=== PATIENT | male | born 1955 | race Caucasian/White ===

== ENCOUNTER 2016-10-11 20:25 | Inpatient (IN) | payer OTHER ==
[~2016-10-11] VITALS: Ht 167.6 cm; Wt 80.2 kg
[~2016-10-11 20:25] MED LIST: FURO20TA3 PO; HYDR12.58 PO; LISI10TA2 PO; [UNRECOGNIZED DRUG - OTHER]
[2016-10-11] MEDS ORDERED: SODIUM CHLORIDE 0.9% 1L BAG IV* STA (21:19)
[2016-10-11] MEDS ORDERED: FURO20TA3 PO (21:33)
[2016-10-11] MEDS ORDERED: SPIR50TA PO (21:34)
[2016-10-11 21:53] LABS: ABNORMAL IP MESSAGE 1; BASOPHILS % 0.4 % (0.0-2.0); EOSINOPHILS % 2.4 % (0.0-7.0); HEMATOCRIT 23.3 % (42.0-52.0); LYMPHOCYTES % 10.8 % (15.0-51.0); MEAN CORPUSCULAR HEMOGLOBIN 36.7 pg (29.0-33.0); MEAN CORPUSCULAR HGB CONC 34.3 g/dl (32.0-37.0); MEAN CORPUSCULAR VOLUME 106.9 fl (82.0-101.0); MEAN PLATELET VOLUME 10.9 fl (7.4-10.4); MONOCYTES % 12.7 % (0.0-11.0); NEUTROPHILS % 69.1 % (39.0-77.0); NUCLEATED RED BLOOD CELLS% 0.3 /100WBC (0.0-0.0); PLATELET COUNT 97 10^3/UL (140-415); POSITIVE DIFF @See below; RED BLOOD COUNT 2.18 10^6/ul (4.70-6.10); WHITE BLOOD COUNT 7.4 10^3/ul (4.8-10.8)
[2016-10-11 22:12] LABS: ALANINE AMINOTRANSFERASE 61 IU/L (13-69); ALBUMIN 2.7 g/dl (3.3-4.9); ALBUMIN/GLOBULIN RATIO 0.51; ALKALINE PHOSPHATASE 205 IU/L (42-121); ANION GAP 16 (8-16); ASPARTATE AMINO TRANSFERASE 153 IU/L (15-46); BILIRUBIN,INDIRECT 6.2 mg/dl (0-1.1); BILIRUBIN,TOTAL 7.7 mg/dl (0.2-1.3); BLOOD UREA NITROGEN 23 mg/dl (7-20); CALCIUM 9.1 mg/dl (8.4-10.2); CARBON DIOXIDE 17 mmol/L (21-31); CHLORIDE 103 mmol/L (97-110); CREATININE 1.15 mg/dl (0.61-1.24); GLUCOSE 101 mg/dl (70-220); SODIUM 130 mmol/L (135-144); TOTAL PROTEIN 7.9 g/dl (6.1-8.1)
--- NOTE | 2016-10-11 22:18 | ERA ---
ER Documentation Chief Complaint Date/Time DATE: 10/11/16 TIME: 22:18 Chief Complaint Chest discomfort HPI [id number] male, presenting to the ER because of chest discomfort about an hour prior to the ER, associated with fever, intermittent cough. He complains of chronic dizziness, denies shortness of breath, complains of denies abdominal pain, vomiting, dysuria, diarrhea. He does not smoke nor drink Past medical history: Cirrhosis, hypertension Past surgical history: None ROS All systems reviewed and are negative except as per history of present illness. Medications Home Meds Reported Medications Spironolactone* (Aldactone*) 50 Mg Tablet, 100 MG PO BID, #60 TAB 10/11/16 Furosemide* (Furosemide*) 20 Mg Tablet, 20 MG PO BID, #30 TAB 10/11/16 Discontinued Reported Medications [Cirrhosis Med] No Conflict Check 12/06/15 Furosemide* (Furosemide*) 20 Mg Tablet, 20 MG PO DAILY, #60 TAB 12/06/15 Hydrochlorothiazide* (Hydrochlorothiazide*) 12.5 Mg Tablet, 12.5 MG PO DAILY, # 30 TAB 12/06/15 Lisinopril* (Lisinopril*) 10 Mg Tablet, 10 MG PO DAILY, #30 TAB 12/06/15 Allergies Allergies: Coded Allergies: No Known Drug Allergies (Verified Allergy, Unknown, 10/11/16) PMhx/Soc History of Surgery: No Anesthesia Reaction: No Hx Neurological Disorder: No Hx Respiratory Disorders: No Hx Cardiac Disorders: Yes (HTN, HIGH BP) Hx Psychiatric Problems: No Hx Miscellaneous Medical Probl: Yes (DX'd Cirrosis in Feb) Hx Alcohol Use: Yes (QUIT feb 2016) Hx Substance Use: No Hx Tobacco Use: Yes (1 CIG /WEEK OR MONTH) Smoking Status: Light tobacco smoker Physical Exam Vitals Vital Signs Date Time Temp Pulse Resp B/P Pulse Ox O2 Delivery O2 Flow Rate FiO2 10/11/16 22:39 100.6 93 17 133/67 100 Room Air 10/11/16 20:50 100.6 110 16 131/99 99 Physical Exam Const: No acute distress. Head: Atraumatic. Eyes: Normal Conjunctiva. ENT: Normal External Ears, Nose and Mouth. Neck: Full range of motion. No meningismus. Resp: Clear to auscultation bilaterally. Cardio: Regular Tachycardic Abd: Soft, non distended, normal bowel sounds, non tender. Skin: No petechiae or rashes. Back: No midline or flank tenderness. Ext: Bilateral leg edema, no calf tenderness Neur: Awake and alert. No focal deficit Psych: Normal Mood and Affect. Result Diagram: 10/11/16211410/11/162114 Results 24 hrs Laboratory Tests Test 10/11/16 21:15 10/11/16 21:30 10/11/16 22:00 10/11/16 22:18 White Blood Count 7.410^3/ul Red Blood Count 2.1810^6/ul Hemoglobin 8.0g/dl Hematocrit 23.3% Mean Corpuscular Volume 106.9fl Mean Corpuscular Hemoglobin 36.7pg Mean Corpuscular Hemoglobin Concent 34.3g/dl Red Cell Distribution Width 16.0% Platelet Count 9710^3/UL Mean Platelet Volume 10.9fl Neutrophils % 69.1% Segmented Neutrophils % (Manual) 80% Lymphocytes % 10.8% Lymphocytes % (Manual) 9% Monocytes % 12.7% Monocytes % (Manual) 9% Eosinophils % 2.4% Eosinophils % (Manual) 2% Basophils % 0.4% Nucleated Red Blood Cells % 0.3/100WBC Neutrophils # (Manual) 10^3/ul Absolute Lymphocytes (Manual) Pending Lymphocytes # 0.710^3/ul Monocytes # 0.710^3/ul Absolute Monocytes (Manual) Pending Eosinophils # 0.110^3/ul Basophils # 10^3/ul Nucleated Red Blood Cells # 0.010^3/ul Macrocytosis 1+ Sodium Level 130mmol/L Potassium Level 6.0mmol/L Chloride Level 103mmol/L Carbon Dioxide Level 17mmol/L Anion Gap 16 Blood Urea Nitrogen 23mg/dl Creatinine 1.15mg/dl Glucose Level 101mg/dl Calcium Level 9.1mg/dl Total Bilirubin 7.7mg/dl Direct Bilirubin 1.50mg/dl Indirect Bilirubin 6.2mg/dl Aspartate Amino Transf (AST/SGOT) 153IU/L Alanine Aminotransferase (ALT/SGPT) 61IU/L Alkaline Phosphatase 205IU/L Troponin I < 0.012ng/ml Total Protein 7.9g/dl Albumin 2.7g/dl Globulin 5.20g/dl Albumin/Globulin Ratio 0.51 Lactic Acid Level 3.9mmol/L Urine Color STEF Urine Clarity SLIGHTLY CLOUDY Urine pH 5.0 Urine Specific [place] 1.019 Urine Ketones NEGATIVEmg/dL Urine Nitrite NEGATIVEmg/dL Urine Bilirubin 1+mg/dL Urine Urobilinogen 2+mg/dL Urine Leukocyte Esterase NEGATIVELeu/ul Urine Microscopic RBC 2/HPF Urine Microscopic WBC 2/HPF Urine Mucus FEW/HPF Urine Hemoglobin NEGATIVEmg/dL Urine Glucose NEGATIVEmg/dL Urine Total Protein NEGATIVEmg/dl Prothrombin Time 27.1Sec Prothrombin Time Ratio 2.1 INR International Normalized Ratio 2.48 Activated Partial Thromboplast Time 45.6Sec Current Medications Medications (Trade) Dose Ordered Sig/Spenser Route PRN Reason Start Time Stop Time Status Last Admin Dose Admin Sodium Chloride 2170 ml 2,170 ml BOLUS OVER 2 HOURS STAT IV* 10/11/16 21:19 10/11/16 21:20 DC 10/11/16 21:30 Ceftriaxone Sodium 50 ml @ 100 mls/hr ONCE ONCE IVPB 10/11/16 23:00 10/11/16 23:29 Azithromycin (Zithromax 500mg/ NS (Pmx)) 250 ml @ 250 mls/hr ONCE ONCE IVPB 10/11/16 23:00 10/11/16 23:59 Morphine Sulfate (morphine) 2 mg ONCE ONCE IV 10/11/16 23:00 10/11/16 23:09 DC Ondansetron HCl (Zofran Inj) 4 mg ONCE ONCE IV 10/11/16 23:09 10/11/16 23:10 DC Acetaminophen (Tylenol Tab) 650 mg ONCE ONCE PO 10/11/16 23:00 10/11/16 23:01 DC Procedures/MDM Repeat potassium is pending [place] [id number] Radiology Main Line: [phone] DIAGNOSTIC IMAGING REPORT Patient: JOSEE HAMILTON : 1955 Age: 60 Sex: M MR #: [id number] DOS: 10/11/162118 Ordering MD: MARIO GARCIA DO Location: E/R Room/Bed: PROCEDURE: CHEST - 1 VIEW CLINICAL INDICATION: 60 year-old male with shortness of breath and sepsis. TECHNIQUE: A single frontal AP semi-erect portable view of the chest was performed. The images were reviewed on a PACS workstation. COMPARISON: None. FINDINGS: The cardiomediastinal silhouette is within normal limits. There is a shallow inspiration. There is qiev-de-[id number] right pleural effusion with associate compressive atelectasis of the right lower lobe. A superimposed infiltrate cannot be excluded. There is minimal left basilar subsegmental atelectasis. There is no evidence for congestive heart failure. There is no evidence for pneumothorax. The osseous structures are intact. IMPRESSION: 1. Shallow inspiration. 2. Zkda-pb-dbohjcra right pleural effusion with associated right lower lobe compressive atelectasis. A superimposed infiltrate cannot be excluded. 3. Minimal left basilar subsegmental atelectasis. .Rory Vargas MD, Date Time Electronically viewed and signed by .Rory Vargas MD, MD on 10/11/2016 22:24 .M/ CC: MARIO GARCIA DO MEDICAL MAKING DECISION: The patient is a 60-year-old male, presenting with acute severe sepsis, acute pneumonia. Was treated with normal saline 30 mL/kg, Rocephin IV, Zithromax IV for acute severe sepsis due to acute pneumonia, morphine 2 mg IV for pain, Zofran 4 mg IV for nausea, Tylenol 650 mg p.o. for fever with good response The differential diagnoses considered include but are not limited to asthma, COPD, pneumonia, pulmonary embolus, pleural effusion, congestive heart failure. Admit MDM: Patient's infectious symptoms have not stabilized and the patient is at risk of rapid decompensation. The patient will be admitted for careful hydration, antibiotic therapy, and infectious source control. Severe Sepsis criteria: Infectious source: pna End organ damage indicated by: Lactate > 2.0 mmol/L Sepsis Management: Time of recognition of severe sepsis/septic shock:22:30 hr Within 3 hours of recognition: Blood cultures x 2 before broad-spectrum antibiotics: Yes 30 ml/kg NS bolus completed Initial lactate 3.9 Repeat lactate pending Critical Care: Critical care time 35 minutes excluding billable procedure Emergent fluid management while maintaining close respiratory support. Provision of immediate and broad-spectrum antibiotic therapy. Simultaneous assessment for possible sources in order to direct targeted therapy. Consideration for invasive and chemical support to prevent cardiopulmonary collapse. Septic Shock Assessment: Any lactic acid > 4.0 no Persistent hypotension (SBP < 90 or 40 mmHg drop, MAP < 65) despite 30 mL/kg IV fluid bolusno EKG: Read by emergency physician Rate/Rhythm: Sinus tachycardia 106 beats/min QRS, ST, T-waves: No ST elevation, no T inversion Impression: EKG Departure Diagnosis: Primary Impression: Severe sepsis Additional Impressions: Pneumonia Anemia Thrombocytopenia Coagulopathy Condition: Stable Comments I discussed the findings with the patient. I discussed the patient with the on- call hospitalist Dr. Vieira at 11:10 PM who was made aware of the lab, the treatment, the patient condition. The patient is admitted to medical surgery bed AVA MAE MD Oct 11, 2016 22:18
[2016-10-11 22:25] LABS: TROPONIN-I < 0.012 ng/ml (0.00-0.12)
--- NOTE | 2016-10-11 22:25 | RADRPT ---
PROCEDURE: CHEST - 1 VIEW CLINICAL INDICATION: 60 year-old male with shortness of breath and sepsis. TECHNIQUE: A single frontal AP semi-erect portable view of the chest was performed. The images we re reviewed on a PACS workstation. COMPARISON: None. FINDINGS: The cardiomediastinal silhouette is within normal limits. There is a shallow inspiration. There is m cis-jz-zbpakujc right pleural effusion with associate compressive atelectasis of the right lower lob e. A superimposed infiltrate cannot be excluded. There is minimal left basilar subsegmental atelec tasis. There is no evidence for congestive heart failure. There is no evidence for pneumothorax. Th e osseous structures are intact. IMPRESSION: 1. Shallow inspiration. 2. Sjuh-vs-wgshqkqt right pleural effusion with associated right lower lobe compressive atelectasis . A superimposed infiltrate cannot be excluded. 3. Minimal left basilar subsegmental atelectasis. .Rory Vargas MD, MD Date Time Electronically viewed and signed by .Rory Vargas MD, on 10/11/2016 22:24 .M/
[2016-10-11 22:46] LABS: INR 2.48; PROTIME 27.1 Sec (12.2-14.2); PT RATIO 2.1
[2016-10-11 22:47] LABS: PARTIAL THROMBOPLASTIN TIME 45.6 Sec (25.0-35.0)
[2016-10-11 22:50] LABS: EOSINOPHILS # 0.1 10^3/ul (0.0-0.5); EOSINOPHILS % (M) 2 % (0.0-7.0); LYMPHOCYTES # 0.7 10^3/ul (0.8-2.9); MONOCYTE # 0.7 10^3/ul (0.3-0.9); MONOCYTES % (M) 9 % (0-11)
[2016-10-11 22:51] LABS: BURR CELLS 2+
[2016-10-11 22:55] LABS: ADD UMIC NO; UR ASCORBIC ACID 40 mg/dL (NEGATIVE); UR BILIRUBIN (Dip) 1+ mg/dL (NEGATIVE); UR BLOOD (Dip) NEGATIVE (NEGATIVE); UR CLARITY SLIGHTLY CLOUDY (CLEAR); UR COLOR AMBER (YELLOW); UR GLUCOSE (Dip) NEGATIVE (NEGATIVE); UR KETONES (Dip) NEGATIVE (NEGATIVE); UR LEUKOCYTE ESTERASE (Dip) NEGATIVE Leu/ul (NEGATIVE); UR MUCUS FEW /HPF (NONE SEEN); UR NITRITE (Dip) NEGATIVE (NEGATIVE); UR RBC 2 /HPF (0-5); UR SPECIFIC GRAVITY (Dip) 1.019 (1.003-1.030); UR TOTAL PROTEIN (Dip) NEGATIVE (NEGATIVE); UR UROBILINOGEN (Dip) 2+ mg/dL (NEGATIVE)
[2016-10-11] MEDS ORDERED: morphine 2 MG INJ IV ONE (23:00)
[2016-10-11] MEDS ORDERED: CEFTRIAXONE 1 GM/50 ML (PMX) 50 ML IVPB ONE (23:00)
[2016-10-11] MEDS ORDERED: ACETAMINOPHEN 325 MG TAB PO ONE (23:00)
[2016-10-11] MEDS ORDERED: AZITHROMYCIN 500MG/NS (PMX) 250 ML IVPB ONE (23:00)
[2016-10-11] MEDS ORDERED: ONDANSETRON 4 MG INJ IV ONE (23:09)
[2016-10-12] VITALS (12 sets, daily range): BP systolic 99–108; BP diastolic 52–59; PULSE 93–107; RESP 18–22; TEMP 99.4; Ht 167.6 cm; Wt 80.2 kg
[2016-10-12] MEDS ORDERED: NA POLYST SULFON 15 GM/60 ML BTL PO ONE ×2 (01:25→02:00)
[2016-10-12] MEDS ORDERED: INSULIN REGULAR, HUMAN 100 UNIT/1 ML 3ML VIAL IV ONE (01:26)
[2016-10-12] MEDS ORDERED: ALBUTEROL 0.5% (NEB) 2.5 MG/0.5 ML AMP INH ONE (01:26)
[2016-10-12] MEDS ORDERED: DEXTROSE 50% 50 ML SYRINGE IV PRN (01:30)
[2016-10-12] MEDS ORDERED: FURO40TA4 PO (03:18)
[2016-10-12] MEDS ORDERED: ACETAMINOPHEN 325 MG TAB PO PRN (04:00)
[2016-10-12] MEDS ORDERED: SOD CHLORIDE 0.9% 500 ML IV ONE (04:00)
[2016-10-12] MEDS ORDERED: ONDANSETRON 4 MG INJ IV PRN (04:00)
[2016-10-12] MEDS ORDERED: morphine 2 MG INJ IV PRN (04:00)
[2016-10-12] MEDS: ALBUTEROL/IPRATROPIUM (NEB) 3 ML AMP HHN SCH ×5 (05:21→20:48)
[2016-10-12] MEDS: LEVOFLOXACIN 500MG/D5W (PMX) 100 ML IVPB SCH (05:39)
--- NOTE | 2016-10-12 05:56 | HP ---
Date/Time of Note Date/Time of Note DATE: 10/12/16 TIME: 05:45 Assessment/Plan VTE Prophylaxis VTE Prophylaxis Intervention: SCD's Lines/Catheters IV Catheter Type (from Nrs): Saline Lock Urinary Cath still in place: No Assessment/Plan Assessment/Plan 1. Sepsis, as evidenced by fever, tachycardia and lactic acidosis, likely secondary to pneumonia -IV antibiotic -Follow-up culture results 2. Chest pain, likely from pneumonia, however will rule out ACS -First troponin is negative and the EKG was no ST-T wave abnormalities -Trend troponin, obtain 2D echo -Supplemental oxygen, beta-katty, with as needed nitro and morphine -Cardiology consult as needed 3. Hyperkalemia, most likely due to Aldactone -Will hold Aldactone -He is status post insulin and Kayexalate in the ER -Repeat lab and correct as needed 4. Liver cirrhosis, diagnosed in February of this year -Continue Lasix 5. Anemia and thrombocytopenia, secondary to liver disease -Transfuse as needed 6. Hyperbilirubinemia, likely secondary to liver disease -We will order RUQ ultrasound HPI/ROS Admit Date/Time Admit Date/Time Oct 12, 2016 at 01:24 Hx of Present Illness This is a 60-year-old male with a history of hypertension and liver cirrhosis who presented to the emergency department complaining of chest pain and fever. Pain is slightly left-sided, described as pressure-like and is nonradiating. It started yesterday. Reported nausea but no vomiting. He also reported occasional shortness of breath which is chronic. When he presented to the ER, he was febrile with a temperature of 100.6, tachycardic with a heart rate of 110. Labs shows a potassium of 6.3, hemoglobin 8, PLT 97, sodium 130, lactic acid has been as high as 3.9 but the last one 2.3.TB 7.7 with DB of 1.5, AST 153. Chest x-ray shows mild to moderate right pleural effusion with probable superimposed infiltrate. . PMH/Family/Social Past Medical History Medical History: hypertension, other (Liver cirrhosis) Social History Smoking Status: Never smoker Drug Use: none Exam/Review of Systems Vital Signs Vitals Vital Signs Date Time Temp Pulse Resp B/P Pulse Ox O2 Delivery O2 Flow Rate FiO2 10/12/16 05:21 91 16 94 21 10/12/16 03:27 98.8 101/52 10/12/16 02:00 Room Air Intake and Output 10/11/16 10/11/16 10/12/16 15:00 23:00 07:00 Intake Total 2420 ml Balance 2420 ml Exam Constitutional: alert, oriented, well developed Head: atraumatic, normocephalic Eyes: PERRL Respiratory: diminished breath sounds Cardiovascular: other (Tachycardic with regular rhythm) Gastrointestinal: non-tender, soft Extremities: normal pulses Labs Result Diagram: 10/11/16211410/12/16 0040 Medications Medications Current Medications Dextrose 100 ml 100 ml ONCE PRN IV POC BLOOD GLUCOSE <250 MG/DL Last administered on 10/12/16 01:52; Admin Dose 100 ML; Start 10/12/16 at 01:30 Levofloxacin/ Dextrose (Levaquin 500mg/ D5W 100 ml (Pmx)) 100 ml @ 100 mls/hr Q24H IVPB Last administered on 10/12/16 05:39; Admin Dose 100 MLS/HR; Start 10/12/16 at 04:00 Ondansetron HCl (Zofran Inj) 4 mg Q6H PRN IV NAUSEA AND/OR VOMITING; Start 10/12 at 04:00 Acetaminophen (Tylenol Tab) 650 mg Q6H PRN PO PAIN AND OR ELEVATED TEMP; Start 10/12/16 at 04:00 Morphine Sulfate (morphine) 2 mg Q4H PRN IV pain; Start 10/12/16 at 04:00 SAE DAVISON MD Oct 12, 2016 05:56
[2016-10-12 07:41] LABS: ABNORMAL IP MESSAGE 1; HEMATOCRIT 20.8 % (42.0-52.0); MEAN CORPUSCULAR HEMOGLOBIN 36.1 pg (29.0-33.0); MEAN CORPUSCULAR HGB CONC 33.7 g/dl (32.0-37.0); MEAN CORPUSCULAR VOLUME 107.2 fl (82.0-101.0); MEAN PLATELET VOLUME 10.5 fl (7.4-10.4); NUCLEATED RED BLOOD CELLS% 0.1 /100WBC (0.0-0.0); POSITIVE DIFF @See below; RED BLOOD COUNT 1.94 10^6/ul (4.70-6.10); WHITE BLOOD COUNT 18.8 10^3/ul (4.8-10.8)
[2016-10-12 07:46] LABS: PLATELET COUNT 74 10^3/UL (140-415)
[2016-10-12 08:14] LABS: ALBUMIN 2.1 g/dl (3.3-4.9); ALBUMIN/GLOBULIN RATIO 0.46; BILIRUBIN,DIRECT 1.8 mg/dl (0.00-0.20); BILIRUBIN,INDIRECT 4.9 mg/dl (0-1.1); BILIRUBIN,TOTAL 6.7 mg/dl (0.2-1.3); CALCIUM 8.5 mg/dl (8.4-10.2); CREATININE 1.43 mg/dl (0.61-1.24); MAGNESIUM 1.9 mg/dl (1.7-2.5); PHOSPHORUS 3.9 mg/dl (2.5-4.9); TOTAL PROTEIN 6.6 g/dl (6.1-8.1)
[2016-10-12 09:58] LABS: ANISOCYTOSIS 2+ (0-0); GIANT THROMBO% (M) 1 % (0-0); METAMYELOCYTES %M 2 % (0-0); MONOCYTES % (M) 6 % (0-11); PLATELET ESTIMATE DECREASED; POIKILOCYTOSIS 3+ (0-0); POLYCHROMASIA 3+ (0-0)
--- NOTE | 2016-10-12 10:18 | RADRPT ---
PROCEDURE: Complete abdominal ultrasound. CLINICAL INDICATION: Abdominal pain TECHNIQUE: Huynh scale and color doppler ultrasound images of the complete abdomen. COMPARISON: None FINDINGS: Pancreas: Not visualized by the loom technician. Liver: Morphology:Normal in size. Contour: Nodularity is present. Echogenicity: Mild coarsening. Focal lesions:None. Main portal vein: Patent with hepatopetal flow. Biliary System: Gallbladder wall: Mildly thickened. Gallstones: None. Intrahepatic bile ducts: Normal caliber. Common bile duct diameter (mm): 3.0 Kidneys: Left kidney not identified. Right length (cm) : 9.6 Right cortical thickness: Normal. Echogenicity: Normal Hydronephrosis: None. Renal calculi: None. Focal lesions: None. Spleen: Size: Normal. 10.60 Focal lesions: None. Free fluid/ascites: Mild perihepatic ascites Abdominal aorta: Not visualized by the loom technician. Other findings: Partially visualized. Pleural effusion IMPRESSION: Cirrhotic appearing liver with mild ascites. Normal caliber intrahepatic extrahepatic biliary system. No gallstones. Mild gallbladder wall thickening is nonspecific in the presence of ascites/hepatic dysfunction if cl inical concern for acalculous cholecystitis HIDA scan can be obtained for further evaluation. RPTAT: AADD .Amaury Bailey MD, MD Date Time Electronically viewed and signed by .Amaury Bailey MD, MD on 10/12/2016 10:18 .B/
--- NOTE | 2016-10-12 11:03 | PN ---
Date/Time of Note Date/Time of Note DATE: 10/12/16 TIME: 10:58 Assessment/Plan VTE Prophylaxis VTE Prophylaxis Intervention: LMWH Lines/Catheters IV [facility] Saline Lock Urinary Cath still in place: No Assessment/Plan Chief Complaint/Hosp Course O: Admitted w fever lt-sided substernal atypical chest pain. Cough w no expectoration. Occasional abd pain. Has loose BMs no blood. Unable to characterize abd pain. No aggravating or relieving factors. Received antibiotics at [facility] recently. Quit alcohol February. S: Fever improved No pallor icterus adenopathy Regular Bs, diminished Rt, no tachypnea possibly some musculoskeletal tenderness. Bs +nt nd, no R/R/G Mild edema negative Homans sign A/P 1. Atypical chest pain. Probably musculoskeletal versus pleurisy stable rule out ACS 2. Rt pleural effusion. Should fever return, will need urgent thoracentesis with FFP 3. Diarrhea, review medicines. 4. Fever probably due to community-acquired pneumonia. Stable continue antibiotics. 5. Chronic cirrhosis/possible chronic liver disease sequently. No encephalopathy. Paracentesis as needed. Coagulopathy without any bleeding at present. 6. Past alcohol 7. Apical ischemia, possibly due to liver disease or n.p.o. status 8. Coronary artery disease? Problems: Exam/Review of Systems Vital Signs Vitals Vital Signs Date Time Temp Pulse Resp B/P Pulse Ox O2 Delivery O2 Flow Rate FiO2 10/12/16 09:42 101 18 97 21 10/12/16 07:56 98.3 105/53 10/12/16 02:00 Room Air Intake and Output 10/11/16 10/11/16 10/12/16 15:00 23:00 07:00 Intake Total 2420 ml Balance 2420 ml Results Result Diagram: 10/12/16 0648 10/12/16 0648 Results 24 hrs Laboratory Tests Test 10/11/16 21:15 10/11/16 21:30 10/11/16 22:00 10/11/16 22:18 White Blood Count 7.4 Red Blood Count 2.18 L Hemoglobin 8.0 L Hematocrit 23.3 L Mean Corpuscular Volume 106.9 H Mean Corpuscular Hemoglobin 36.7 H Mean Corpuscular Hemoglobin Concent 34.3 Red Cell Distribution Width 16.0 H Platelet Count 97 L Mean Platelet Volume 10.9 H Neutrophils % 69.1 Segmented Neutrophils % (Manual) 80 H Lymphocytes % 10.8 L Lymphocytes % (Manual) 9 L Monocytes % 12.7 H Monocytes % (Manual) 9 Eosinophils % 2.4 Eosinophils % (Manual) 2 Basophils % 0.4 Nucleated Red Blood Cells % 0.3 H Neutrophils # (Manual) Absolute Lymphocytes (Manual) 0.6 L Lymphocytes # 0.7 L Monocytes # 0.7 Absolute Monocytes (Manual) 0.6 Eosinophils # 0.1 Basophils # Nucleated Red Blood Cells # 0.0 Macrocytosis 1+ Sodium Level 130 L Potassium Level 6.0 H Chloride Level 103 Carbon Dioxide Level 17 L Anion Gap 16 Blood Urea Nitrogen 23 H Creatinine 1.15 Glucose Level 101 Calcium Level 9.1 Total Bilirubin 7.7 H Direct Bilirubin 1.50 H Indirect Bilirubin 6.2 H Aspartate Amino Transf (AST/SGOT) 153 H Alanine Aminotransferase (ALT/SGPT) 61 Alkaline Phosphatase 205 H Troponin I < 0.012 Total Protein 7.9 Albumin 2.7 L Globulin 5.20 H Albumin/Globulin Ratio 0.51 Lactic Acid Level 3.9 *H Urine Color STEF Urine Clarity SLIGHTLY CLOUDY A Urine pH 5.0 Urine Specific [place] 1.019 Urine Ketones NEGATIVE Urine Nitrite NEGATIVE Urine Bilirubin 1+ H Urine Urobilinogen 2+ H Urine Leukocyte Esterase NEGATIVE Urine Microscopic RBC 2 Urine Microscopic WBC 2 Urine Mucus FEW A Urine Hemoglobin NEGATIVE Urine Glucose NEGATIVE Urine Total Protein NEGATIVE Prothrombin Time 27.1 H Prothrombin Time Ratio 2.1 INR International Normalized Ratio 2.48 Activated Partial Thromboplast Time 45.6 H Test 10/11/16 23:00 10/12/16 00:40 10/12/16 06:48 10/12/16 08:28 Potassium Level 6.5 *H 6.3 *H 6.0 H Lactic Acid Level 2.6 *H 2.3 *H White Blood Count 18.8 #H Red Blood Count 1.94 L Hemoglobin 7.0 L Hematocrit 20.8 L Mean Corpuscular Volume 107.2 H Mean Corpuscular Hemoglobin 36.1 H Mean Corpuscular Hemoglobin Concent 33.7 Red Cell Distribution Width 16.0 H Platelet Count 74 #L Mean Platelet Volume 10.5 H Neutrophils % Segmented Neutrophils % (Manual) 70 Band Neutrophils % (Manual) 20 H Lymphocytes % Lymphocytes % (Manual) 2 L Monocytes % Monocytes % (Manual) 6 Eosinophils % Basophils % Metamyelocytes % (manual) 2 H Nucleated Red Blood Cells % 0.1 H Neutrophils # (Manual) 13.9 H Band Neutrophils # 3.7 H Absolute Lymphocytes (Manual) 0.3 L Lymphocytes # Monocytes # Absolute Monocytes (Manual) 1.1 H Eosinophils # Basophils # Metamyelocytes # 0.3 H Nucleated Red Blood Cells # Thrombocytosis 1 H Platelet Estimate DECREASED Polychromasia 3+ Poikilocytosis 3+ Anisocytosis 2+ Macrocytosis 2+ Sodium Level 132 L Chloride Level 109 Carbon Dioxide Level 15 L Anion Gap 14 Blood Urea Nitrogen 23 H Creatinine 1.43 H Glucose Level 37 #*L Calcium Level 8.5 Phosphorus Level 3.9 Magnesium Level 1.9 Total Bilirubin 6.7 H Direct Bilirubin 1.80 H Indirect Bilirubin 4.9 H Aspartate Amino Transf (AST/SGOT) 127 H Alanine Aminotransferase (ALT/SGPT) 55 Alkaline Phosphatase 166 H Troponin I 0.021 Total Protein 6.6 # Albumin 2.1 L Globulin 4.50 H Albumin/Globulin Ratio 0.46 Bedside Glucose 101 Test 10/12/16 08:29 10/12/16 09:26 Bedside Glucose 121 Fasting Glucose 68 L Medications Medications Current Medications Dextrose 100 ml 100 ml ONCE PRN IV POC BLOOD GLUCOSE <250 MG/DL Last administered on 10/12/16 01:52; Admin Dose 100 ML; Start 10/12/16 at 01:30 Levofloxacin/ Dextrose (Levaquin 500mg/ D5W 100 ml (Pmx)) 100 ml @ 100 mls/hr Q24H IVPB Last administered on 10/12/16 05:39; Admin Dose 100 MLS/HR; Start 10/12/16 at 04:00 Ondansetron HCl (Zofran Inj) 4 mg Q6H PRN IV NAUSEA AND/OR VOMITING; Start 10/12 at 04:00 Acetaminophen (Tylenol Tab) 650 mg Q6H PRN PO PAIN AND OR ELEVATED TEMP; Start 10/12/16 at 04:00 Morphine Sulfate (morphine) 2 mg Q4H PRN IV pain; Start 10/12/16 at 04:00 LINWOOD SHERIDAN MD Oct 12, 2016 11:02
[2016-10-12] MEDS ORDERED: SOD CHLORIDE 0.9% 250 ML IV* ONE (11:04)
[2016-10-12] MEDS: FAMOTIDINE 20 MG TAB PO SCH (14:14)
[2016-10-12 16:35] LABS: INR 3.18; PROTIME 33.1 Sec (12.2-14.2); PT RATIO 2.6
[2016-10-13] VITALS (12 sets, daily range): BP systolic 104–145; BP diastolic 50–74; PULSE 91–103; RESP 16–20
[2016-10-13] MEDS: ALBUTEROL/IPRATROPIUM (NEB) 3 ML AMP HHN SCH ×5 (01:34→12:42)
[2016-10-13] MEDS: LEVOFLOXACIN 500MG/D5W (PMX) 100 ML IVPB SCH (03:35)
[2016-10-13 06:06] LABS: HAAIG REFLEX REFLEX FILED
[2016-10-13 06:10] LABS: ABNORMAL IP MESSAGE 1; HEMATOCRIT 17.6 % (42.0-52.0); MEAN CORPUSCULAR HEMOGLOBIN 36.2 pg (29.0-33.0); MEAN CORPUSCULAR HGB CONC 33.5 g/dl (32.0-37.0); MEAN PLATELET VOLUME 10.2 fl (7.4-10.4); NUCLEATED RED BLOOD CELLS% 0.1 /100WBC (0.0-0.0); PLATELET COUNT 68 10^3/UL (140-415); POSITIVE DIFF @See below; RED BLOOD COUNT 1.63 10^6/ul (4.70-6.10); RED CELL DISTRIBUTION WIDTH 16.5 % (11.5-14.5); WHITE BLOOD COUNT 16.2 10^3/ul (4.8-10.8)
[2016-10-13 06:23] LABS: HEMOGLOBIN 5.9 g/dl (14.0-18.0); INR 2.36; PROTIME 26.1 Sec (12.2-14.2)
[2016-10-13] MEDS ORDERED: SOD CHLORIDE 0.9% 250 ML IV* ONE (06:26)
[2016-10-13 06:32] LABS: ALANINE AMINOTRANSFERASE 60 IU/L (13-69); ALBUMIN 2.1 g/dl (3.3-4.9); ALBUMIN/GLOBULIN RATIO 0.52; ALKALINE PHOSPHATASE 141 IU/L (42-121); ANION GAP 12 (8-16); ASPARTATE AMINO TRANSFERASE 107 IU/L (15-46); BILIRUBIN,INDIRECT 4.9 mg/dl (0-1.1); BILIRUBIN,TOTAL 6.4 mg/dl (0.2-1.3); BLOOD UREA NITROGEN 28 mg/dl (7-20); CALCIUM 8.5 mg/dl (8.4-10.2); CARBON DIOXIDE 17 mmol/L (21-31); CHLORIDE 109 mmol/L (97-110); CHOL/HDL RATIO 2.9 RATIO; CHOLESTEROL 50 mg/dl (100-200); CREATININE 1.32 mg/dl (0.61-1.24); GLUCOSE 83 mg/dl (70-220); HDL CHOLESTEROL 17 mg/dl (30-78); MAGNESIUM 1.9 mg/dl (1.7-2.5); PHOSPHORUS 4.2 mg/dl (2.5-4.9); POTASSIUM 5.1 mmol/L (3.5-5.1); SODIUM 133 mmol/L (135-144); TOTAL PROTEIN 6.1 g/dl (6.1-8.1); TRIGLYCERIDES 37 mg/dl (0-149)
[2016-10-13 06:48] LABS: TROPONIN-I < 0.012 ng/ml (0.00-0.12)
[2016-10-13 07:16] LABS: HEPATITIS B CORE ANTIBODY NEGATIVE (NEGATIVE)
[2016-10-13] MEDS: FAMOTIDINE 20 MG TAB PO SCH (09:09)
[2016-10-13 09:14] LABS: ANISOCYTOSIS 2+ (0-0); EOSINOPHILS % (M) 2 % (0-7); ERYTHROBLAST% (NRBC) (M) 1 % (0-0); GIANT THROMBO% (M) 1 % (0-0); MICROCYTOSIS 1+ (0-0); MONOCYTES % (M) 14 % (0-11); PLATELET ESTIMATE DECREASED; POIKILOCYTOSIS 3+ (0-0); POLYCHROMASIA 3+ (0-0)
--- NOTE | 2016-10-13 11:27 | PN ---
Date/Time of Note Date/Time of Note DATE: 10/13/16 TIME: 11:21 Assessment/Plan VTE Prophylaxis VTE Prophylaxis Intervention: contraindicated VTE Contraindication Reason: blood coagulation disorder Lines/Catheters IV [facility] (from [facility]): Saline Lock Urinary Cath still in place: No Assessment/Plan Chief Complaint/Hosp Course S: Admitted w fever lt-sided substernal atypical chest pain. Cough w no expectoration. Occ abd pain. Has loose BMs no blood. Unable to characterize abd pain. No aggravating or relieving factors. Received antibiotics at [place] recently. Quit alcohol February. 10/13- no further cp. abd pain/ diarrhea. no active bleeding. no dyspnea. S: Fever improved No pallor icterus Reg; no m/r/g Bs, dimin Rt, no tachypnea. Bs +nt nd, no R/R/G Mild edema negative Homans sign A/P 1. Atypical chest pain. Probably musculoskeletal vs pleurisy. no ACS 2. Rt pleural effusion. Should fever return, will need urgent thoracentesis with FFP 3. Diarrhea, review medicines. ro c diff 4. Fever probably due to CAP. Stable finish antibiotics. 5. Chr cirrhosis/possible chr liver dz sequela. No encephalopathy. Paracentesis prn. Coagulopathy without any bleeding at present. 6. Past alcohol 7. Hypoglycemia; possibly due to liver dz or npo status 8. Coronary artery disease? 9. Hep C? confirmatory test needed. 10. Anemia- likely chr dz; occult stool still pending. Ct a/p ordered. h/h @ 8pm. being transfused. Problems: Exam/Review of Systems Vital Signs Vitals Vital Signs Date Time Temp Pulse Resp B/P Pulse Ox O2 Delivery O2 Flow Rate FiO2 10/13/16 09:23 116 20 98 21 10/13/16 08:07 98.3 109/61 10/12/16 02:00 Room Air Intake and Output 10/12/16 10/12/16 10/13/16 15:00 23:00 07:00 Intake Total 800 ml 772 ml 400 ml Balance 800 ml 772 ml 400 ml Results Result Diagram: 10/13/16 0551 10/13/16 0551 Results 24 hrs Laboratory Tests Test 10/12/16 12:50 10/12/16 16:05 10/13/16 05:32 10/13/16 05:50 Bedside Glucose 142 Prothrombin Time 33.1 #H Prothrombin Time Ratio 2.6 INR International Normalized Ratio 3.18 Lab Scanned Report BLOOD TRANSFUSION Ferritin 233.0 Test 10/13/16 05:51 10/13/16 05:52 10/13/16 08:00 White Blood Count 16.2 H Red Blood Count 1.63 L Hemoglobin 5.9 *L Hematocrit 17.6 L Mean Corpuscular Volume 108.0 H Mean Corpuscular Hemoglobin 36.2 H Mean Corpuscular Hemoglobin Concent 33.5 Red Cell Distribution Width 16.5 H Platelet Count 68 L Mean Platelet Volume 10.2 Neutrophils % Segmented Neutrophils % (Manual) 73 Band Neutrophils % (Manual) 4 Lymphocytes % Lymphocytes % (Manual) 7 L Monocytes % Monocytes % (Manual) 14 H Eosinophils % Eosinophils % (Manual) 2 Basophils % Nucleated Red Blood Cells % 1 H Neutrophils # (Manual) 11.9 H Band Neutrophils # 0.6 Absolute Lymphocytes (Manual) 1.1 Lymphocytes # Monocytes # Absolute Monocytes (Manual) 2.2 H Eosinophils # Basophils # Nucleated Red Blood Cells # Thrombocytosis 1 H Platelet Estimate DECREASED Polychromasia 3+ Poikilocytosis 3+ Anisocytosis 2+ Microcytosis 1+ Macrocytosis 2+ Prothrombin Time 26.1 #H Prothrombin Time Ratio 2.0 INR International Normalized Ratio 2.36 Sodium Level 133 L Potassium Level 5.1 Chloride Level 109 Carbon Dioxide Level 17 L Anion Gap 12 Blood Urea Nitrogen 28 H Creatinine 1.32 H Glucose Level 83 # Calcium Level 8.5 Phosphorus Level 4.2 Magnesium Level 1.9 Total Bilirubin 6.4 H Direct Bilirubin 1.50 H Indirect Bilirubin 4.9 H Aspartate Amino Transf (AST/SGOT) 107 H Alanine Aminotransferase (ALT/SGPT) 60 Alkaline Phosphatase 141 H Lactate Dehydrogenase 642 H Troponin I < 0.012 Total Protein 6.1 Albumin 2.1 L Globulin 4.00 H Albumin/Globulin Ratio 0.52 Triglycerides Level 37 Cholesterol Level 50 L LDL Cholesterol, Calculated 26 HDL Cholesterol 17 L Cholesterol/HDL Ratio 2.9 Thyroid Stimulating Hormone (TSH) 3.360 Hepatitis B Surface Antigen NEGATIVE Hepatitis B Core Total Antibody NEGATIVE Hepatitis C Antibody REACTIVE H Bedside Glucose 147 Medications Medications Current Medications Dextrose 100 ml 100 ml ONCE PRN IV POC BLOOD GLUCOSE <250 MG/DL Last administered on 10/12/16t 01:52; Admin Dose 100 ML; Start 10/12/16 at 01:30 Levofloxacin/ Dextrose (Levaquin 500mg/ D5W 100 ml (Pmx)) 100 ml @ 100 mls/hr Q24H IVPB Last administered on 10/13/16 03:35; Admin Dose 100 MLS/HR; Start 10/12/16 at 04:00 Ondansetron HCl (Zofran Inj) 4 mg Q6H PRN IV NAUSEA AND/OR VOMITING; Start 10/12 at 04:00 Acetaminophen (Tylenol Tab) 650 mg Q6H PRN PO PAIN AND OR ELEVATED TEMP; Start 10/12/16 at 04:00 Morphine Sulfate (morphine) 2 mg Q4H PRN IV pain; Start 10/12/16 at 04:00 Famotidine (Pepcid) 20 mg DAILY PO Last administered on 10/13/16 09:09; Admin Dose 20 MG; Start 10/12/16 at 11:30 LINWOOD SHERIDAN MD Oct 13, 2016 11:27
[2016-10-13] MEDS ORDERED: PHYTONADIONE 10 MG/ML INJ SC ONE (11:30)
[2016-10-13] MEDS ORDERED: ALBUTEROL/IPRATROPIUM (NEB) 3 ML AMP HHN PRN (15:30)
[2016-10-13] MEDS: metroNIDAZOLE 500 MG TAB PO SCH ×2 (16:18→21:41)
[2016-10-13 19:58] LABS: HEMATOCRIT 24.1 % (42.0-52.0); HEMOGLOBIN 8.4 g/dl (14.0-18.0)
[2016-10-13] MEDS: LACTOBACILLUS RHAMNOSUS CAP PO SCH (21:41)
[2016-10-14] VITALS (12 sets, daily range): BP systolic 108–128; BP diastolic 59–69; PULSE 79–98; RESP 18–20
[2016-10-14] MEDS: LEVOFLOXACIN 500 MG TAB PO SCH (06:21)
[2016-10-14] MEDS: metroNIDAZOLE 500 MG TAB PO SCH ×3 (06:21→21:59)
[2016-10-14 08:08] LABS: ABNORMAL IP MESSAGE 1; HEMATOCRIT 23.4 % (42.0-52.0); HEMOGLOBIN 8.2 g/dl (14.0-18.0); MEAN CORPUSCULAR HEMOGLOBIN 35.5 pg (29.0-33.0); MEAN CORPUSCULAR VOLUME 101.3 fl (82.0-101.0); MEAN PLATELET VOLUME 10.8 fl (7.4-10.4); NUCLEATED RED BLOOD CELLS% 0.2 /100WBC (0.0-0.0); PLATELET COUNT 65 10^3/UL (140-415); POSITIVE DIFF @See below; RED BLOOD COUNT 2.31 10^6/ul (4.70-6.10); WHITE BLOOD COUNT 10.5 10^3/ul (4.8-10.8)
[2016-10-14 08:22] LABS: INR 2.54; PROTIME 27.7 Sec (12.2-14.2); PT RATIO 2.2
[2016-10-14 08:32] LABS: ALBUMIN 1.9 g/dl (3.3-4.9); ALBUMIN/GLOBULIN RATIO 0.46; BILIRUBIN,DIRECT 2.1 mg/dl (0.00-0.20); BILIRUBIN,INDIRECT 4.9 mg/dl (0-1.1); CALCIUM 8.7 mg/dl (8.4-10.2); CREATININE 0.9 mg/dl (0.61-1.24); MAGNESIUM 1.9 mg/dl (1.7-2.5); PHOSPHORUS 3.6 mg/dl (2.5-4.9); POTASSIUM 4.8 mmol/L (3.5-5.1)
[2016-10-14] MEDS: LACTOBACILLUS RHAMNOSUS CAP PO SCH ×2 (09:06→21:59)
[2016-10-14] MEDS: FAMOTIDINE 20 MG TAB PO SCH (09:06)
[2016-10-14 09:32] LABS: FOLATE 8.9 ng/ml (2.8-20.0)
[2016-10-14 09:35] LABS: ANISOCYTOSIS 3+ (0-0); BASOPHILS % (M) 2 % (0-2); EOSINOPHILS % (M) 4 % (0-7); GIANT THROMBO% (M) 1 % (0-0); METAMYELOCYTES %M 3 % (0-0); MICROCYTOSIS 2+ (0-0); MONOCYTES % (M) 11 % (0-11); MYELOCYTES % (M) 2 % (0-0); PLATELET ESTIMATE DECREASED; POIKILOCYTOSIS 3+ (0-0); POLYCHROMASIA 3+ (0-0)
--- NOTE | 2016-10-14 15:26 | PN ---
Date/Time of Note Date/Time of Note DATE: 10/14/16 TIME: 14:46 Assessment/Plan VTE Prophylaxis VTE Prophylaxis Intervention: contraindicated VTE Contraindication Reason: blood coagulation disorder Lines/Catheters IV C[facility] Type (from [facility] Saline Lock Urinary Cath still in place: No Assessment/Plan Assessment/Plan 1. Abdominal pain at umbilicus - CT abd/pelvis previously ordered 2/ to abdominal pain and diarrhea. Will r/ o any structural abnormalities vs colitis vs toxic megacolon as cause of pain 2. Cdiff colitis - Continue on Flagyl day 2 and lactobacillus 3. Atypical chest pain - resolved 4. Hepatitis C - Repeat HCV AB and will add HCV RNA testing this am due to +HCV Ab and possibility of false positive since no risk factors - Patient denies any h/o IV drug abuse or blood transfusions in the 80s - If +, will most likely need to be set up with GI specialist 5. Chronic alcohol induced cirrhosis - stable - No encephalopathy appreciated - paracentesis PRN and last was 3 months ago but denies any infections, fevers - no acute abdomen appreciated 6. Elevated liver enzymes - CT abdomen/pelvis pending - GB US showed sludge without stones, may need HIDA based on CT results and if LFTs continue to worsen 7. anemia secondary to liver cirrhosis - stable. will continue to monitor and transfuse if hgb <7 - tolerated previous transfusions well - MCV elevated but B12 and folate normal 8. h/o alcohol abuse - quit in February Subjective 24 Hr Interval Summary Free Text/Dictation Patient seen and examined at bedside. States feels as if he is more swollen in the upper extremities but denies any pain or discomfort. Also c/o 6/10 umbilical pain with associated nausea. Admits to lightheadedness when changes positions quickly but no LOC. Denies any fevers, chills, kayla bleeding, or RUQ pain. Exam/Review of Systems Vital Signs Vitals Vital Signs Date Time Temp Pulse Resp B/P Pulse Ox O2 Delivery O2 Flow Rate FiO2 10/14/16 12:13 85 10/14/16 11:45 97.7 18 114/62 99 10/13/16 12:42 21 10/12/16 02:00 Room Air Exam General- NAD, awake and alert HEENT- scleral icterus b/l, dry mucous membranes CVS- RRR, no murmurs Lungs- crackles appreciated at bases bilaterally, no wheezes, equal chest rise Abd- soft, tender at umbilicus, nondistended, no fluid shift, tympanic, no guarding or rebound. Ext- 2+ LE edema R>L, swelling of hands and forearms bilaterally, pulses appreciated in all extremities, no flapping tremors Skin- no caput medusa or telangiectasias Results Result Diagram: 10/14/16 0731 10/14/16 0731 Results 24 hrs Laboratory Tests Test 10/13/16 19:52 10/14/16 07:31 Hemoglobin 8.4 #L 8.2 L Hematocrit 24.1 #L 23.4 L White Blood Count 10.5 # Red Blood Count 2.31 #L Mean Corpuscular Volume 101.3 H Mean Corpuscular Hemoglobin 35.5 H Mean Corpuscular Hemoglobin Concent 35.0 Red Cell Distribution Width 20.0 #H Platelet Count 65 L Mean Platelet Volume 10.8 H Neutrophils % Segmented Neutrophils % (Manual) 66 Band Neutrophils % (Manual) 2 Lymphocytes % Lymphocytes % (Manual) 10 L Monocytes % Monocytes % (Manual) 11 Eosinophils % Eosinophils % (Manual) 4 Basophils % Basophils % (Manual) 2 Metamyelocytes % (manual) 3 H Myelocytes % (Manual) 2 H Nucleated Red Blood Cells % 0.2 H Neutrophils # (Manual) 7.0 Band Neutrophils # 0.2 Absolute Lymphocytes (Manual) 1.0 Lymphocytes # Monocytes # Absolute Monocytes (Manual) 1.1 H Eosinophils # Basophils # Basophils # (Manual) 0.2 H Metamyelocytes # 0.3 H Myelocytes # 0.2 H Nucleated Red Blood Cells # Thrombocytosis 1 H Platelet Estimate DECREASED Polychromasia 3+ Poikilocytosis 3+ Anisocytosis 3+ Microcytosis 2+ Macrocytosis 1+ Prothrombin Time 27.7 H Prothrombin Time Ratio 2.2 INR International Normalized Ratio 2.54 Sodium Level 132 L Potassium Level 4.8 Chloride Level 108 Carbon Dioxide Level 20 L Anion Gap 9 Blood Urea Nitrogen 21 H Creatinine 0.90 Glucose Level 85 Calcium Level 8.7 Phosphorus Level 3.6 Magnesium Level 1.9 Total Bilirubin 7.0 H Direct Bilirubin 2.10 #H Indirect Bilirubin 4.9 H Aspartate Amino Transf (AST/SGOT) 97 H Alanine Aminotransferase (ALT/SGPT) 55 Alkaline Phosphatase 155 H Total Protein 6.0 L Albumin 1.9 L Globulin 4.10 H Albumin/Globulin Ratio 0.46 Vitamin B12 Level > 1000 H Folate 8.9 Medications Medications Current Medications Dextrose (D50w Syringe) 100 ml ONCE PRN IV POC BLOOD GLUCOSE <250 MG/DL Last administered on 10/12/16 01:52; Admin Dose 100 ML; Start 10/12/16 at 01:30 Ondansetron HCl (Zofran Inj) 4 mg Q6H PRN IV NAUSEA AND/OR VOMITING; Start 10/12 at 04:00 Acetaminophen (Tylenol Tab) 650 mg Q6H PRN PO PAIN AND OR ELEVATED TEMP; Start 10/12/16 at 04:00 Morphine Sulfate (morphine) 2 mg Q4H PRN IV pain; Start 10/12/16 at 04:00 Famotidine (Pepcid) 20 mg DAILY PO Last administered on 10/14/16 09:06; Admin Dose 20 MG; Start 10/12/16 at 11:30 Levofloxacin (Levaquin) 500 mg DAILY@06 PO Last administered on 10/14/16 06:21 ; Admin Dose 500 MG; Start 10/14/16 at 06:00 Metronidazole (Flagyl) 500 mg Q8 PO Last administered on 10/14/16 06:21; Admin Dose 500 MG; Start 10/13/16 at 15:30 Lactobacillus Acidophilus/ Rhamnosus (Culturelle) 1 cap BID PO Last administered on 10/14/16 09:06; Admin Dose 1 CAP; Start 10/13/16 at 21:00 POPEYE JULIEN MD Oct 14, 2016 15:25
--- NOTE | 2016-10-14 16:42 | RADRPT ---
PROCEDURE: CT Abdomen and Pelvis without contrast. CLINICAL INDICATION: Abdominal pelvic pain. Diarrhea. TECHNIQUE: CT scan of the abdomen and pelvis without contrast was performed on a multidetector hig h-resolution CT scanner. The patient was scanned without intravenous contrast. Coronal and sagittal reformatted images were obtained from the axial source images. Images were reviewed on a high-resol [employer] PACS workstation. The total exam CTDI equals 15.35 mGy and the total exam DLP equals 944.21 mG y-cm. One or more of the following dose reduction techniques were used: - Automated exposure control. - Adjustment of the mA and/or kV according to patient size. - Use of iterative reconstruction technique. COMPARISON: Ultrasound abdomen 10/12/2016 FINDINGS: CT abdomen: The lung bases are remarkable for a very large right-sided pleural effusion. The heart size is norm al with a small circumferential pericardial effusion. Minor atelectasis is seen in the left lung bas e. The liver is shrunken and cirrhotic in appearance. Severe cirrhotic changes are present. The sp nata is normal in size and homogeneous in density. The stomach is distended and filled with food an d ingested material, but is otherwise grossly unremarkable. The pancreas as visualized is normal. The gallbladder is remarkable for circumferential gallbladder wall thickening and edema with small l ayering gallstones, reactive in nature secondary to the cirrhosis. The biliary tree is unremarkable and there is no evidence for biliary dilatation. The adrenal glands are symmetric and normal. The kidneys are symmetrically unremarkable as well. No renal calculus or obstructive uropathy or mass lesion is seen. The aorta is of normal caliber. Aortic vascular calcifications are present. There is no retroperit tamez lymphadenopathy. The hoang hepatis region is clear. The bowel and mesentery, as visualized, are equally remarkable for diffuse scattered mesenteric edema. CT pelvis: The small bowel loops situated within the pelvis are unremarkable. The pelvic organs are normal. T he pelvic sidewalls and inguinal regions are clear. The sigmoid colon and rectum are remarkable for sigmoid diverticulosis. No mass or adenopathy is seen. No free fluid is present. No acute inflamma tion is identified at this time. Third spacing and edema of the subcutaneous tissues of the abdomin al pelvic wall is identified. The surrounding osseous structures are remarkable for degenerative spondylosis of the spine. No ost eolytic or osteoblastic lesion is detected. Multilevel degenerative enthesopathy of the spine is marycruz ntified. IMPRESSION: 1. Very large right pleural effusion with adjacent atelectasis. 2. Severe, advanced, end-stage cirrhosis of the liver. 3. Scattered mesenteric edema throughout the abdominal pelvic cavity. 4. Sigmoid diverticulosis, without evidence for diverticulitis. 5. Scattered benign chronic age-related senescent changes. 6. Reactive gallbladder wall thickening and edema with gallstones. 7. Significant third spacing and edema throughout the body. RPTAT: HMJB .Kal Silva MD, Date Time Electronically viewed and signed by .Kal Silva MD, on 10/14/2016 16:42 .B/
[2016-10-15] VITALS (12 sets, daily range): BP systolic 99–108; BP diastolic 56–64; PULSE 80–105; RESP 17–20
[2016-10-15] MEDS: ZOLPIDEM 5 MG TAB PO PRN (01:31)
[2016-10-15] MEDS: LEVOFLOXACIN 500 MG TAB PO SCH (06:05)
[2016-10-15] MEDS: metroNIDAZOLE 500 MG TAB PO SCH ×2 (06:05→13:10)
[2016-10-15 07:36] LABS: ABNORMAL IP MESSAGE 1; HEMATOCRIT 23.6 % (42.0-52.0); MEAN CORPUSCULAR HEMOGLOBIN 34.8 pg (29.0-33.0); MEAN CORPUSCULAR HGB CONC 33.9 g/dl (32.0-37.0); MEAN CORPUSCULAR VOLUME 102.6 fl (82.0-101.0); MEAN PLATELET VOLUME 10.8 fl (7.4-10.4); PLATELET COUNT 63 10^3/UL (140-415); POSITIVE DIFF @See below; RED CELL DISTRIBUTION WIDTH 19.9 % (11.5-14.5); WHITE BLOOD COUNT 9.3 10^3/ul (4.8-10.8)
[2016-10-15 08:03] LABS: ALBUMIN 1.8 g/dl (3.3-4.9); ALBUMIN/GLOBULIN RATIO 0.46; BILIRUBIN,DIRECT 1.3 mg/dl (0.00-0.20); BILIRUBIN,TOTAL 5.3 mg/dl (0.2-1.3); CALCIUM 8.5 mg/dl (8.4-10.2); CREATININE 0.84 mg/dl (0.61-1.24); MAGNESIUM 1.8 mg/dl (1.7-2.5); TOTAL PROTEIN 5.7 g/dl (6.1-8.1)
[2016-10-15] MEDS: LACTOBACILLUS RHAMNOSUS CAP PO SCH (08:47)
[2016-10-15] MEDS: FAMOTIDINE 20 MG TAB PO SCH (08:47)
[2016-10-15 10:31] LABS: ANISOCYTOSIS 2+ (0-0); BASOPHILS % (M) 1 % (0-2); BURR CELLS 1+ (0-0); EOSINOPHILS % (M) 4 % (0-7); ERYTHROBLAST% (NRBC) (M) 1 % (0-0); HYPOCHROMASIA 1+ (0-0); METAMYELOCYTES %M 7 % (0-0); MONOCYTES % (M) 12 % (0-11); MYELOCYTES % (M) 1 % (0-0); PLATELET ESTIMATE DECREASED; POIKILOCYTOSIS 3+ (0-0); PROMYELOCYTES #M 0 10^3/ul (0-0); PROMYELOCYTES % (M) 1 % (0-0)
[2016-10-15] MEDS ORDERED: PHYTONADIONE 5 MG in DEXTROSE 5% 50 ML IVPB SCH (11:30)
[2016-10-15 12:09] LABS: INR 2.77; PROTIME 29.6 Sec (12.2-14.2); PT RATIO 2.3
--- NOTE | 2016-10-15 12:48 | PN ---
Date/Time of Note Date/Time of Note DATE: 10/15/16 TIME: 12:34 Assessment/Plan VTE Prophylaxis VTE Prophylaxis Intervention: contraindicated VTE Contraindication Reason: blood coagulation disorder Lines/Catheters [facility] Saline Lock Urinary Cath still in place: No Assessment/Plan Assessment/Plan 1. Abdominal pain - Still present in umbilicus and RUQ - CT abdomen/pelvis showed reactive gallbladder wall thickening and edema with gallstones. US of gallbladder showed mild gallbladder wall thickening with no stones. Discuss with patient that this may be the cause of his pain and surgery may be needed for intervention. Also offered HIDA scan which he would like to pursue to rule out cholecystitis and if present, will consult Surgery. 2. Large right pleural effusion - Patient not symptomatic at rest but does experiencing SOB with exertion - Will order US thoracentesis with pleural fluid studies; however, INR is elevated and will give Vit K today and tomorrow 3. Cdiff colitis - Continue on Flagyl day 2 and lactobacillus - Stool more formed today 4. Atypical chest pain - resolved 5. Hepatitis C - awaiting repeat HCV RNA - Patient denies any h/o IV drug abuse or blood transfusions in the 80s - If +, will most likely need to be set up with GI specialist 6. Chronic alcohol induced cirrhosis - stable - No encephalopathy appreciated - paracentesis PRN and last was 3 months ago but denies any infections, fevers - no acute abdomen appreciated 7. anemia secondary to liver cirrhosis - stable. will continue to monitor and transfuse if hgb <7 - tolerated previous transfusions well - MCV elevated but B12 and folate normal 8. h/o alcohol abuse - quit in February Subjective 24 Hr Interval Summary Free Text/Dictation Patient seen and examined at bedside. Sleeping comfortable but arousable. States his abdominal pain has not changed since yesterday and still located at umbilicus and RUQ. Does admit to SOB with ambulation and has had thoracentesis in the past for pleural effusions. Exam/Review of Systems Vital Signs Vitals Vital Signs Date Time Temp Pulse Resp B/P Pulse Ox O2 Delivery O2 Flow Rate FiO2 10/15/16 11:46 98.1 92 18 106/59 99 10/13/16 12:42 21 10/12/16 02:00 Room Air Intake and Output 10/14/16 10/14/16 10/15/16 15:00 23:00 07:00 Intake Total 300 ml 450 ml 240 ml Balance 300 ml 450 ml 240 ml Exam General- NAD, awake and alert HEENT- scleral icterus b/l, CVS- RRR, no murmurs Lungs- diminished breath sounds on right, crackles left base. no wheezes, equal chest rise Abd- soft, tender at umbilicus, RUQ, nondistended, no fluid shift, no guarding or rebound. Ext- 2+ LE edema R>L, pulses appreciated in all extremities, no flapping tremors Skin- no caput medusa or telangiectasias Neuro- oriented x3. answering questions appropriately Results Result Diagram: 10/15/16 0611 10/15/16 0611 Results 24 hrs Laboratory Tests Test 10/15/16 06:11 10/15/16 11:42 White Blood Count 9.3 Red Blood Count 2.30 L Hemoglobin 8.0 L Hematocrit 23.6 L Mean Corpuscular Volume 102.6 H Mean Corpuscular Hemoglobin 34.8 H Mean Corpuscular Hemoglobin Concent 33.9 Red Cell Distribution Width 19.9 H Platelet Count 63 L Mean Platelet Volume 10.8 H Neutrophils % Segmented Neutrophils % (Manual) 66 Lymphocytes % Lymphocytes % (Manual) 8 L Monocytes % Monocytes % (Manual) 12 H Eosinophils % Eosinophils % (Manual) 4 Basophils % Basophils % (Manual) 1 Metamyelocytes % (manual) 7 H Myelocytes % (Manual) 1 H Promyelocytes % (Manual) 1 H Nucleated Red Blood Cells % 1 H Neutrophils # (Manual) Absolute Lymphocytes (Manual) 0.7 L Lymphocytes # Monocytes # Absolute Monocytes (Manual) 1.1 H Eosinophils # Basophils # Basophils # (Manual) 0.0 Metamyelocytes # 0.6 H Myelocytes # 0.0 Promyelocytes # 0 Nucleated Red Blood Cells # Platelet Estimate DECREASED Hypochromasia 1+ Poikilocytosis 3+ Anisocytosis 2+ Macrocytosis 1+ Sodium Level 131 L Potassium Level 5.0 Chloride Level 107 Carbon Dioxide Level 20 L Anion Gap 9 Blood Urea Nitrogen 20 Creatinine 0.84 Glucose Level 83 Calcium Level 8.5 Magnesium Level 1.8 Total Bilirubin 5.3 H Direct Bilirubin 1.30 #H Indirect Bilirubin 4.0 H Aspartate Amino Transf (AST/SGOT) 86 H Alanine Aminotransferase (ALT/SGPT) 52 Alkaline Phosphatase 176 H Total Protein 5.7 L Albumin 1.8 L Globulin 3.90 H Albumin/Globulin Ratio 0.46 Prothrombin Time 29.6 H Prothrombin Time Ratio 2.3 INR International Normalized Ratio 2.77 Medications Medications Current Medications Dextrose (D50w Syringe) 100 ml ONCE PRN IV POC BLOOD GLUCOSE <250 MG/DL Last administered on 10/12/16 01:52; Admin Dose 100 ML; Start 10/12/16 at 01:30 Ondansetron HCl (Zofran Inj) 4 mg Q6H PRN IV NAUSEA AND/OR VOMITING; Start 10/12 at 04:00 Acetaminophen (Tylenol Tab) 650 mg Q6H PRN PO PAIN AND OR ELEVATED TEMP; Start 10/12/16 at 04:00 Morphine Sulfate (morphine) 2 mg Q4H PRN IV pain; Start 10/12/16 at 04:00 Famotidine (Pepcid) 20 mg DAILY PO Last administered on 10/15/16 08:47; Admin Dose 20 MG; Start 10/12/16 at 11:30 Levofloxacin (Levaquin) 500 mg DAILY@06 PO Last administered on 10/15/16 06:05 ; Admin Dose 500 MG; Start 10/14/16 at 06:00 Metronidazole (Flagyl) 500 mg Q8 PO Last administered on 10/15/16 06:05; Admin Dose 500 MG; Start 10/13/16 at 15:30 Lactobacillus Acidophilus/ Rhamnosus (Culturelle) 1 cap BID PO Last administered on 10/15/16 08:47; Admin Dose 1 CAP; Start 10/13/16 at 21:00 Zolpidem Tartrate (Ambien) 5 mg HS PRN PO INSOMNIA Last administered on 01:31; Admin Dose 5 MG; Start 10/14/16 at 18:00 POPEYE JULIEN MD Oct 15, 2016 12:47 Zolpidem Tartrate (Ambien) 5 mg HS PRN PO INSOMNIA Last administered on 01:31; Admin Dose 5 MG; Start 10/14/16 at 18:00 POPEYE JULIEN MD Oct 15, 2016 12:47
--- NOTE | 2016-10-15 14:44 | RADRPT ---
Echocardiogram Report Patient Name: JOSEE HAMILTON Gender: Male Date: 1955 Study Date: 12-Oct-2016 Country Singer: SONIA Location: I Ref. Physician: SAE DAVISON Quality: Adequate Procedures: Transthoracic echocardiogram with 2D, M-Mode, and Doppler examination, no subcostal images. Indications: Chest Pain. 2D/M Mode Doppler Measurement Value Normal Ranges Measurement Value Normal Ranges AoR Diam MM 3.3 cm AV Peak Lance 2.1 m/sec LVIDd 2D 4.7 3.5 - 5.6 cm AV Peak PG 17.9 mmHg LVIDs 2D 2.2 2.1 - 4.1 cm LVOT Peak Lance 1.5 m/sec LVPWd 2D 1.2 0.6 - 1.1 cm LVOT Peak PG 8.6 mmHg IVSd 2D 1.2 0.6 - 1.1 cm MV E Peak Lance 0.9 m/sec EDV 2D 104.4 cm3 MV A Peak Lance 1.2 m/sec ESV 2D 10.3 cm3 MV E/A 0.8 LA Dimen 2D 3.3 2.3 - 4.0 cm MV Decel Time 141 msec MV Decel [place] 6 MV E/A 0.8 PV Peak Lance 1.5 m/sec PV Peak PG 10.0 mmHg Findings Left Ventricle: Hyperdynamic left ventricular systolic function. Normal left ventricular cavity size. Mild concentric left ventricular hypertrophy. Ejection fraction is visually estimated at 55 %. Tissue Doppler/Mitral Doppler indices are consistent with impaired relaxation (Stage I diastolic dysfunction). E/E`=10. No left ventricular outflow tract gradient at rest. Increased flows at rest without increase but poor Valsalva, increased flows not dagger-shaped appear due to hyperdynamic LV. Right Ventricle: Normal right ventricular size. Left Atrium: The left atrium is normal in size. Right Atrium: The right atrium is normal in size. Atrial Septum: Not well visualized. Mitral Valve: Mild mitral annular calcification. Trace mitral regurgitation. Aortic Valve: Normal appearance of the aortic valve. No significant aortic stenosis or insufficiency. Tricuspid Valve: Normal appearance of the tricuspid valve. There is trace tricuspid regurgitation. Pulmonic Valve: Normal pulmonic valve appearance. No evidence of pulmonic regurgitation. Pericardium: Normal pericardium with no significant pericardial effusion. Aorta: Normal aortic root. IVC: The IVC is not well visualized. Pulmonary Artery: Normal pulmonary artery size. Conclusions 1.Hyperdynamic left ventricular systolic function. Normal left ventricular cavity size. Mild concentric left ventricular hypertrophy. Ejection fraction is visually estimated at 55 %. Tissue Doppler/Mitral Doppler indices are consistent with impaired relaxation (Stage I diastolic dysfunction). E/E`=10. No left ventricular outflow tract gradient at rest. Increased flows at rest without increase but poor Valsalva, increased flows not dagger-shaped appear due to hyperdynamic LV. 2.Normal right ventricular size. Hyperdynamic right ventricular systolic function. 3.Mild mitral annular calcification. Trace mitral regurgitation. 4.Normal appearance of the tricuspid valve. There is trace tricuspid regurgitation. Electronically Signed By: Brown De Souza 15-Oct-2016 14:44:31 -0700 Patient Name: JOSEE HAMILTON Study Date: 12-Oct-2016 [id number]
[2016-10-16] VITALS (11 sets, daily range): BP systolic 98–119; BP diastolic 55–70; PULSE 85–98; RESP 17–19
[2016-10-16] MEDS: metroNIDAZOLE 500 MG TAB PO SCH ×4 (00:28→20:12)
[2016-10-16] MEDS: LACTOBACILLUS RHAMNOSUS CAP PO SCH ×3 (00:28→20:12)
[2016-10-16] MEDS: LEVOFLOXACIN 500 MG TAB PO SCH (05:38)
[2016-10-16 07:41] LABS: ABNORMAL IP MESSAGE 1; BASOPHILS % 0.5 % (0.0-2.0); EOSINOPHILS # 0.4 10^3/ul (0.0-0.5); EOSINOPHILS % 5.1 % (0.0-7.0); HEMATOCRIT 25.5 % (42.0-52.0); HEMOGLOBIN 8.5 g/dl (14.0-18.0); LYMPHOCYTES % 13.4 % (15.0-51.0); MEAN CORPUSCULAR HGB CONC 33.3 g/dl (32.0-37.0); MEAN PLATELET VOLUME 10.2 fl (7.4-10.4); MONOCYTE # 1.5 10^3/ul (0.3-0.9); MONOCYTES % 18.8 % (0.0-11.0); NEUTROPHILS % 56.7 % (39.0-77.0); PLATELET COUNT 66 10^3/UL (140-415); POSITIVE DIFF @See below; RED CELL DISTRIBUTION WIDTH 19.7 % (11.5-14.5); WHITE BLOOD COUNT 7.7 10^3/ul (4.8-10.8)
[2016-10-16 07:59] LABS: INR 2.58; PT RATIO 2.2
[2016-10-16 08:05] LABS: ALBUMIN/GLOBULIN RATIO 0.47; BILIRUBIN,DIRECT 1.3 mg/dl (0.00-0.20); BILIRUBIN,INDIRECT 3.6 mg/dl (0-1.1); BILIRUBIN,TOTAL 4.9 mg/dl (0.2-1.3); CALCIUM 8.3 mg/dl (8.4-10.2); CREATININE 0.94 mg/dl (0.61-1.24); MAGNESIUM 1.9 mg/dl (1.7-2.5); POTASSIUM 4.8 mmol/L (3.5-5.1); TOTAL PROTEIN 6.2 g/dl (6.1-8.1)
[2016-10-16] MEDS: FAMOTIDINE 20 MG TAB PO SCH (09:20)
--- NOTE | 2016-10-16 09:40 | RADRPT ---
PROCEDURE: HIDA scan CLINICAL INDICATION: 60 -year-old patient with abdominal pain. TECHNIQUE: Following the intravenous injection of 7.5 mCi of Tc-99m Mebrofenin, multiple anterior dynamic images of the abdomen along with numerous planar spot images of the abdomen were obtained up to 2 hours post injection. COMPARISON: No prior HIDA scans. FINDINGS: The liver is promptly visualized, demonstrates persistent homogeneous distribution of radionuclide. There is a visualization of the common bile duct and gastrointestinal activity within normal time. The gallbladder is not visualized up to 2 hours post injection. IMPRESSION: 1. Nonvisualization of the gallbladder up to 2 hours post injection. 2. No evidence of a common bile duct obstruction. 3. Persistent liver uptake along with a small size of the liver suggesting of an advanced parenchym al liver disease. RPTAT: HH .Nevaeh Durán MD, Date Time Electronically viewed and signed by .Nevaeh Durán MD, on 10/16/2016 09:40 .L/
[2016-10-16] MEDS ORDERED: PHYTONADIONE 5 MG in DEXTROSE 5% 50 ML IVPB ONE (13:00)
--- NOTE | 2016-10-16 15:34 | PN ---
Date/Time of Note Date/Time of Note DATE: 10/16/16 TIME: 15:33 Assessment/Plan VTE Prophylaxis VTE Prophylaxis Intervention: contraindicated VTE Contraindication Reason: blood coagulation disorder Lines/Catheters IV Catheter Type (from [facility]): Saline Lock Urinary Cath still in place: No Assessment/Plan Assessment/Plan 1. Abdominal pain- improving - Umbilical pain stable but still present - CT abdomen/pelvis showed reactive gallbladder wall thickening and edema with gallstones. US of gallbladder showed mild gallbladder wall thickening with no stones. Discuss with patient that this may be the cause of his pain and surgery may be needed for intervention. - HIDA showed nonvisible gallbladder - Dbil continues to trend downward. If starts to trend upward, will consider GI consult for assistance. Patient does have a GI physician at another facility - Patient has been afebrile, WBC nl, and tolerating PO diet without diarrhea 2. Large right pleural effusion - Will need US thoracentesis with pleural fluid studies once INR decreases. Another dose of Vit K given today and will check INR tmrw am. 3. Cdiff colitis - Continue on Flagyl day 3 and lactobacillus - Stool remains formed 4. Atypical chest pain - resolved 5. Hepatitis C- false positive 6. Chronic alcohol induced cirrhosis - stable - No encephalopathy appreciated - paracentesis PRN and last was 3 months ago but denies any infections, fevers - no acute abdomen appreciated 7. anemia secondary to liver cirrhosis - stable. will continue to monitor and transfuse if hgb <7 - MCV elevated but B12 and folate normal 8. h/o alcohol abuse - quit in February - Has GI specialist and said they are putting him on the transplant list. Subjective 24 Hr Interval Summary Free Text/Dictation Patient seen and examined. Currently stable and no acute overnight events. States eggs this morning upset stomach but no other acute issues. Denies nausea , vomiting, abdominal issues, chest pain, or shortness of breath. Exam/Review of Systems Vital Signs Vitals Vital Signs Date Time Temp Pulse Resp B/P Pulse Ox O2 Delivery O2 Flow Rate FiO2 10/16/16 12:42 90 10/16/16 12:38 98.2 19 107/59 97 10/13/16 12:42 21 Intake and Output 10/15/16 10/15/16 10/16/16 14:59 22:59 06:59 Intake Total 600 ml 500 ml Balance 600 ml 500 ml Exam General- NAD, awake and alert HEENT- scleral icterus b/l, EOM intact CVS- RRR, no murmurs Lungs- diminished breath sounds on right, crackles left base. no wheezes, equal chest rise Abd- soft, tender at umbilicus, nondistended, no fluid shift, no guarding or rebound. Ext- 2+ LE edema R>L, pulses appreciated in all extremities, no flapping tremors Skin- no caput medusa or telangiectasias Neuro- Answering questions appropriately Results Result Diagram: 10/16/16 0658 10/16/16 0658 Results 24 hrs Laboratory Tests Test 10/16/16 06:58 White Blood Count 7.7 Red Blood Count 2.50 L Hemoglobin 8.5 L Hematocrit 25.5 L Mean Corpuscular Volume 102.0 H Mean Corpuscular Hemoglobin 34.0 H Mean Corpuscular Hemoglobin Concent 33.3 Red Cell Distribution Width 19.7 H Platelet Count 66 L Mean Platelet Volume 10.2 Neutrophils % 56.7 Lymphocytes % 13.4 L Monocytes % 18.8 H Eosinophils % 5.1 Basophils % 0.5 Nucleated Red Blood Cells % 0.0 Neutrophils # (Manual) 4.4 Lymphocytes # 1.0 Monocytes # 1.5 H Eosinophils # 0.4 Basophils # 0.0 Nucleated Red Blood Cells # 0.0 Prothrombin Time 28.0 H Prothrombin Time Ratio 2.2 INR International Normalized Ratio 2.58 Sodium Level 134 L Potassium Level 4.8 Chloride Level 109 Carbon Dioxide Level 19 L Anion Gap 11 Blood Urea Nitrogen 18 Creatinine 0.94 Glucose Level 94 Calcium Level 8.3 L Magnesium Level 1.9 Total Bilirubin 4.9 H Direct Bilirubin 1.30 H Indirect Bilirubin 3.6 H Aspartate Amino Transf (AST/SGOT) 89 H Alanine Aminotransferase (ALT/SGPT) 50 Alkaline Phosphatase 210 H Total Protein 6.2 Albumin 2.0 L Globulin 4.20 H Albumin/Globulin Ratio 0.47 Medications Medications Current Medications Dextrose (D50w Syringe) 100 ml ONCE PRN IV POC BLOOD GLUCOSE <250 MG/DL Last administered on 10/12/16t 01:52; Admin Dose 100 ML; Start 10/12/16 at 01:30 Ondansetron HCl (Zofran Inj) 4 mg Q6H PRN IV NAUSEA AND/OR VOMITING; Start 10/12 at 04:00 Acetaminophen (Tylenol Tab) 650 mg Q6H PRN PO PAIN AND OR ELEVATED TEMP; Start 10/12/16 at 04:00 Morphine Sulfate (morphine) 2 mg Q4H PRN IV pain; Start 10/12/16 at 04:00 Famotidine (Pepcid) 20 mg DAILY PO Last administered on 10/16/16 09:20; Admin Dose 20 MG; Start 10/12/16 at 11:30 Levofloxacin (Levaquin) 500 mg DAILY@06 PO Last administered on 10/16/16 05:38 ; Admin Dose 500 MG; Start 10/14/16 at 06:00 Metronidazole (Flagyl) 500 mg Q8 PO Last administered on 10/16/16 13:17; Admin Dose 500 MG; Start 10/13/16 at 15:30 Lactobacillus Acidophilus/ Rhamnosus (Culturelle) 1 cap BID PO Last administered on 10/16/16 13:17; Admin Dose 1 CAP; Start 10/13/16 at 21:00 Zolpidem Tartrate (Ambien) 5 mg HS PRN PO INSOMNIA Last administered on 01:31; Admin Dose 5 MG; Start 10/14/16 at 18:00 POPEYE JULIEN MD Oct 16, 2016 15:34
[2016-10-16] MEDS: ZOLPIDEM 5 MG TAB PO PRN (23:39)
[2016-10-17] VITALS (12 sets, daily range): BP systolic 102–108; BP diastolic 55–59; PULSE 84–96; RESP 16–20
[2016-10-17] MEDS: metroNIDAZOLE 500 MG TAB PO SCH ×3 (06:03→21:41)
[2016-10-17] MEDS: LEVOFLOXACIN 500 MG TAB PO SCH (06:03)
[2016-10-17 07:51] LABS: ABNORMAL IP MESSAGE 1; HEMATOCRIT 24.8 % (42.0-52.0); HEMOGLOBIN 8.4 g/dl (14.0-18.0); MEAN CORPUSCULAR HEMOGLOBIN 34.4 pg (29.0-33.0); MEAN CORPUSCULAR HGB CONC 33.9 g/dl (32.0-37.0); MEAN CORPUSCULAR VOLUME 101.6 fl (82.0-101.0); MEAN PLATELET VOLUME 10.6 fl (7.4-10.4); PLATELET COUNT 69 10^3/UL (140-415); POSITIVE DIFF @See below; RED BLOOD COUNT 2.44 10^6/ul (4.70-6.10); RED CELL DISTRIBUTION WIDTH 19.6 % (11.5-14.5); WHITE BLOOD COUNT 8.7 10^3/ul (4.8-10.8)
[2016-10-17 08:09] LABS: INR 2.73; PROTIME 29.3 Sec (12.2-14.2); PT RATIO 2.3
[2016-10-17 08:15] LABS: ALBUMIN/GLOBULIN RATIO 0.48; BILIRUBIN,INDIRECT 4.3 mg/dl (0-1.1); BILIRUBIN,TOTAL 5.3 mg/dl (0.2-1.3); CALCIUM 8.4 mg/dl (8.4-10.2); CREATININE 1.02 mg/dl (0.61-1.24); MAGNESIUM 1.9 mg/dl (1.7-2.5); POTASSIUM 5.1 mmol/L (3.5-5.1); TOTAL PROTEIN 6.1 g/dl (6.1-8.1)
[2016-10-17 09:44] LABS: ANISOCYTOSIS 1+ (0-0); BURR CELLS 1+ (0-0); EOSINOPHILS % (M) 2 % (0-7); MONOCYTES % (M) 9 % (0-11); MYELOCYTES % (M) 2 % (0-0); PLATELET ESTIMATE DECREASED; POIKILOCYTOSIS 2+ (0-0); SPHEROCYTES 1+ (0-0)
[2016-10-17] MEDS: FAMOTIDINE 20 MG TAB PO SCH (09:50)
[2016-10-17] MEDS: LACTOBACILLUS RHAMNOSUS CAP PO SCH ×2 (09:50→21:41)
--- NOTE | 2016-10-17 17:28 | PN ---
Date/Time of Note Date/Time of Note DATE: 10/17/16 TIME: 17:23 Assessment/Plan VTE Prophylaxis VTE Prophylaxis Intervention: contraindicated VTE Contraindication Reason: blood coagulation disorder Lines/Catheters IV Catheter Type (from [facility]): Saline Lock Urinary Cath still in place: No Assessment/Plan Assessment/Plan 1. Large right pleural effusion - Will need US thoracentesis with pleural fluid studies once INR decreases. Another dose of Vit K given today and will check INR tmrw am. 2. ?acute cholecystitis - CT abdomen/pelvis showed reactive gallbladder wall thickening and edema with gallstones. US of gallbladder showed mild gallbladder wall thickening with no stones. Discuss with patient that this may be the cause of his pain and surgery may be needed for intervention. - HIDA showed nonvisible gallbladder - Dbil continues to trend downward. If starts to trend upward, will consider GI consult for assistance. Patient does have a GI physician at another facility - Patient has been afebrile, WBC nl, and tolerating PO diet without diarrhea 3. Cdiff colitis - Continue on Flagyl day 4 and lactobacillus - Stool remains formed 4. Chronic alcohol induced cirrhosis - stable - No encephalopathy appreciated - paracentesis PRN and last was 3 months ago but denies any infections, fevers - no acute abdomen appreciated - LFT continue to trend downward 7. anemia secondary to liver cirrhosis - stable. will continue to monitor and transfuse if hgb <7 - MCV elevated but B12 and folate normal 8. h/o alcohol abuse - quit in February - Has GI specialist and said they are putting him on the transplant list. 9. PT/OT Subjective 24 Hr Interval Summary Free Text/Dictation Patient resting comfortably. Anxious to get thoracentesis but explained that his INR is too elevated to have procedure performed. Still experiencing pain at umbilicus but only with palpation. No signs of any abnormalities. Exam/Review of Systems Vital Signs Vitals Vital Signs Date Time Temp Pulse Resp B/P Pulse Ox O2 Delivery O2 Flow Rate FiO2 10/17/16 16:35 95 10/17/16 15:30 98.3 20 102/55 98 10/13/16 12:42 21 Intake and Output 10/16/16 10/16/16 10/17/16 15:00 23:00 07:00 Intake Total 600 ml Balance 600 ml Exam General- NAD, awake and alert HEENT- scleral icterus b/l, EOM intact CVS- RRR, no murmurs Lungs- diminished breath sounds on right, crackles left base. no wheezes, equal chest rise Abd- soft, tender at umbilicus with palpation, nondistended, no fluid shift, no guarding or rebound. Ext- 2+ LE edema R>L, pulses appreciated in all extremities, no flapping tremors Skin- no caput medusa or telangiectasias Results Result Diagram: 10/17/16 0713 10/17/16 0713 Results 24 hrs Laboratory Tests Test 10/17/16 07:13 White Blood Count 8.7 Red Blood Count 2.44 L Hemoglobin 8.4 L Hematocrit 24.8 L Mean Corpuscular Volume 101.6 H Mean Corpuscular Hemoglobin 34.4 H Mean Corpuscular Hemoglobin Concent 33.9 Red Cell Distribution Width 19.6 H Platelet Count 69 L Mean Platelet Volume 10.6 H Neutrophils % Segmented Neutrophils % (Manual) 9 L Lymphocytes % Lymphocytes % (Manual) 79 H Monocytes % Monocytes % (Manual) 9 Eosinophils % Eosinophils % (Manual) 2 Basophils % Myelocytes % (Manual) 2 H Nucleated Red Blood Cells % 0.0 Neutrophils # (Manual) Absolute Lymphocytes (Manual) 6.8 H Lymphocytes # Monocytes # Absolute Monocytes (Manual) 0.7 Eosinophils # Basophils # Myelocytes # 0.1 H Nucleated Red Blood Cells # Platelet Estimate DECREASED Poikilocytosis 2+ Anisocytosis 1+ Macrocytosis 2+ Spherocytes 1+ Prothrombin Time 29.3 H Prothrombin Time Ratio 2.3 INR International Normalized Ratio 2.73 Sodium Level 130 L Potassium Level 5.1 Chloride Level 108 Carbon Dioxide Level 19 L Anion Gap 8 Blood Urea Nitrogen 22 H Creatinine 1.02 Glucose Level 67 #L Calcium Level 8.4 Magnesium Level 1.9 Total Bilirubin 5.3 H Direct Bilirubin 1.00 H Indirect Bilirubin 4.3 H Aspartate Amino Transf (AST/SGOT) 90 H Alanine Aminotransferase (ALT/SGPT) 51 Alkaline Phosphatase 199 H Total Protein 6.1 Albumin 2.0 L Globulin 4.10 H Albumin/Globulin Ratio 0.48 Medications Medications Current Medications Dextrose (D50w Syringe) 100 ml ONCE PRN IV POC BLOOD GLUCOSE <250 MG/DL Last administered on 10/12/16t 01:52; Admin Dose 100 ML; Start 10/12/16 at 01:30 Ondansetron HCl (Zofran Inj) 4 mg Q6H PRN IV NAUSEA AND/OR VOMITING; Start 10/12 at 04:00 Acetaminophen (Tylenol Tab) 650 mg Q6H PRN PO PAIN AND OR ELEVATED TEMP; Start 10/12/16 at 04:00 Morphine Sulfate (morphine) 2 mg Q4H PRN IV pain; Start 10/12/16 at 04:00 Famotidine (Pepcid) 20 mg DAILY PO Last administered on 10/17/16 09:50; Admin Dose 20 MG; Start 10/12/16 at 11:30 Levofloxacin (Levaquin) 500 mg DAILY@06 PO Last administered on 10/17/16 06:03 ; Admin Dose 500 MG; Start 10/14/16 at 06:00 Metronidazole (Flagyl) 500 mg Q8 PO Last administered on 10/17/16 13:31; Admin Dose 500 MG; Start 10/13/16 at 15:30 Lactobacillus Acidophilus/ Rhamnosus (Culturelle) 1 cap BID PO Last administered on 10/17/16 09:50; Admin Dose 1 CAP; Start 10/13/16 at 21:00 Zolpidem Tartrate 5 mg 5 mg HS PRN PO INSOMNIA Last administered on 10/16/16 23 :39; Admin Dose 5 MG; Start 10/14/16 at 18:00 Phytonadione/ Dextrose (Vitamin K/D5W) 51 ml @ 102 mls/hr ONCE ONCE IVPB ; Start 10/17/16 at 17:30; Stop 10/17/16 at 17:59 POPEYE JULIEN MD Oct 17, 2016 17:28
[2016-10-17] MEDS ORDERED: PHYTONADIONE 10 MG in DEXTROSE 5% 50 ML IVPB ONE (17:30)
[2016-10-17] MEDS: ZOLPIDEM 5 MG TAB PO PRN (23:51)
[2016-10-18] VITALS (12 sets, daily range): BP systolic 98–111; BP diastolic 55–63; PULSE 84–102; RESP 16–20
[2016-10-18] MEDS: metroNIDAZOLE 500 MG TAB PO SCH ×3 (05:07→21:01)
[2016-10-18] MEDS: LEVOFLOXACIN 500 MG TAB PO SCH (05:08)
[2016-10-18 08:03] LABS: ABNORMAL IP MESSAGE 1; BASOPHIL # 0.1 10^3/ul (0.0-0.1); BASOPHILS % 0.6 % (0.0-2.0); EOSINOPHILS # 0.5 10^3/ul (0.0-0.5); EOSINOPHILS % 5.4 % (0.0-7.0); HEMATOCRIT 23.3 % (42.0-52.0); LYMPHOCYTES # 1.1 10^3/ul (0.8-2.9); LYMPHOCYTES % 12.9 % (15.0-51.0); MEAN CORPUSCULAR HEMOGLOBIN 34.9 pg (29.0-33.0); MEAN CORPUSCULAR HGB CONC 34.3 g/dl (32.0-37.0); MEAN CORPUSCULAR VOLUME 101.7 fl (82.0-101.0); MEAN PLATELET VOLUME 9.8 fl (7.4-10.4); MONOCYTE # 1.8 10^3/ul (0.3-0.9); MONOCYTES % 20.6 % (0.0-11.0); NEUTROPHILS % 51.1 % (39.0-77.0); POSITIVE DIFF @See below; RED BLOOD COUNT 2.29 10^6/ul (4.70-6.10); RED CELL DISTRIBUTION WIDTH 19.6 % (11.5-14.5); WHITE BLOOD COUNT 8.7 10^3/ul (4.8-10.8)
[2016-10-18 08:20] LABS: PLATELET COUNT 66 10^3/UL (140-415)
[2016-10-18 08:23] LABS: INR 2.94; PROTIME 31.1 Sec (12.2-14.2); PT RATIO 2.4
[2016-10-18 08:45] LABS: ALBUMIN/GLOBULIN RATIO 0.47; BILIRUBIN,DIRECT 1.2 mg/dl (0.00-0.20); BILIRUBIN,INDIRECT 4.7 mg/dl (0-1.1); BILIRUBIN,TOTAL 5.9 mg/dl (0.2-1.3); CALCIUM 8.2 mg/dl (8.4-10.2); CREATININE 1.11 mg/dl (0.61-1.24); POTASSIUM 5.2 mmol/L (3.5-5.1); TOTAL PROTEIN 6.2 g/dl (6.1-8.1)
[2016-10-18] MEDS: LACTOBACILLUS RHAMNOSUS CAP PO SCH ×2 (09:29→20:00)
[2016-10-18] MEDS: FAMOTIDINE 20 MG TAB PO SCH (09:29)
[2016-10-18] MEDS: FUROSEMIDE 40 MG TAB PO SCH (13:33)
--- NOTE | 2016-10-18 17:44 | PN ---
Date/Time of Note Date/Time of Note DATE: 10/18/16 TIME: 17:40 Assessment/Plan VTE Prophylaxis VTE Prophylaxis Intervention: contraindicated VTE Contraindication Reason: bleeding Lines/Catheters IV Catheter Type (from [facility]): Saline Lock Urinary Cath still in place: No Assessment/Plan Assessment/Plan 1. Large right pleural effusion - Will need US thoracentesis with pleural fluid studies once INR decreases. Another dose of Vit K given today and will check INR tmrw am. - Restarting patients lasix to help with diuresis 2. ?acute cholecystitis - CT abdomen/pelvis showed reactive gallbladder wall thickening and edema with gallstones. US of gallbladder showed mild gallbladder wall thickening with no stones. - HIDA showed nonvisible gallbladder - Dbil continues to fluctuate. - Patient has been afebrile, WBC nl, and tolerating PO diet without diarrhea 3. Cdiff colitis - Continue on Flagyl day 5 and lactobacillus - Stool remains formed 4. Chronic alcohol induced cirrhosis - stable - No encephalopathy appreciated - paracentesis PRN and last was 3 months ago but denies any infections, fevers - no acute abdomen appreciated - LFT continue to trend downward 7. anemia secondary to liver cirrhosis - stable. will continue to monitor and transfuse if hgb <7 - MCV elevated but B12 and folate normal 8. h/o alcohol abuse - quit in February - Has GI specialist and said they are putting him on the transplant list. Subjective 24 Hr Interval Summary Free Text/Dictation Patient seen and examined. Still experiencing umbilical pain but no hernia appreciated. Denies any issues with passing BM. No acute overnight events. Exam/Review of Systems Vital Signs Vitals Vital Signs Date Time Temp Pulse Resp B/P Pulse Ox O2 Delivery O2 Flow Rate FiO2 10/18/16 16:18 84 10/18/16 15:36 98.4 20 108/60 97 Intake and Output 10/17/16 10/17/16 10/18/16 15:00 23:00 07:00 Intake Total 960 ml 600 ml Balance 960 ml 600 ml Exam General- NAD, awake and alert HEENT- scleral icterus b/l, EOM intact CVS- RRR, no murmurs Lungs- diminished breath sounds on right, crackles left base. no wheezes, equal chest rise Abd- soft, tender at umbilicus with palpation, nondistended, no fluid shift, no guarding or rebound. Ext- 2+ LE edema, pulses appreciated in all extremities, no flapping tremors Skin- no caput medusa or telangiectasias Results Result Diagram: 10/18/16 0657 10/18/16 0657 Results 24 hrs Laboratory Tests Test 10/18/16 06:57 White Blood Count 8.7 Red Blood Count 2.29 L Hemoglobin 8.0 L Hematocrit 23.3 L Mean Corpuscular Volume 101.7 H Mean Corpuscular Hemoglobin 34.9 H Mean Corpuscular Hemoglobin Concent 34.3 Red Cell Distribution Width 19.6 H Platelet Count 66 L Mean Platelet Volume 9.8 Neutrophils % 51.1 Lymphocytes % 12.9 L Monocytes % 20.6 H Eosinophils % 5.4 Basophils % 0.6 Nucleated Red Blood Cells % 0.0 Neutrophils # (Manual) 4.4 Lymphocytes # 1.1 Monocytes # 1.8 H Eosinophils # 0.5 Basophils # 0.1 Nucleated Red Blood Cells # 0.0 Prothrombin Time 31.1 H Prothrombin Time Ratio 2.4 INR International Normalized Ratio 2.94 Sodium Level 130 L Potassium Level 5.2 H Chloride Level 107 Carbon Dioxide Level 17 L Anion Gap 11 Blood Urea Nitrogen 25 H Creatinine 1.11 Glucose Level 107 # Calcium Level 8.2 L Magnesium Level 2.0 Total Bilirubin 5.9 H Direct Bilirubin 1.20 H Indirect Bilirubin 4.7 H Aspartate Amino Transf (AST/SGOT) 88 H Alanine Aminotransferase (ALT/SGPT) 51 Alkaline Phosphatase 172 H Total Protein 6.2 Albumin 2.0 L Globulin 4.20 H Albumin/Globulin Ratio 0.47 Medications Medications Current Medications Dextrose (D50w Syringe) 100 ml ONCE PRN IV POC BLOOD GLUCOSE <250 MG/DL Last administered on 10/12/16 01:52; Admin Dose 100 ML; Start 10/12/16 at 01:30 Ondansetron HCl (Zofran Inj) 4 mg Q6H PRN IV NAUSEA AND/OR VOMITING; Start 10/12 at 04:00 Acetaminophen (Tylenol Tab) 650 mg Q6H PRN PO PAIN AND OR ELEVATED TEMP; Start 10/12/16 at 04:00 Morphine Sulfate (morphine) 2 mg Q4H PRN IV pain; Start 10/12/16 at 04:00 Famotidine (Pepcid) 20 mg DAILY PO Last administered on 10/18/16 09:29; Admin Dose 20 MG; Start 10/12/16 at 11:30 Levofloxacin (Levaquin) 500 mg DAILY@06 PO Last administered on 10/18/16 05:08 ; Admin Dose 500 MG; Start 10/14/16 at 06:00 Metronidazole (Flagyl) 500 mg Q8 PO Last administered on 10/18/16 13:33; Admin Dose 500 MG; Start 10/13/16 at 15:30 Lactobacillus Acidophilus/ Rhamnosus (Culturelle) 1 cap BID PO Last administered on 10/18/16 09:29; Admin Dose 1 CAP; Start 10/13/16 at 21:00 Zolpidem Tartrate (Ambien) 5 mg HS PRN PO INSOMNIA Last administered on 23:51; Admin Dose 5 MG; Start 10/14/16 at 18:00 Furosemide (Lasix) 40 mg DAILY@06 PO Last administered on 10/18/16 13:33; Admin Dose 40 MG; Start 10/18/16 at 13:00 POPEYE JULIEN MD Oct 18, 2016 17:44
[2016-10-18] MEDS ORDERED: PHYTONADIONE 10 MG in DEXTROSE 5% 50 ML IVPB ONE (19:00)
[2016-10-18] MEDS: ZOLPIDEM 5 MG TAB PO PRN (22:29)
[2016-10-19] VITALS (13 sets, daily range): BP systolic 102–118; BP diastolic 50–97; PULSE 89–97; RESP 16–18
[2016-10-19] MEDS: metroNIDAZOLE 500 MG TAB PO SCH ×3 (05:13→21:00)
[2016-10-19] MEDS: LEVOFLOXACIN 500 MG TAB PO SCH (05:13)
[2016-10-19] MEDS: FUROSEMIDE 40 MG TAB PO SCH (05:13)
[2016-10-19 08:25] LABS: ABNORMAL IP MESSAGE 1; HEMATOCRIT 23.9 % (42.0-52.0); HEMOGLOBIN 8.3 g/dl (14.0-18.0); MEAN CORPUSCULAR HEMOGLOBIN 35.9 pg (29.0-33.0); MEAN CORPUSCULAR HGB CONC 34.7 g/dl (32.0-37.0); MEAN CORPUSCULAR VOLUME 103.5 fl (82.0-101.0); MEAN PLATELET VOLUME 9.7 fl (7.4-10.4); PLATELET COUNT 57 10^3/UL (140-415); POSITIVE DIFF @See below; RED BLOOD COUNT 2.31 10^6/ul (4.70-6.10); RED CELL DISTRIBUTION WIDTH 19.7 % (11.5-14.5); WHITE BLOOD COUNT 7.1 10^3/ul (4.8-10.8)
[2016-10-19] MEDS: LACTOBACILLUS RHAMNOSUS CAP PO SCH ×2 (08:26→21:00)
[2016-10-19] MEDS: FAMOTIDINE 20 MG TAB PO SCH (08:26)
[2016-10-19 08:44] LABS: ALBUMIN 2.2 g/dl (3.3-4.9); ALBUMIN/GLOBULIN RATIO 0.5; BILIRUBIN,DIRECT 1.4 mg/dl (0.00-0.20); BILIRUBIN,INDIRECT 4.9 mg/dl (0-1.1); BILIRUBIN,TOTAL 6.3 mg/dl (0.2-1.3); CALCIUM 8.6 mg/dl (8.4-10.2); CREATININE 1.27 mg/dl (0.61-1.24); MAGNESIUM 1.9 mg/dl (1.7-2.5); POTASSIUM 4.8 mmol/L (3.5-5.1); TOTAL PROTEIN 6.6 g/dl (6.1-8.1)
[2016-10-19 08:46] LABS: INR 2.74; PROTIME 29.4 Sec (12.2-14.2); PT RATIO 2.3
[2016-10-19 10:07] LABS: ANISOCYTOSIS 3+ (0-0); BURR CELLS 3+ (0-0); EOSINOPHILS % (M) 2 % (0-7); METAMYELOCYTES %M 4 % (0-0); MICROCYTOSIS 1+ (0-0); MONOCYTES % (M) 34 % (0-11); MYELOCYTES % (M) 1 % (0-0); PLATELET ESTIMATE SIG DECREASED; POIKILOCYTOSIS 3+ (0-0); POLYCHROMASIA 1+ (0-0)
--- NOTE | 2016-10-19 13:06 | CONS ---
Date/Time of Note Date/Time of Note DATE: 10/19/16 TIME: 12:52 Assessment/Plan Assessment/Plan Additional Assessment/Plan Assessment * Sepsis * Pleural effusion managed pulmonary * End stage liver disease * Cirrhosis liver * H/O alcoholism * C difficile colitis Plan * continue present management * EGD on Friday to evaluate any varices risk and benefit explained to patient and agreed with the planned procedure * further orders will depend on clinical course * case discussed with Dr Sandhu Consultation Date/Type/Reason Admit Date/Time Oct 12, 2016 at 01:24 Date of Consultation: Oct 19, 2016 Type of Consultation: Gastroenterology Reason for Consultation Cirrhosis Referring Provider: POPEYE JULIEN MD Hx of Present Illness 60 year old male who was referred for evaluation of liver cirrhosis.Patient was admitted because of sepsis and large pleural effusion.Past medical history includes hypertension and liver cirrhosis.Patient claims under the care of gastroenterology at [facility] and has been taking spironolactone and Lasix.Patient denies any history of paracentesis.last EGD was 6 months ago results unknown.Patient had been alcoholic in the past but presently stopped drinking alcohol,Patient denies any episode of hematemesis nor hematochezia nor any episode of jaundice.Serological workup for hepatitis A, B,C were negative however CT abdomen revealed 1. Very large right pleural effusion with adjacent atelectasis. 2. Severe, advanced, end-stage cirrhosis of the liver. 3. Scattered mesenteric edema throughout the abdominal pelvic cavity. 4. Sigmoid diverticulosis, without evidence for diverticulitis. 5. Scattered benign chronic age-related senescent changes. 6. Reactive gallbladder wall thickening and edema with gallstones. 7. Significant third spacing and edema throughout the body. Presently no evidenced of bleeding,nor changes of sensorium History is taken with the aid of histology supervisor #[id number] Constitutional: improved, no complaints Eyes: no complaints ENT: no complaints Respiratory: cough, pain Cardiovascular: no complaints Gastrointestinal: no complaints Genitourinary: no complaints Musculoskeletal: no complaints Skin: no complaints Neurologic: no complaints Endocrine: no complaints Lymphatic: no complaints Psychological: nl mood/affect, no complaints Immunologic: no complaints Past Medical History Medical History: hypertension, other (Liver cirrhosis) Past Surgical History Past Surgical Hx: endoscopy Social History Smoking Status: Never smoker Drug Use: none Exam/Review of Systems Vital Signs Vitals Vital Signs Date Time Temp Pulse Resp B/P Pulse Ox O2 Delivery O2 Flow Rate FiO2 10/19/16 12:23 93 10/19/16 12:17 98.0 18 118/67 98 10/19/16 08:00 Room Air Intake and Output 10/18/16 10/18/16 10/19/16 15:00 23:00 07:00 Intake Total 720 ml 750 ml Output Total 950 ml Balance 720 ml -200 ml Exam Constitutional: alert, oriented, well developed Psych: nl mood/affect, no complaints Head: atraumatic, normocephalic Eyes: EOMI, PERRL, nl conjunctiva, nl lids, nl sclera ENMT: nl external ears & nose, nl lips & teeth, nl nasal mucosa & septum Neck: non-tender, supple Respiratory: clear to auscultation, normal air movement Cardiovascular: nl pulses, regular rate and rhythm Gastrointestinal: nl liver, spleen, non-tender, soft Musculoskeletal: nl extremities to inspection, nl gait and stance Extremities: normal pulses Neurological: REGISTERED DENTAL ASSISTANT RDA II-XII intact, nl mental status, nl speech, nl strength Skin: nl turgor, No rash or lesions Lymph: nl lymph nodes Results Result Diagram: 10/19/16 0732 10/19/16 0732 Results 24 hrs Laboratory Tests Test 10/19/16 07:32 White Blood Count 7.1 Red Blood Count 2.31 L Hemoglobin 8.3 L Hematocrit 23.9 L Mean Corpuscular Volume 103.5 H Mean Corpuscular Hemoglobin 35.9 H Mean Corpuscular Hemoglobin Concent 34.7 Red Cell Distribution Width 19.7 H Platelet Count 57 L Mean Platelet Volume 9.7 Neutrophils % Segmented Neutrophils % (Manual) 16 L Band Neutrophils % (Manual) 1 Lymphocytes % Lymphocytes % (Manual) 42 Monocytes % Monocytes % (Manual) 34 H Eosinophils % Eosinophils % (Manual) 2 Basophils % Metamyelocytes % (manual) 4 H Myelocytes % (Manual) 1 H Nucleated Red Blood Cells % 0.0 Neutrophils # (Manual) 1.1 L Band Neutrophils # 0.0 Absolute Lymphocytes (Manual) 2.9 Lymphocytes # Monocytes # Absolute Monocytes (Manual) 2.4 H Eosinophils # Basophils # Metamyelocytes # 0.2 H Myelocytes # 0.0 Nucleated Red Blood Cells # Platelet Estimate SIG DECREASED Polychromasia 1+ Poikilocytosis 3+ Anisocytosis 3+ Microcytosis 1+ Macrocytosis 2+ Prothrombin Time 29.4 H Prothrombin Time Ratio 2.3 INR International Normalized Ratio 2.74 Sodium Level 131 L Potassium Level 4.8 Chloride Level 106 Carbon Dioxide Level 18 L Anion Gap 12 Blood Urea Nitrogen 25 H Creatinine 1.27 H Glucose Level 71 Calcium Level 8.6 Magnesium Level 1.9 Total Bilirubin 6.3 H Direct Bilirubin 1.40 H Indirect Bilirubin 4.9 H Aspartate Amino Transf (AST/SGOT) 103 H Alanine Aminotransferase (ALT/SGPT) 47 Alkaline Phosphatase 186 H Total Protein 6.6 Albumin 2.2 L Globulin 4.40 H Albumin/Globulin Ratio 0.50 Medications Medications Current Medications Dextrose (D50w Syringe) 100 ml ONCE PRN IV POC BLOOD GLUCOSE <250 MG/DL Last administered on 10/12/16 01:52; Admin Dose 100 ML; Start 10/12/16 at 01:30 Ondansetron HCl (Zofran Inj) 4 mg Q6H PRN IV NAUSEA AND/OR VOMITING; Start 10/12 at 04:00 Acetaminophen (Tylenol Tab) 650 mg Q6H PRN PO PAIN AND OR ELEVATED TEMP; Start 10/12/16 at 04:00 Morphine Sulfate (morphine) 2 mg Q4H PRN IV pain; Start 10/12/16 at 04:00 Famotidine (Pepcid) 20 mg DAILY PO Last administered on 10/19/16 08:26; Admin Dose 20 MG; Start 10/12/16 at 11:30 Levofloxacin (Levaquin) 500 mg DAILY@06 PO Last administered on 10/19/16 05:13 ; Admin Dose 500 MG; Start 10/14/16 at 06:00 Metronidazole (Flagyl) 500 mg Q8 PO Last administered on 10/19/16 05:13; Admin Dose 500 MG; Start 10/13/16 at 15:30 Lactobacillus Acidophilus/ Rhamnosus (Culturelle) 1 cap BID PO Last administered on 10/19/16 08:26; Admin Dose 1 CAP; Start 10/13/16 at 21:00 Zolpidem Tartrate (Ambien) 5 mg HS PRN PO INSOMNIA Last administered on 22:29; Admin Dose 5 MG; Start 10/14/16 at 18:00 Furosemide (Lasix) 40 mg DAILY@06 PO Last administered on 9/9/17at 05:13; Admin Dose 40 MG; Start 10/18/16 at 13:00 LYDIA BARBOSA NP Oct 19, 2016 13:03
--- NOTE | 2016-10-19 14:01 | PN ---
Date/Time of Note Date/Time of Note DATE: 10/19/16 TIME: 13:53 Assessment/Plan VTE Prophylaxis VTE Prophylaxis Intervention: contraindicated VTE Contraindication Reason: blood coagulation disorder Lines/Catheters IV C[facility] Type (from [facility]): Saline Lock Urinary Cath still in place: No Assessment/Plan Assessment/Plan 1. Large right pleural effusion - INR is still elevated despite giving Vit K daily. Will continue Vit K doses and monitor INR. When <1.5 will ask IR to perform US thoracentesis with pleural fluid studies - On Lasix 2. Alcohol induced cirrhosis - GI consulted and appreciated recommendations. Will continue current medication and plan for EGD on Friday in am. Will keep NPO after midnight tmrw. - No encephalopathy appreciated - paracentesis PRN and last was 3 months ago but denies any infections, fevers - no acute abdomen appreciated 3. Cdiff colitis - Continue on Flagyl day 6 and lactobacillus - Stool remains formed 4. anemia secondary to liver cirrhosis - stable. will continue to monitor and transfuse if hgb <7 - MCV elevated but B12 and folate normal 5. h/o alcohol abuse - quit in February - Has GI specialist and said they are putting him on the transplant list. 6. ?acute cholecystitis - CT abdomen/pelvis showed reactive gallbladder wall thickening and edema with gallstones. US of gallbladder showed mild gallbladder wall thickening with no stones. - HIDA showed nonvisible gallbladder - Dbil continues to fluctuate. - Patient has been afebrile, WBC nl, and tolerating PO diet without diarrhea 7. PT/OT - once stable will arrange for home with home health and PT Subjective 24 Hr Interval Summary Free Text/Dictation Patient states he is feeling better but still experiencing SOB with ambulation and pain at umbilicus. Denies any new acute issues or overnight events. Discussed if he would be willing to go to SNF for further rehab but would like to think about it. Hes concerned he is missing his appts at [facility] for transplant evaluation. Exam/Review of Systems Vital Signs Vitals Vital Signs Date Time Temp Pulse Resp B/P Pulse Ox O2 Delivery O2 Flow Rate FiO2 10/19/16 12:23 93 10/19/16 12:17 98.0 18 118/67 98 10/19/16 08:00 Room Air Intake and Output 10/18/16 10/18/16 10/19/16 15:00 23:00 07:00 Intake Total 720 ml 750 ml Output Total 950 ml Balance 720 ml -200 ml Exam General- NAD, awake and alert HEENT- scleral icterus b/l, EOM intact CVS- RRR, no murmurs Lungs- diminished breath sounds on right, crackles left base. no wheezes, equal chest rise Abd- soft, mildly tender at umbilicus with palpation, nondistended, no fluid shift, no guarding or rebound. Ext- 2+ LE edema, pulses appreciated in all extremities, no flapping tremors Skin- no caput medusa or telangiectasias Results Result Diagram: 10/19/16 0732 10/19/16 0732 Results 24 hrs Laboratory Tests Test 10/19/16 07:32 White Blood Count 7.1 Red Blood Count 2.31 L Hemoglobin 8.3 L Hematocrit 23.9 L Mean Corpuscular Volume 103.5 H Mean Corpuscular Hemoglobin 35.9 H Mean Corpuscular Hemoglobin Concent 34.7 Red Cell Distribution Width 19.7 H Platelet Count 57 L Mean Platelet Volume 9.7 Neutrophils % Segmented Neutrophils % (Manual) 16 L Band Neutrophils % (Manual) 1 Lymphocytes % Lymphocytes % (Manual) 42 Monocytes % Monocytes % (Manual) 34 H Eosinophils % Eosinophils % (Manual) 2 Basophils % Metamyelocytes % (manual) 4 H Myelocytes % (Manual) 1 H Nucleated Red Blood Cells % 0.0 Neutrophils # (Manual) 1.1 L Band Neutrophils # 0.0 Absolute Lymphocytes (Manual) 2.9 Lymphocytes # Monocytes # Absolute Monocytes (Manual) 2.4 H Eosinophils # Basophils # Metamyelocytes # 0.2 H Myelocytes # 0.0 Nucleated Red Blood Cells # Platelet Estimate SIG DECREASED Polychromasia 1+ Poikilocytosis 3+ Anisocytosis 3+ Microcytosis 1+ Macrocytosis 2+ Prothrombin Time 29.4 H Prothrombin Time Ratio 2.3 INR International Normalized Ratio 2.74 Sodium Level 131 L Potassium Level 4.8 Chloride Level 106 Carbon Dioxide Level 18 L Anion Gap 12 Blood Urea Nitrogen 25 H Creatinine 1.27 H Glucose Level 71 Calcium Level 8.6 Magnesium Level 1.9 Total Bilirubin 6.3 H Direct Bilirubin 1.40 H Indirect Bilirubin 4.9 H Aspartate Amino Transf (AST/SGOT) 103 H Alanine Aminotransferase (ALT/SGPT) 47 Alkaline Phosphatase 186 H Total Protein 6.6 Albumin 2.2 L Globulin 4.40 H Albumin/Globulin Ratio 0.50 Medications Medications Current Medications Dextrose (D50w Syringe) 100 ml ONCE PRN IV POC BLOOD GLUCOSE <250 MG/DL Last administered on 10/12/16 01:52; Admin Dose 100 ML; Start 10/12/16 at 01:30 Ondansetron HCl (Zofran Inj) 4 mg Q6H PRN IV NAUSEA AND/OR VOMITING; Start 10/12 at 04:00 Acetaminophen (Tylenol Tab) 650 mg Q6H PRN PO PAIN AND OR ELEVATED TEMP; Start 10/12/16 at 04:00 Morphine Sulfate (morphine) 2 mg Q4H PRN IV pain; Start 10/12/16 at 04:00 Famotidine (Pepcid) 20 mg DAILY PO Last administered on 10/19/16 08:26; Admin Dose 20 MG; Start 10/12/16 at 11:30 Levofloxacin (Levaquin) 500 mg DAILY@06 PO Last administered on 10/19/16 05:13 ; Admin Dose 500 MG; Start 10/14/16 at 06:00 Metronidazole (Flagyl) 500 mg Q8 PO Last administered on 10/19/16 13:46; Admin Dose 500 MG; Start 10/13/16 at 15:30 Lactobacillus Acidophilus/ Rhamnosus (Culturelle) 1 cap BID PO Last administered on 10/19/16 08:26; Admin Dose 1 CAP; Start 10/13/16 at 21:00 Zolpidem Tartrate (Ambien) 5 mg HS PRN PO INSOMNIA Last administered on 22:29; Admin Dose 5 MG; Start 10/14/16 at 18:00 Furosemide (Lasix) 40 mg DAILY@06 PO Last administered on 10/19/16 05:13; Admin Dose 40 MG; Start 10/18/16 at 13:00 POPEYE JULIEN MD Oct 19, 2016 14:01
[2016-10-19] MEDS ORDERED: PHYTONADIONE 10 MG in DEXTROSE 5% 50 ML IVPB ONE (16:00)
[2016-10-20] VITALS (13 sets, daily range): BP systolic 107–129; BP diastolic 57–69; PULSE 91–107; RESP 17–20
[2016-10-20] MEDS: ZOLPIDEM 5 MG TAB PO PRN ×2 (00:01→21:28)
[2016-10-20] MEDS: FUROSEMIDE 40 MG TAB PO SCH (05:11)
[2016-10-20] MEDS: LEVOFLOXACIN 500 MG TAB PO SCH (05:11)
[2016-10-20] MEDS: metroNIDAZOLE 500 MG TAB PO SCH ×3 (05:11→21:23)
[2016-10-20 07:42] LABS: ABNORMAL IP MESSAGE 1; HEMATOCRIT 22.9 % (42.0-52.0); HEMOGLOBIN 7.6 g/dl (14.0-18.0); MEAN CORPUSCULAR HEMOGLOBIN 34.1 pg (29.0-33.0); MEAN CORPUSCULAR HGB CONC 33.2 g/dl (32.0-37.0); MEAN CORPUSCULAR VOLUME 102.7 fl (82.0-101.0); MEAN PLATELET VOLUME 9.8 fl (7.4-10.4); NUCLEATED RED BLOOD CELLS% 0.3 /100WBC (0.0-0.0); PLATELET COUNT 58 10^3/UL (140-415); RED BLOOD COUNT 2.23 10^6/ul (4.70-6.10); RED CELL DISTRIBUTION WIDTH 19.9 % (11.5-14.5); WHITE BLOOD COUNT 7.2 10^3/ul (4.8-10.8)
[2016-10-20] MEDS: LACTOBACILLUS RHAMNOSUS CAP PO SCH ×2 (08:02→20:34)
[2016-10-20] MEDS: FAMOTIDINE 20 MG TAB PO SCH (08:02)
[2016-10-20 08:10] LABS: INR 2.73; PROTIME 29.3 Sec (12.2-14.2); PT RATIO 2.3
[2016-10-20 08:19] LABS: ALBUMIN 2.1 g/dl (3.3-4.9); ALBUMIN/GLOBULIN RATIO 0.48; BILIRUBIN,DIRECT 1.6 mg/dl (0.00-0.20); BILIRUBIN,INDIRECT 4.4 mg/dl (0-1.1); CALCIUM 8.5 mg/dl (8.4-10.2); CREATININE 1.15 mg/dl (0.61-1.24); POTASSIUM 4.4 mmol/L (3.5-5.1); TOTAL PROTEIN 6.4 g/dl (6.1-8.1)
[2016-10-20 09:54] LABS: EOSINOPHILS # 0.4 10^3/ul (0.0-0.5); EOSINOPHILS % (M) 6 % (0.0-7.0); LYMPHOCYTES # 0.7 10^3/ul (0.8-2.9); MONOCYTE # 1.5 10^3/ul (0.3-0.9); MONOCYTES % (M) 21 % (0-11); MYELOCYTES % (M) 2 % (0-0)
[2016-10-20 09:55] LABS: ANISOCYTOSIS 2+ (0-0); BURR CELLS MODERATE; POIKILOCYTOSIS 1+ (0-0)
[2016-10-20 09:56] LABS: POLYCHROMASIA 1+ (0-0)
[2016-10-20] MEDS ORDERED: PHYTONADIONE 10 MG in DEXTROSE 5% 50 ML IVPB ONE (12:00)
--- NOTE | 2016-10-20 13:40 | PN ---
Date/Time of Note Date/Time of Note DATE: 10/20/16 TIME: 13:35 Assessment/Plan VTE Prophylaxis VTE Prophylaxis Intervention: SCD's Lines/Catheters IV Catheter Type (from [facility]): Saline Lock Urinary Cath still in place: No Assessment/Plan Chief Complaint/Hosp Course Problems: Assessment/Plan Assessment * Anemia Acute vs chronic anemia R/O bleeding esophageal varices vs bleeding peptic ulcer disease * Sepsis Improving * Pleural effusion managed pulmonary * End stage liver disease * Cirrhosis liver * H/O alcoholism * C difficile colitis Plan * continue present management * EGD on Friday to evaluate any varices risk and benefit explained to patient and agreed with the planned procedure * repeat hemoglobin and hematocrit * PPI bid * further orders will depend on clinical course * case discussed with Dr Sandhu Subjective 24 Hr Interval Summary Free Text/Dictation * Course reviewed with RN * hemoglobin dropped to 7.2 * Patient seen and examined * No untoward incident overnight Exam/Review of Systems Vital Signs Vitals Vital Signs Date Time Temp Pulse Resp B/P Pulse Ox O2 Delivery O2 Flow Rate FiO2 10/20/16 12:19 91 10/20/16 12:03 98.5 18 112/57 98 Room Air Intake and Output 10/19/16 10/19/16 10/20/16 15:00 23:00 07:00 Intake Total 701 ml 700 ml Output Total 800 ml Balance -99 ml 700 ml Exam Constitutional: alert, oriented Eyes: nl conjunctiva Neck: non-tender, supple Respiratory: clear to auscultation, normal air movement Cardiovascular: nl pulses, regular rate and rhythm Gastrointestinal: nl liver, spleen, non-tender, soft Extremities: normal pulses Neurological: nl speech Skin: nl turgor, No rash or lesions Lymph: nl lymph nodes Results Result Diagram: 10/20/16 0647 10/20/16 0647 Results 24 hrs Laboratory Tests Test 10/20/16 06:47 White Blood Count 7.2 Red Blood Count 2.23 L Hemoglobin 7.6 L Hematocrit 22.9 L Mean Corpuscular Volume 102.7 H Mean Corpuscular Hemoglobin 34.1 H Mean Corpuscular Hemoglobin Concent 33.2 Red Cell Distribution Width 19.9 H Platelet Count 58 L Mean Platelet Volume 9.8 Neutrophils % Segmented Neutrophils % (Manual) 58 Band Neutrophils % (Manual) 3 Lymphocytes % Lymphocytes % (Manual) 10 L Monocytes % Monocytes % (Manual) 21 H Eosinophils % Eosinophils % (Manual) 6 Basophils % Myelocytes % (Manual) 2 H Nucleated Red Blood Cells % 0.3 H Neutrophils # (Manual) 4.2 Band Neutrophils # 0.2 Absolute Lymphocytes (Manual) 0.7 L Lymphocytes # 0.7 L Monocytes # 1.5 H Absolute Monocytes (Manual) 1.5 H Eosinophils # 0.4 Basophils # Myelocytes # 0.1 H Nucleated Red Blood Cells # Polychromasia 1+ Poikilocytosis 1+ Anisocytosis 2+ Macrocytosis 1+ Prothrombin Time 29.3 H Prothrombin Time Ratio 2.3 INR International Normalized Ratio 2.73 Sodium Level 132 L Potassium Level 4.4 Chloride Level 108 Carbon Dioxide Level 18 L Anion Gap 10 Blood Urea Nitrogen 24 H Creatinine 1.15 Glucose Level 95 Calcium Level 8.5 Total Bilirubin 6.0 H Direct Bilirubin 1.60 H Indirect Bilirubin 4.4 H Aspartate Amino Transf (AST/SGOT) 109 H Alanine Aminotransferase (ALT/SGPT) 48 Alkaline Phosphatase 200 H Total Protein 6.4 Albumin 2.1 L Globulin 4.30 H Albumin/Globulin Ratio 0.48 Medications Medications Current Medications Dextrose (D50w Syringe) 100 ml ONCE PRN IV POC BLOOD GLUCOSE <250 MG/DL Last administered on 10/12/16 01:52; Admin Dose 100 ML; Start 10/12/16 at 01:30 Ondansetron HCl (Zofran Inj) 4 mg Q6H PRN IV NAUSEA AND/OR VOMITING; Start 10/12 at 04:00 Acetaminophen (Tylenol Tab) 650 mg Q6H PRN PO PAIN AND OR ELEVATED TEMP; Start 10/12/16 at 04:00 Morphine Sulfate (morphine) 2 mg Q4H PRN IV pain; Start 10/12/16 at 04:00 Famotidine (Pepcid) 20 mg DAILY PO Last administered on 10/20/16 08:02; Admin Dose 20 MG; Start 10/12/16 at 11:30 Levofloxacin (Levaquin) 500 mg DAILY@06 PO Last administered on 10/20/16 05:11 ; Admin Dose 500 MG; Start 10/14/16 at 06:00 Metronidazole (Flagyl) 500 mg Q8 PO Last administered on 10/20/16 05:11; Admin Dose 500 MG; Start 10/13/16 at 15:30 Lactobacillus Acidophilus/ Rhamnosus (Culturelle) 1 cap BID PO Last administered on 10/20/16 08:02; Admin Dose 1 CAP; Start 10/13/16 at 21:00 Zolpidem Tartrate (Ambien) 5 mg HS PRN PO INSOMNIA Last administered on 00:01; Admin Dose 5 MG; Start 10/14/16 at 18:00 Furosemide (Lasix) 40 mg DAILY@06 PO Last administered on 10/20/16 05:11; Admin Dose 40 MG; Start 10/18/16 at 13:00 LYDIA BARBOSA NP Oct 20, 2016 13:40
--- NOTE | 2016-10-20 14:48 | PN ---
Date/Time of Note Date/Time of Note DATE: 10/20/16 TIME: 14:47 Assessment/Plan VTE Prophylaxis VTE Prophylaxis Intervention: contraindicated VTE Contraindication Reason: blood coagulation disorder Lines/Catheters IV Catheter Type (from [facility]): Saline Lock Urinary Cath still in place: No Assessment/Plan Assessment/Plan 1. Large right pleural effusion - INR is still elevated despite giving Vit K daily. Will continue Vit K doses and monitor INR. When <2 will ask IR to perform US thoracentesis with pleural fluid studies - On Lasix as well - If no improvement of INR, may need to consult Hematology for assistance with getting INR down 2. Alcohol induced cirrhosis - GI consulted and appreciated recommendations. Will continue current medication and plan for EGD on Friday in am. Will keep NPO after midnight - No encephalopathy appreciated - paracentesis PRN and last was 3 months ago but denies any infections, fevers - no acute abdomen appreciated 3. Cdiff colitis - Continue on Flagyl day 7 and lactobacillus - Stool remains formed 4. anemia secondary to liver cirrhosis - stable. will continue to monitor and transfuse if hgb <7 - MCV elevated but B12 and folate normal 5. h/o alcohol abuse - quit in February - Has GI specialist and said they are putting him on the transplant list. 6. ?acute cholecystitis - CT abdomen/pelvis showed reactive gallbladder wall thickening and edema with gallstones. US of gallbladder showed mild gallbladder wall thickening with no stones. - HIDA showed nonvisible gallbladder - Dbil continues to fluctuate. - Patient has been afebrile, WBC nl, and tolerating PO diet without diarrhea 7. PT/OT - once stable will arrange for home with home health and PT Subjective 24 Hr Interval Summary Free Text/Dictation Patient c/o nausea after eating but denies any vomiting, constipation, diarrhea , chest pain, or shortness of breath. No acute overnight events. Plans for EGD tmrw. Exam/Review of Systems Vital Signs Vitals Vital Signs Date Time Temp Pulse Resp B/P Pulse Ox O2 Delivery O2 Flow Rate FiO2 10/20/16 12:19 91 10/20/16 12:03 98.5 18 112/57 98 Room Air Intake and Output 10/19/16 10/19/16 10/20/16 15:00 23:00 07:00 Intake Total 701 ml 700 ml Output Total 800 ml Balance -99 ml 700 ml Exam General- NAD, awake and alert HEENT- scleral icterus b/l, EOM intact CVS- RRR, no murmurs Lungs- diminished breath sounds on right, crackles left base. no wheezes, equal chest rise Abd- soft, mildly tender at umbilicus with palpation, nondistended, no fluid shift, no guarding or rebound. Ext- 2+ LE edema, pulses appreciated in all extremities, no flapping tremors Skin- no caput medusa or telangiectasias Results Result Diagram: 10/20/16 0647 10/20/16 0647 Results 24 hrs Laboratory Tests Test 10/20/16 06:47 White Blood Count 7.2 Red Blood Count 2.23 L Hemoglobin 7.6 L Hematocrit 22.9 L Mean Corpuscular Volume 102.7 H Mean Corpuscular Hemoglobin 34.1 H Mean Corpuscular Hemoglobin Concent 33.2 Red Cell Distribution Width 19.9 H Platelet Count 58 L Mean Platelet Volume 9.8 Neutrophils % Segmented Neutrophils % (Manual) 58 Band Neutrophils % (Manual) 3 Lymphocytes % Lymphocytes % (Manual) 10 L Monocytes % Monocytes % (Manual) 21 H Eosinophils % Eosinophils % (Manual) 6 Basophils % Myelocytes % (Manual) 2 H Nucleated Red Blood Cells % 0.3 H Neutrophils # (Manual) 4.2 Band Neutrophils # 0.2 Absolute Lymphocytes (Manual) 0.7 L Lymphocytes # 0.7 L Monocytes # 1.5 H Absolute Monocytes (Manual) 1.5 H Eosinophils # 0.4 Basophils # Myelocytes # 0.1 H Nucleated Red Blood Cells # Polychromasia 1+ Poikilocytosis 1+ Anisocytosis 2+ Macrocytosis 1+ Prothrombin Time 29.3 H Prothrombin Time Ratio 2.3 INR International Normalized Ratio 2.73 Sodium Level 132 L Potassium Level 4.4 Chloride Level 108 Carbon Dioxide Level 18 L Anion Gap 10 Blood Urea Nitrogen 24 H Creatinine 1.15 Glucose Level 95 Calcium Level 8.5 Total Bilirubin 6.0 H Direct Bilirubin 1.60 H Indirect Bilirubin 4.4 H Aspartate Amino Transf (AST/SGOT) 109 H Alanine Aminotransferase (ALT/SGPT) 48 Alkaline Phosphatase 200 H Total Protein 6.4 Albumin 2.1 L Globulin 4.30 H Albumin/Globulin Ratio 0.48 Medications Medications Current Medications Dextrose (D50w Syringe) 100 ml ONCE PRN IV POC BLOOD GLUCOSE <250 MG/DL Last administered on 10/12/16 01:52; Admin Dose 100 ML; Start 10/12/16 at 01:30 Ondansetron HCl (Zofran Inj) 4 mg Q6H PRN IV NAUSEA AND/OR VOMITING; Start 10/12 at 04:00 Acetaminophen (Tylenol Tab) 650 mg Q6H PRN PO PAIN AND OR ELEVATED TEMP; Start 10/12/16 at 04:00 Morphine Sulfate (morphine) 2 mg Q4H PRN IV pain; Start 10/12/16 at 04:00 Levofloxacin (Levaquin) 500 mg DAILY@06 PO Last administered on 10/20/16 05:11 ; Admin Dose 500 MG; Start 10/14/16 at 06:00 Metronidazole (Flagyl) 500 mg Q8 PO Last administered on 10/20/16 13:47; Admin Dose 500 MG; Start 10/13/16 at 15:30 Lactobacillus Acidophilus/ Rhamnosus (Culturelle) 1 cap BID PO Last administered on 10/20/16 08:02; Admin Dose 1 CAP; Start 10/13/16 at 21:00 Zolpidem Tartrate (Ambien) 5 mg HS PRN PO INSOMNIA Last administered on 00:01; Admin Dose 5 MG; Start 10/14/16 at 18:00 Furosemide (Lasix) 40 mg DAILY@06 PO Last administered on 10/20/16 05:11; Admin Dose 40 MG; Start 10/18/16 at 13:00 Pantoprazole (Protonix Iv) 40 mg BID@06,18 IV ; Start 10/20/16 at 18:00 POPEYE JULIEN MD Oct 20, 2016 14:47
[2016-10-20] MEDS: PANTOPRAZOLE 40 MG INJ IV SCH (17:24)
[2016-10-21] VITALS (13 sets, daily range): BP systolic 100–134; BP diastolic 55–86; PULSE 99–103; RESP 17–19
[2016-10-21] MEDS: PANTOPRAZOLE 40 MG INJ IV SCH (05:19)
[2016-10-21] MEDS: metroNIDAZOLE 500 MG TAB PO SCH ×3 (06:51→21:10)
[2016-10-21] MEDS: LEVOFLOXACIN 500 MG TAB PO SCH (06:53)
[2016-10-21] MEDS: FUROSEMIDE 40 MG TAB PO SCH (06:53)
[2016-10-21 07:46] LABS: ABNORMAL IP MESSAGE 1; BASOPHILS % 0.6 % (0.0-2.0); EOSINOPHILS # 0.2 10^3/ul (0.0-0.5); EOSINOPHILS % 3.7 % (0.0-7.0); HEMATOCRIT 23.3 % (42.0-52.0); HEMOGLOBIN 7.7 g/dl (14.0-18.0); LYMPHOCYTES % 15.4 % (15.0-51.0); MEAN CORPUSCULAR HEMOGLOBIN 34.1 pg (29.0-33.0); MEAN CORPUSCULAR VOLUME 103.1 fl (82.0-101.0); MEAN PLATELET VOLUME 10.3 fl (7.4-10.4); MONOCYTE # 1.6 10^3/ul (0.3-0.9); MONOCYTES % 25.5 % (0.0-11.0); NEUTROPHILS % 50.8 % (39.0-77.0); PLATELET COUNT 58 10^3/UL (140-415); POSITIVE DIFF @See below; RED BLOOD COUNT 2.26 10^6/ul (4.70-6.10); RED CELL DISTRIBUTION WIDTH 19.2 % (11.5-14.5); WHITE BLOOD COUNT 6.4 10^3/ul (4.8-10.8)
[2016-10-21 08:09] LABS: INR 2.94; PROTIME 31.1 Sec (12.2-14.2); PT RATIO 2.4
[2016-10-21 08:15] LABS: ALBUMIN 2.1 g/dl (3.3-4.9); ALBUMIN/GLOBULIN RATIO 0.5; BILIRUBIN,DIRECT 1.3 mg/dl (0.00-0.20); BILIRUBIN,INDIRECT 5.7 mg/dl (0-1.1); CALCIUM 8.5 mg/dl (8.4-10.2); CREATININE 1.13 mg/dl (0.61-1.24); POTASSIUM 4.5 mmol/L (3.5-5.1); TOTAL PROTEIN 6.3 g/dl (6.1-8.1)
[2016-10-21] MEDS: LACTOBACILLUS RHAMNOSUS CAP PO SCH ×2 (08:55→21:10)
--- NOTE | 2016-10-21 11:41 | PN ---
Date/Time of Note Date/Time of Note DATE: 10/21/16 TIME: 11:28 Assessment/Plan VTE Prophylaxis VTE Prophylaxis Intervention: other (coagulopathy) Lines/Catheters IV Catheter Type (from [facility]): Saline Lock Urinary Cath still in place: No Assessment/Plan Assessment/Plan 1. Cholelithiasis with gallbladder wall thickening on CT/US, HIDA scan is not reliable due to liver cirrhosis, clinically likely cholecystitis, on levaquin and flagyl, surgery consult 2. Large right pleural effusion, awaiting for INR to be lower than 2 to get US- guided thoracentesis, Vitamin K will not work well for severe chronic liver disease, give two units of FFP 3. Alcohol induced liver cirrhosis 4. Cdiff colitis, Continue on Flagyl day 7 and lactobacillus 5. anemia secondary to liver cirrhosis and alcoholism, consider transfuse PRBC tomorrow(FFP today) 6. Alcohol abuse, quit in February 7. Coagulopathy due to chronic alcoholic liver disease Exam/Review of Systems Vital Signs Vitals Vital Signs Date Time Temp Pulse Resp B/P Pulse Ox O2 Delivery O2 Flow Rate FiO2 10/21/16 08:23 101 10/21/16 08:09 98.0 18 112/58 98 10/20/16 17:26 Room Air Intake and Output 10/20/16 10/20/16 10/21/16 15:00 23:00 07:00 Intake Total 650 ml 240 ml Balance 650 ml 240 ml Exam Constitutional: alert, oriented Psych: nl mood/affect, no complaints Head: atraumatic, normocephalic Eyes: EOMI, PERRL, nl conjunctiva, nl lids, nl sclera ENMT: nl external ears & nose, nl lips & teeth, nl nasal mucosa & septum Neck: non-tender, supple Respiratory: clear to auscultation, normal air movement, No congested cough, No crackles/rales, No diminished breath sounds, No intercostal retraction, No labored breathing, No other, No respirations, No tactile fremitus, No wheezing Cardiovascular: nl pulses, regular rate and rhythm, No S3, No S4, No bruits, No diastolic murmur, No edema, No gallop, No irregular rhythm, No jugular venous distention (JVD), No murmurs/extra sounds, No other, No rub, No systolic murmur Gastrointestinal: soft, tender (epigastric tenderness) Musculoskeletal: nl extremities to inspection Extremities: normal pulses, No calf tenderness, No clubbing, No cyanosis, No edema, No other, No palpable cord, No pitting pedal edema, No tenderness Neurological: REPORT MANAGER II-XII intact, nl mental status, nl speech, nl strength Skin: nl turgor Lymph: nl lymph nodes Results Result Diagram: 10/21/16 0628 10/21/16 06 Results 24 hrs Laboratory Tests Test 10/21/16 06:25 10/21/16 06:28 Sodium Level 131 L Potassium Level 4.5 Chloride Level 106 Carbon Dioxide Level 20 L Anion Gap 10 Blood Urea Nitrogen 24 H Creatinine 1.13 Glucose Level 65 #L Calcium Level 8.5 Total Bilirubin 7.0 H Direct Bilirubin 1.30 H Indirect Bilirubin 5.7 H Aspartate Amino Transf (AST/SGOT) 106 H Alanine Aminotransferase (ALT/SGPT) 50 Alkaline Phosphatase 169 H Total Protein 6.3 Albumin 2.1 L Globulin 4.20 H Albumin/Globulin Ratio 0.50 White Blood Count 6.4 Red Blood Count 2.26 L Hemoglobin 7.7 L Hematocrit 23.3 L Mean Corpuscular Volume 103.1 H Mean Corpuscular Hemoglobin 34.1 H Mean Corpuscular Hemoglobin Concent 33.0 Red Cell Distribution Width 19.2 H Platelet Count 58 L Mean Platelet Volume 10.3 Neutrophils % 50.8 Lymphocytes % 15.4 Monocytes % 25.5 H Eosinophils % 3.7 Basophils % 0.6 Nucleated Red Blood Cells % 0.0 Neutrophils # (Manual) 3.3 Lymphocytes # 1.0 Monocytes # 1.6 H Eosinophils # 0.2 Basophils # 0.0 Nucleated Red Blood Cells # 0.0 Prothrombin Time 31.1 H Prothrombin Time Ratio 2.4 INR International Normalized Ratio 2.94 Medications Medications Current Medications Dextrose (D50w Syringe) 100 ml ONCE PRN IV POC BLOOD GLUCOSE <250 MG/DL Last administered on 10/12/16t 01:52; Admin Dose 100 ML; Start 10/12/16 at 01:30 Ondansetron HCl (Zofran Inj) 4 mg Q6H PRN IV NAUSEA AND/OR VOMITING; Start 10/12 at 04:00 Acetaminophen (Tylenol Tab) 650 mg Q6H PRN PO PAIN AND OR ELEVATED TEMP; Start 10/12/16 at 04:00 Morphine Sulfate (morphine) 2 mg Q4H PRN IV pain; Start 10/12/16 at 04:00 Levofloxacin (Levaquin) 500 mg DAILY@06 PO Last administered on 10/21/16 06:53 ; Admin Dose 500 MG; Start 10/14/16 at 06:00 Metronidazole (Flagyl) 500 mg Q8 PO Last administered on 10/21/16 06:51; Admin Dose 500 MG; Start 10/13/16 at 15:30 Lactobacillus Acidophilus/ Rhamnosus (Culturelle) 1 cap BID PO Last administered on 10/20/16 20:34; Admin Dose 1 CAP; Start 10/13/16 at 21:00 Zolpidem Tartrate (Ambien) 5 mg HS PRN PO INSOMNIA Last administered on 21:28; Admin Dose 5 MG; Start 10/14/16 at 18:00 Furosemide (Lasix) 40 mg DAILY@06 PO Last administered on 10/21/16 06:53; Admin Dose 40 MG; Start 10/18/16 at 13:00 Pantoprazole (Protonix Iv) 40 mg BID@,18 IV Last administered on 10/21/16 05 :19; Admin Dose 40 MG; Start 10/20/16 at 18:00 LIZ VELASCO MD Oct 21, 2016 11:40
[2016-10-21] MEDS: PANTOPRAZOLE (EC) 40 MG TAB PO SCH (18:00)
[2016-10-21] MEDS ORDERED: MIDAZOLAM 1 MG/ML 2 ML INJ ONE (18:40)
[2016-10-21] MEDS ORDERED: FENTAnyl 50 MCG/ML VIAL ONE (18:40)
[2016-10-21] MEDS ORDERED: PROPOFOL 20 ML ONE (18:40)
[2016-10-21] MEDS ORDERED: ONDANSETRON 4 MG INJ IV PRN (19:00)
[2016-10-21] MEDS ORDERED: EPHEDrine SULFATE 50 MG/5 ML SYG IV PRN (19:00)
--- NOTE | 2016-10-21 19:02 | OPPN ---
Date/Time of Note Date/Time of Note DATE: 10/21/16 TIME: 18:57 Proc Note GI Procedure date: Oct 21, 2016 Pre-procedure Diagnosis * Anemia Post-procedure Diagnosis Assessment: * Grade I/IV esophageal varices. No intervention * Severe portal hypertensive gastropathy/gastritis * No biopsies obtained due to severe coagulopathy * Otherwise normal EGD Plan: * Continue PPI therapy * H pylori serology * Monitored H&H transfuse as necessary * Abstinence and hopefully some liver recovery Operation Performed * EGD Surgeon: LAMBERTO LEDEZMA MD Anesthesia Type: MAC Anesthesiologist: CARLEY MURO MD Estimated blood loss: minimal Transfusion Required: no Specimen: none Grafts/Implants: none Complications: no Pt Condition post procedure: stable Disposition: PACU Procedure Description Preoperative Diagnosis: [] Postoperative Diagnosis: After informed consent, with the patient/relatives understanding the procedure, its indications, potential risks and complications, including but not limited to : allergic reaction, bleeding, perforation or infection, and after all pertinent questions were answered to the patients satisfaction, the patient/ relatives signed witnessed informed consent. Following this, premedication was administered slowly IV push under careful cardiovascular and respiratory monitoring with pulse oximetry, automatic blood pressure, and nurse monitoring. Once the sedative effect was achieved the patient was place in the left lateral decubitus, the panendoscope was introduced and advanced under visual control. Careful examination of the upper gastrointestinal tract, both on insertion as well as withdrawal of the instrument disclosing the following findings: ESOPHAGUS: the mucosa of the entire esophagus was carefully examined and showed the following findings: There are grade I/IV esophageal varices. No therapeutic intervention indicated. Otherwise the mucosa appears within normal limits. There is no evidence of esophagitis, neoplasm, or stricture. No Hiatal Hernia identified. STOMACH: Upon entrance to the stomach air was insufflated, the gastric madsen distended normally. The mucosa of the fundus, body and antrum of the stomach was carefully examined both head-on and on retroflexion, and showed the following findings: There is significant erythema, edema, congestion, friability of the mucosa of the entire stomach consistent with portal hypertensive gastropathy plus minus gastritis. No biopsies were obtained due to severe coagulopathy. Otherwise 0the mucosa appears within normal limits with no abnormalities. There is no evidence of ulcers or neoplasm. PYLORUS: The pylorus was carefully examined and showed the following findings: the pylorus appears patent and within normal limits, with no evidence of gastric outlet obstruction. DUODENUM: The duodenal mucosa was carefully examined in the duodenal bulb as well as the second portion of the duodenum and showed the following findings: the mucosa appears unremarkable with no evidence of duodenitis, ulcer or neoplasm. LAMBERTO LEDEZMA MD Oct 21, 2016 19:02
[2016-10-22] VITALS (11 sets, daily range): BP systolic 94–119; BP diastolic 54–70; PULSE 83–91; RESP 18–19
[2016-10-22] MEDS: metroNIDAZOLE 500 MG TAB PO SCH ×3 (06:47→22:17)
[2016-10-22] MEDS: LEVOFLOXACIN 500 MG TAB PO SCH (06:47)
[2016-10-22] MEDS: PANTOPRAZOLE (EC) 40 MG TAB PO SCH ×2 (06:47→18:22)
[2016-10-22] MEDS: FUROSEMIDE 40 MG TAB PO SCH (06:47)
[2016-10-22 06:55] LABS: ABNORMAL IP MESSAGE 1; BASOPHILS % 0.5 % (0.0-2.0); EOSINOPHILS # 0.2 10^3/ul (0.0-0.5); EOSINOPHILS % 3.9 % (0.0-7.0); HEMATOCRIT 21.1 % (42.0-52.0); HEMOGLOBIN 7.4 g/dl (14.0-18.0); LYMPHOCYTES % 16.9 % (15.0-51.0); MEAN CORPUSCULAR HEMOGLOBIN 36.3 pg (29.0-33.0); MEAN CORPUSCULAR HGB CONC 35.1 g/dl (32.0-37.0); MEAN CORPUSCULAR VOLUME 103.4 fl (82.0-101.0); MEAN PLATELET VOLUME 9.9 fl (7.4-10.4); MONOCYTE # 1.3 10^3/ul (0.3-0.9); MONOCYTES % 21.6 % (0.0-11.0); NEUTROPHILS % 55.1 % (39.0-77.0); PLATELET COUNT 54 10^3/UL (140-415); POSITIVE DIFF @See below; RED BLOOD COUNT 2.04 10^6/ul (4.70-6.10); RED CELL DISTRIBUTION WIDTH 19.7 % (11.5-14.5); WHITE BLOOD COUNT 5.9 10^3/ul (4.8-10.8)
[2016-10-22 07:20] LABS: ALBUMIN 2.1 g/dl (3.3-4.9); ALBUMIN/GLOBULIN RATIO 0.52; BILIRUBIN,DIRECT 1.6 mg/dl (0.00-0.20); BILIRUBIN,INDIRECT 6.1 mg/dl (0-1.1); BILIRUBIN,TOTAL 7.7 mg/dl (0.2-1.3); CALCIUM 8.6 mg/dl (8.4-10.2); CREATININE 1.05 mg/dl (0.61-1.24); POTASSIUM 3.9 mmol/L (3.5-5.1); TOTAL PROTEIN 6.1 g/dl (6.1-8.1)
[2016-10-22 07:24] LABS: INR 2.17; PROTIME 24.4 Sec (12.2-14.2); PT RATIO 1.9
[2016-10-22 07:25] LABS: PARTIAL THROMBOPLASTIN TIME 48.9 Sec (25.0-35.0)
[2016-10-22] MEDS: LACTOBACILLUS RHAMNOSUS CAP PO SCH ×2 (09:00→22:17)
--- NOTE | 2016-10-22 10:26 | PN ---
Date/Time of Note Date/Time of Note DATE: 10/22/16 TIME: 10:21 Assessment/Plan VTE Prophylaxis VTE Prophylaxis Intervention: other (coagulopathy) Lines/Catheters IV C[facility]ter Type (from [facility]): Saline Lock Urinary Cath still in place: No Assessment/Plan Assessment/Plan 1. Large right pleural effusion, awaiting for INR to be lower than 2 to get US- guided thoracentesis, Vitamin K will not work well for severe chronic liver disease, give two units of FFP today 2. Cholelithiasis with gallbladder wall thickening on CT/US, HIDA scan is not reliable due to liver cirrhosis, negative Keller's sign, on levaquin and flagyl , surgery consult 3. Alcohol induced liver cirrhosis 4. C diff colitis, Continue on Flagyl day 7 and lactobacillus 5. anemia secondary to liver cirrhosis and alcoholism, consider transfuse PRBC tomorrow(FFP today) 6. Alcohol abuse, quit in February 7. Coagulopathy due to chronic alcoholic liver disease Subjective 24 Hr Interval Summary Free Text/Dictation mild epigastric pain, no nausea or vomiting Exam/Review of Systems Vital Signs Vitals Vital Signs Date Time Temp Pulse Resp B/P Pulse Ox O2 Delivery O2 Flow Rate FiO2 10/22/16 08:38 98.2 79 19 119/70 95 10/21/16 17:35 Room Air Intake and Output 10/21/16 10/21/16 10/22/16 15:00 23:00 07:00 Intake Total 66 ml 577 ml Output Total 700 ml Balance -634 ml 577 ml Exam Constitutional: alert, oriented, well developed Psych: nl mood/affect, no complaints Head: atraumatic, normocephalic Eyes: EOMI, nl conjunctiva, nl lids ENMT: nl external ears & nose, nl lips & teeth, nl nasal mucosa & septum Neck: non-tender, supple Respiratory: clear to auscultation, normal air movement, No congested cough, No crackles/rales, No diminished breath sounds, No intercostal retraction, No labored breathing, No other, No respirations, No tactile fremitus, No wheezing Cardiovascular: nl pulses, regular rate and rhythm, No S3, No S4, No bruits, No diastolic murmur, No edema, No gallop, No irregular rhythm, No jugular venous distention (JVD), No murmurs/extra sounds, No other, No rub, No systolic murmur Gastrointestinal: nl liver, spleen, soft, tender (epigastric pain) Musculoskeletal: nl extremities to inspection Extremities: normal pulses, No calf tenderness, No clubbing, No cyanosis, No edema, No other, No palpable cord, No pitting pedal edema, No tenderness 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, nl mental status, nl speech, nl strength Results Result Diagram: 10/22/16 0621 10/22/16 0621 Results 24 hrs Laboratory Tests Test 10/22/16 06:21 White Blood Count 5.9 Red Blood Count 2.04 L Hemoglobin 7.4 L Hematocrit 21.1 L Mean Corpuscular Volume 103.4 H Mean Corpuscular Hemoglobin 36.3 H Mean Corpuscular Hemoglobin Concent 35.1 Red Cell Distribution Width 19.7 H Platelet Count 54 L Mean Platelet Volume 9.9 Neutrophils % 55.1 Lymphocytes % 16.9 Monocytes % 21.6 H Eosinophils % 3.9 Basophils % 0.5 Nucleated Red Blood Cells % 0.0 Neutrophils # (Manual) 3.2 Lymphocytes # 1.0 Monocytes # 1.3 H Eosinophils # 0.2 Basophils # 0.0 Nucleated Red Blood Cells # 0.0 Prothrombin Time 24.4 #H Prothrombin Time Ratio 1.9 INR International Normalized Ratio 2.17 Activated Partial Thromboplast Time 48.9 H Sodium Level 135 Potassium Level 3.9 Chloride Level 108 Carbon Dioxide Level 21 Anion Gap 10 Blood Urea Nitrogen 23 H Creatinine 1.05 Glucose Level 67 L Calcium Level 8.6 Total Bilirubin 7.7 H Direct Bilirubin 1.60 H Indirect Bilirubin 6.1 H Aspartate Amino Transf (AST/SGOT) 88 H Alanine Aminotransferase (ALT/SGPT) 46 Alkaline Phosphatase 119 Total Protein 6.1 Albumin 2.1 L Globulin 4.00 H Albumin/Globulin Ratio 0.52 Medications Medications Current Medications Dextrose (D50w Syringe) 100 ml ONCE PRN IV POC BLOOD GLUCOSE <250 MG/DL Last administered on 10/12/16t 01:52; Admin Dose 100 ML; Start 10/12/16 at 01:30 Ondansetron HCl (Zofran Inj) 4 mg Q6H PRN IV NAUSEA AND/OR VOMITING; Start 10/12 at 04:00 Acetaminophen (Tylenol Tab) 650 mg Q6H PRN PO PAIN AND OR ELEVATED TEMP; Start 10/12/16 at 04:00 Morphine Sulfate (morphine) 2 mg Q4H PRN IV pain; Start 10/12/16 at 04:00 Levofloxacin (Levaquin) 500 mg DAILY@06 PO Last administered on 10/22/16 06:47 ; Admin Dose 500 MG; Start 10/14/16 at 06:00 Metronidazole (Flagyl) 500 mg Q8 PO Last administered on 10/22/16 06:47; Admin Dose 500 MG; Start 10/13/16 at 15:30 Lactobacillus Acidophilus/ Rhamnosus (Culturelle) 1 cap BID PO Last administered on 10/21/16 21:10; Admin Dose 1 CAP; Start 10/13/16 at 21:00 Zolpidem Tartrate (Ambien) 5 mg HS PRN PO INSOMNIA Last administered on 21:28; Admin Dose 5 MG; Start 10/14/16 at 18:00 Furosemide (Lasix) 40 mg DAILY@06 PO Last administered on 10/22/16 06:47; Admin Dose 40 MG; Start 10/18/16 at 13:00 Pantoprazole (Protonix Tab) 40 mg BID@06,18 PO Last administered on 10/22/16 06:47; Admin Dose 40 MG; Start 10/21/16 at 18:00 LIZ VELASCO MD Oct 22, 2016 10:26
[2016-10-22] MEDS: ZOLPIDEM 5 MG TAB PO PRN (22:28)
[2016-10-23] VITALS (13 sets, daily range): BP systolic 96–117; BP diastolic 52–69; PULSE 86–103; RESP 15–19
[2016-10-23] MEDS: LEVOFLOXACIN 500 MG TAB PO SCH (05:14)
[2016-10-23] MEDS: metroNIDAZOLE 500 MG TAB PO SCH ×3 (05:14→20:40)
[2016-10-23] MEDS: PANTOPRAZOLE (EC) 40 MG TAB PO SCH ×2 (05:14→16:55)
[2016-10-23] MEDS: FUROSEMIDE 40 MG TAB PO SCH (05:14)
[2016-10-23 07:05] LABS: ABNORMAL IP MESSAGE 1; BASOPHILS % 0.7 % (0.0-2.0); EOSINOPHILS # 0.3 10^3/ul (0.0-0.5); EOSINOPHILS % 4.2 % (0.0-7.0); HEMATOCRIT 22.3 % (42.0-52.0); HEMOGLOBIN 7.7 g/dl (14.0-18.0); LYMPHOCYTES # 1.2 10^3/ul (0.8-2.9); LYMPHOCYTES % 20.1 % (15.0-51.0); MEAN CORPUSCULAR HEMOGLOBIN 35.6 pg (29.0-33.0); MEAN CORPUSCULAR HGB CONC 34.5 g/dl (32.0-37.0); MEAN CORPUSCULAR VOLUME 103.2 fl (82.0-101.0); MONOCYTE # 1.3 10^3/ul (0.3-0.9); MONOCYTES % 22.4 % (0.0-11.0); NEUTROPHILS % 51.3 % (39.0-77.0); PLATELET COUNT 57 10^3/UL (140-415); POSITIVE DIFF @See below; RED BLOOD COUNT 2.16 10^6/ul (4.70-6.10); RED CELL DISTRIBUTION WIDTH 19.5 % (11.5-14.5)
[2016-10-23 07:34] LABS: ALBUMIN 2.3 g/dl (3.3-4.9); ALBUMIN/GLOBULIN RATIO 0.52; BILIRUBIN,DIRECT 1.7 mg/dl (0.00-0.20); BILIRUBIN,INDIRECT 6.1 mg/dl (0-1.1); BILIRUBIN,TOTAL 7.8 mg/dl (0.2-1.3); CALCIUM 8.6 mg/dl (8.4-10.2); CREATININE 1.08 mg/dl (0.61-1.24); TOTAL PROTEIN 6.7 g/dl (6.1-8.1)
[2016-10-23] MEDS: LACTOBACILLUS RHAMNOSUS CAP PO SCH ×2 (08:25→20:40)
--- NOTE | 2016-10-23 12:45 | PN ---
Date/Time of Note Date/Time of Note DATE: 10/23/16 TIME: 12:34 Assessment/Plan VTE Prophylaxis VTE Prophylaxis Intervention: other (coagulopathy) Lines/Catheters IV Catheter Type (from [facility]): Saline Lock Urinary Cath still in place: No Assessment/Plan Assessment/Plan 1. Large right pleural effusion, awaiting for US-guided thoracentesis 2. Cholelithiasis with gallbladder wall thickening on CT/US, HIDA scan is not reliable due to liver cirrhosis, negative Keller's sign, on levaquin and flagyl , surgery consult Dr. Biswas 3. Alcohol induced liver cirrhosis 4. C diff colitis, Continue on Flagyl day 7 and lactobacillus 5. anemia secondary to liver cirrhosis and alcoholism, consider transfuse PRBC tomorrow(FFP today) 6. Alcohol abuse, quit in February 7. Coagulopathy due to chronic alcoholic liver disease 8. Thrombocytopenia, due to chronic liver disease, stable PLT Subjective 24 Hr Interval Summary Free Text/Dictation afebrile. no shortness of breath Exam/Review of Systems Vital Signs Vitals Vital Signs Date Time Temp Pulse Resp B/P Pulse Ox O2 Delivery O2 Flow Rate FiO2 10/23/16 12:01 98.3 94 18 96/52 96 10/23/16 05:46 Room Air Intake and Output 10/22/16 10/22/16 10/23/16 15:00 23:00 07:00 Intake Total 500 ml 300 ml Balance 500 ml 300 ml Exam Constitutional: alert, oriented, well developed Head: atraumatic, normocephalic Eyes: EOMI, PERRL, nl conjunctiva, nl lids, nl sclera ENMT: nl external ears & nose, nl lips & teeth, nl nasal mucosa & septum Neck: non-tender, supple Respiratory: clear to auscultation, normal air movement, other (low breath sound on right), No congested cough, No crackles/rales, No diminished breath sounds, No intercostal retraction, No labored breathing, No respirations, No tactile fremitus, No wheezing Cardiovascular: nl pulses, regular rate and rhythm, No S3, No S4, No bruits, No diastolic murmur, No edema, No gallop, No irregular rhythm, No jugular venous distention (JVD), No murmurs/extra sounds, No other, No rub, No systolic murmur Gastrointestinal: nl liver, spleen, soft, tender (epigastric) Musculoskeletal: nl extremities to inspection Extremities: normal pulses, No calf tenderness, No clubbing, No cyanosis, No edema, No other, No palpable cord, No pitting pedal edema, No tenderness 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, nl mental status, nl speech, nl strength Results Result Diagram: 10/23/16 0619 10/23/16 0619 Results 24 hrs Laboratory Tests Test 10/22/16 12:40 10/23/16 05:53 10/23/16 06:19 Lab Scanned Report REFERENCE LAB BLOOD TRANSFUSION White Blood Count 6.0 Red Blood Count 2.16 L Hemoglobin 7.7 L Hematocrit 22.3 L Mean Corpuscular Volume 103.2 H Mean Corpuscular Hemoglobin 35.6 H Mean Corpuscular Hemoglobin Concent 34.5 Red Cell Distribution Width 19.5 H Platelet Count 57 L Mean Platelet Volume 10.0 Neutrophils % 51.3 Lymphocytes % 20.1 Monocytes % 22.4 H Eosinophils % 4.2 Basophils % 0.7 Nucleated Red Blood Cells % 0.0 Neutrophils # (Manual) 3.1 Lymphocytes # 1.2 Monocytes # 1.3 H Eosinophils # 0.3 Basophils # 0.0 Nucleated Red Blood Cells # 0.0 Sodium Level 133 L Potassium Level 4.0 Chloride Level 104 Carbon Dioxide Level 22 Anion Gap 11 Blood Urea Nitrogen 20 Creatinine 1.08 Glucose Level 78 Calcium Level 8.6 Total Bilirubin 7.8 H Direct Bilirubin 1.70 H Indirect Bilirubin 6.1 H Aspartate Amino Transf (AST/SGOT) 101 H Alanine Aminotransferase (ALT/SGPT) 42 Alkaline Phosphatase 126 H Total Protein 6.7 Albumin 2.3 L Globulin 4.40 H Albumin/Globulin Ratio 0.52 Medications Medications Current Medications Dextrose (D50w Syringe) 100 ml ONCE PRN IV POC BLOOD GLUCOSE <250 MG/DL Last administered on 10/12/16t 01:52; Admin Dose 100 ML; Start 10/12/16 at 01:30 Ondansetron HCl (Zofran Inj) 4 mg Q6H PRN IV NAUSEA AND/OR VOMITING; Start 10/12 at 04:00 Acetaminophen (Tylenol Tab) 650 mg Q6H PRN PO PAIN AND OR ELEVATED TEMP; Start 10/12/16 at 04:00 Morphine Sulfate (morphine) 2 mg Q4H PRN IV pain; Start 10/12/16 at 04:00 Levofloxacin (Levaquin) 500 mg DAILY@06 PO Last administered on 10/23/16 05:14 ; Admin Dose 500 MG; Start 10/14/16 at 06:00 Metronidazole (Flagyl) 500 mg Q8 PO Last administered on 10/23/16 05:14; Admin Dose 500 MG; Start 10/13/16 at 15:30 Lactobacillus Acidophilus/ Rhamnosus (Culturelle) 1 cap BID PO Last administered on 10/23/16 08:25; Admin Dose 1 CAP; Start 10/13/16 at 21:00 Zolpidem Tartrate (Ambien) 5 mg HS PRN PO INSOMNIA Last administered on 22:28; Admin Dose 5 MG; Start 10/14/16 at 18:00 Furosemide (Lasix) 40 mg DAILY@06 PO Last administered on 10/23/16 05:14; Admin Dose 40 MG; Start 10/18/16 at 13:00 Pantoprazole (Protonix Tab) 40 mg BID@,18 PO Last administered on 10/23/16 05:14; Admin Dose 40 MG; Start 10/21/16 at 18:00 LIZ VELASCO MD Oct 23, 2016 12:44
[2016-10-23 13:58] LABS: INR 2.56; PROTIME 27.8 Sec (12.2-14.2); PT RATIO 2.2
--- NOTE | 2016-10-23 15:34 | PN ---
Date/Time of Note Date/Time of Note DATE: 10/23/16 TIME: 15:28 Assessment/Plan VTE Prophylaxis VTE Prophylaxis Intervention: SCD's Lines/Catheters [facility] Saline Lock Urinary Cath still in place: No Assessment/Plan Chief Complaint/Hosp Course Problems: Assessment/Plan Assessment: * Sepsis * Pleural effusion managed pulmonary * End stage liver disease * Cirrhosis liver * H/O alcoholism * C difficile colitis EGD * Grade I/IV esophageal varices. No intervention * Severe portal hypertensive gastropathy/gastritis * No biopsies obtained due to severe coagulopathy * Otherwise normal EGD Plan * continue present management * further orders will depend on clinical course * case discussed with DR Sandhu Subjective 24 Hr Interval Summary Free Text/Dictation * course reviewed with RN * patient seen and examined * No untoward events overnight Exam/Review of Systems Vital Signs Vitals Vital Signs Date Time Temp Pulse Resp B/P Pulse Ox O2 Delivery O2 Flow Rate FiO2 10/23/16 12:39 103 10/23/16 12:01 98.3 18 96/52 96 10/23/16 05:46 Room Air Intake and Output 10/22/16 10/22/16 10/23/16 15:00 23:00 07:00 Intake Total 500 ml 300 ml Balance 500 ml 300 ml Exam Constitutional: alert, oriented Neck: non-tender, supple Respiratory: clear to auscultation, normal air movement Cardiovascular: nl pulses, regular rate and rhythm Gastrointestinal: non-tender, soft Musculoskeletal: nl extremities to inspection, nl gait and stance Extremities: normal pulses Neurological: nl speech, nl strength Skin: nl turgor, No rash or lesions Results Result Diagram: 10/23/16 0619 10/23/16 0619 Results 24 hrs Laboratory Tests Test 10/23/16 05:53 10/23/16 06:19 10/23/16 13:20 Lab Scanned Report BLOOD TRANSFUSION White Blood Count 6.0 Red Blood Count 2.16 L Hemoglobin 7.7 L Hematocrit 22.3 L Mean Corpuscular Volume 103.2 H Mean Corpuscular Hemoglobin 35.6 H Mean Corpuscular Hemoglobin Concent 34.5 Red Cell Distribution Width 19.5 H Platelet Count 57 L Mean Platelet Volume 10.0 Neutrophils % 51.3 Lymphocytes % 20.1 Monocytes % 22.4 H Eosinophils % 4.2 Basophils % 0.7 Nucleated Red Blood Cells % 0.0 Neutrophils # (Manual) 3.1 Lymphocytes # 1.2 Monocytes # 1.3 H Eosinophils # 0.3 Basophils # 0.0 Nucleated Red Blood Cells # 0.0 Sodium Level 133 L Potassium Level 4.0 Chloride Level 104 Carbon Dioxide Level 22 Anion Gap 11 Blood Urea Nitrogen 20 Creatinine 1.08 Glucose Level 78 Calcium Level 8.6 Total Bilirubin 7.8 H Direct Bilirubin 1.70 H Indirect Bilirubin 6.1 H Aspartate Amino Transf (AST/SGOT) 101 H Alanine Aminotransferase (ALT/SGPT) 42 Alkaline Phosphatase 126 H Total Protein 6.7 Albumin 2.3 L Globulin 4.40 H Albumin/Globulin Ratio 0.52 Prothrombin Time 27.8 H Prothrombin Time Ratio 2.2 INR International Normalized Ratio 2.56 Medications Medications Current Medications Dextrose (D50w Syringe) 100 ml ONCE PRN IV POC BLOOD GLUCOSE <250 MG/DL Last administered on 10/12/16 01:52; Admin Dose 100 ML; Start 10/12/16 at 01:30 Ondansetron HCl (Zofran Inj) 4 mg Q6H PRN IV NAUSEA AND/OR VOMITING; Start 10/12 at 04:00 Acetaminophen (Tylenol Tab) 650 mg Q6H PRN PO PAIN AND OR ELEVATED TEMP; Start 10/12/16 at 04:00 Morphine Sulfate (morphine) 2 mg Q4H PRN IV pain; Start 10/12/16 at 04:00 Levofloxacin (Levaquin) 500 mg DAILY@06 PO Last administered on 10/23/16 05:14 ; Admin Dose 500 MG; Start 10/14/16 at 06:00 Metronidazole (Flagyl) 500 mg Q8 PO Last administered on 10/23/16 14:59; Admin Dose 500 MG; Start 10/13/16 at 15:30 Lactobacillus Acidophilus/ Rhamnosus (Culturelle) 1 cap BID PO Last administered on 10/23/16 08:25; Admin Dose 1 CAP; Start 10/13/16 at 21:00 Zolpidem Tartrate (Ambien) 5 mg HS PRN PO INSOMNIA Last administered on 22:28; Admin Dose 5 MG; Start 10/14/16 at 18:00 Furosemide (Lasix) 40 mg DAILY@06 PO Last administered on 10/23/16 05:14; Admin Dose 40 MG; Start 10/18/16 at 13:00 Pantoprazole (Protonix Tab) 40 mg BID@06,18 PO Last administered on 10/23/16t 05:14; Admin Dose 40 MG; Start 10/21/16 at 18:00 LYDIA BARBOSA NP Oct 23, 2016 15:33
--- NOTE | 2016-10-23 17:16 | CONS ---
Date/Time of Note Date/Time of Note DATE: 10/23/16 TIME: 17:15 Assessment/Plan Assessment/Plan Additional Assessment/Plan [facility] INPATIENT CONSULTATION NOTE DATE OF SERVICE: 10/23/2016 PLACE OF SERVICE: [facility], fifth [facility] tele[facility] ASSESSMENT AND PLAN: A very-pleasant but unfortunate 60-year-old gentleman with alcoholic cirrhosis complicated by portal hypertension as evidenced by his thrombocytopenia, ascites and pleural effusions, active hepatitis and elevated INR, who has had radiologic findings of thickened gallbladder wall and positive HIDA scan, but no obvious surgical indications for cholecystectomy or other major interventions. In fact, there are significant contraindications for most surgical interventions with the exception of life-threatening situations given the patient's above clinical picture. Furthermore, HIDA scans are notoriously unreliable in the setting of active hepatitis and alcoholic or other types of cirrhosis. In addition, my review of the HIDA scan differs with the official report. I believe that I see a sliver of gallbladder in the images. Patient's pain complaints are also not in the right upper quadrant and patient had negative Keller sign on the ultrasound of the right upper quadrant. In short, I do not see any indication for surgical intervention at this time. Patient is already scheduled to see [facility] for transplant evaluation which would be the strong recommendation from hepatobiliary standpoint. Dr. Andres is the patient' s main gridcap machine operator and I already asked the patient's permission and obtained it to communicate with him regarding his hospitalization. Explain all the above to the patient (no family present in the room during my discussions with the patient) and answered all questions. Patient appeared to understand and agreed with the plans. With above assessment, I've recommended the followin. Continue current cares 2. Optimization of hepatic function 3. Consideration for possible pleural tapping on the right side given the size of the pleural effusion versus continued observation since there is a slight risk of complication with this procedure 4. Strongly recommend aggressive continuation of transplant evaluation; I reviewed the importance of patient staying sober and getting involved with Alcoholics Anonymous to meet criteria for transplant Thank you very much for having me involved in the care of this very pleasant patient and wonderful family. If you have any questions, please feel free to contact me at [phone]. Nature of presenting problem: High severity Please note that, given the extensive number of diagnoses or management options , the extensive amount and/or complexity of data needed to be reviewed, and high risk of complications and/or morbidity or mortality, this qualifies as high complexity type of decision-making. Disclaimer: Inadvertent spelling and grammatical errors are likely due to EHR/ dictation software use and do not reflect on the quality of delivered patient care. Also, please note that the electronic time recorded on this node does not necessarily reflect the actual time of the visit. Updated clinical summary: A very-pleasant but unfortunate 60-year-old gentleman with alcoholic cirrhosis complicated by portal hypertension as evidenced by his thrombocytopenia, ascites and pleural effusions, active hepatitis and elevated INR, who has had radiologic findings of thickened gallbladder wall and positive HIDA scan, but no obvious surgical indications for cholecystectomy or other major interventions. Comorbidities: 1. Alcoholic cirrhosis complicated by portal hypertension as evidenced by his thrombocytopenia, ascites and pleural effusions, active hepatitis with abnormal LFTs and elevated INR 2. C. difficile colitis 3. Grade 1 out of 4 esophageal varices 4. Large right-sided pleural effusion 5. Anemia 6. Coagulopathy with elevated INR 7. Thrombocytopenia with platelets mainly in the 50s and 60s 8. Hypertension CONSULTATION REQUESTED BY: Michael Calvert MD Dear Dr. Calvert: Thank you very much for allowing me to participate in the care of this very pleasant gentleman and I am certain his wonderful family. HISTORY OF PRESENT ILLNESS: The patient is a very pleasant 60-year-old gentleman with above-mentioned comorbidities whom we were kindly asked consult regarding management of his gallbladder. Patient was initially admitted through the emergency department at [facility] on 10/12/2016 for chest pain. He was found to be in a septic state and was admitted. He was tachycardic to 110 bpm and he had elevated and abnormal LFTs. Significant right pleural effusion was found and images suggested gallbladder wall thickening. Right upper quadrant ultrasound was done but the patient had negative Keller sign. When I interviewed the patient, he reported periumbilical type discomfort and no right upper quadrant pain. No current nausea or vomiting or issues with changes in bowel or bladder habits. He has reportedly been sober since February of this year and it is unclear whether he is involved with AA. He has had evaluation from hepatology and has been recommended to see a transplant program for evaluation. No other major complaints during my visit. ALLERGIES: NO KNOWN DRUG ALLERGIES MEDICATIONS Documented in the electronic records and reviewed by me. Please see the electronic records for details, as well as details for inpatient medications which were also reviewed by me. SOCIAL HISTORY:-Tob;-ETOH (previous significant intake, mainly beer, perhaps 6- 12 per day; reportedly quit February 2016);-IVDU FAMILY HISTORY: There are no significant medical, surgical or oncologic issues in the family as reported by the patient or reflected in the chart. REVIEW OF SYSTEMS: Other than mentioned above, there were no other pertinent positives or pertinent negatives in an otherwise complete 14 point review of systems. PHYSICAL EXAMINATION GENERAL: The patient appears to be a very pleasant gentleman of descent lying in bed, appearing stated age, and otherwise in no acute distress. BMI: 28.5 VITAL SIGNS: AVSS (please also see auto important data if available as well as the electronic records) HEENT: Normocephalic and atraumatic. Extraocular muscles and hearing are grossly intact bilaterally and symmetrically. Sclerae are nonicteric. Oral cavity is clear; oral mucosa appear to be pink and moist. Dentition: Fair to poor with significant decay of some teeth. NECK: Supple. There is no lymphadenopathy or JVD. There is no submental, submandibular or supraclavicular lymphadenopathy. CHEST: Rises symmetrically with each breath; patient is breathing comfortably. There are no audible wheezes, rales or rhonchi on the gross exam. HEART: Pulse is regular and palpable on the right wrist. Capillary refill is normal. Carotid pulses are palpable bilaterally and symmetrically in the neck. EXTREMITIES: Lower extremities contain no pitting edema around the ankles bilaterally and symmetrically. ABDOMEN: Abdomen is soft, nontender and nondistended. No evidence of ascites, organomegaly, caput medusae, engorged subcutaneous veins, or other abnormalities. There are no peritoneal signs or guarding. SKIN: Appears to be pink and feels warm to touch. NEUROLOGIC: Awake, alert, and follows commands appropriately. LABORATORY DATA: See below IMAGING: See electronic chart. Please note that I've personally reviewed all pertinent available images and I agree in general with their overall reported findings. Consultation Date/Type/Reason Admit Date/Time Oct 12, 2016 at 01:24 Constitutional: improved, no complaints Eyes: no complaints ENT: no complaints Respiratory: cough, pain Cardiovascular: no complaints Gastrointestinal: no complaints Genitourinary: no complaints Musculoskeletal: no complaints Skin: no complaints Neurologic: no complaints Endocrine: no complaints Lymphatic: no complaints Psychological: nl mood/affect, no complaints Immunologic: no complaints Past Medical History Medical History: hypertension, other (Liver cirrhosis) Past Surgical History Past Surgical Hx: endoscopy Social History Smoking Status: Never smoker Drug Use: none Exam/Review of Systems Vital Signs Vitals Vital Signs Date Time Temp Pulse Resp B/P Pulse Ox O2 Delivery O2 Flow Rate FiO2 10/23/16 16:21 94 10/23/16 15:52 98.0 17 96/52 96 10/23/16 05:46 Room Air Intake and Output 10/22/16 10/22/16 10/23/16 15:00 23:00 07:00 Intake Total 500 ml 300 ml Balance 500 ml 300 ml Results Result Diagram: 10/23/16 0619 10/23/16 0619 Results 24 hrs Laboratory Tests Test 10/23/16 05:53 10/23/16 06:19 10/23/16 13:20 Lab Scanned Report BLOOD TRANSFUSION White Blood Count 6.0 Red Blood Count 2.16 L Hemoglobin 7.7 L Hematocrit 22.3 L Mean Corpuscular Volume 103.2 H Mean Corpuscular Hemoglobin 35.6 H Mean Corpuscular Hemoglobin Concent 34.5 Red Cell Distribution Width 19.5 H Platelet Count 57 L Mean Platelet Volume 10.0 Neutrophils % 51.3 Lymphocytes % 20.1 Monocytes % 22.4 H Eosinophils % 4.2 Basophils % 0.7 Nucleated Red Blood Cells % 0.0 Neutrophils # (Manual) 3.1 Lymphocytes # 1.2 Monocytes # 1.3 H Eosinophils # 0.3 Basophils # 0.0 Nucleated Red Blood Cells # 0.0 Sodium Level 133 L Potassium Level 4.0 Chloride Level 104 Carbon Dioxide Level 22 Anion Gap 11 Blood Urea Nitrogen 20 Creatinine 1.08 Glucose Level 78 Calcium Level 8.6 Total Bilirubin 7.8 H Direct Bilirubin 1.70 H Indirect Bilirubin 6.1 H Aspartate Amino Transf (AST/SGOT) 101 H Alanine Aminotransferase (ALT/SGPT) 42 Alkaline Phosphatase 126 H Total Protein 6.7 Albumin 2.3 L Globulin 4.40 H Albumin/Globulin Ratio 0.52 Prothrombin Time 27.8 H Prothrombin Time Ratio 2.2 INR International Normalized Ratio 2.56 Medications Medications Current Medications Dextrose (D50w Syringe) 100 ml ONCE PRN IV POC BLOOD GLUCOSE <250 MG/DL Last administered on 10/12/16 01:52; Admin Dose 100 ML; Start 10/12/16 at 01:30 Ondansetron HCl (Zofran Inj) 4 mg Q6H PRN IV NAUSEA AND/OR VOMITING; Start 10/12 at 04:00 Acetaminophen (Tylenol Tab) 650 mg Q6H PRN PO PAIN AND OR ELEVATED TEMP; Start 10/12/16 at 04:00 Morphine Sulfate (morphine) 2 mg Q4H PRN IV pain; Start 10/12/16 at 04:00 Levofloxacin (Levaquin) 500 mg DAILY@06 PO Last administered on 10/23/16 05:14 ; Admin Dose 500 MG; Start 10/14/16 at 06:00 Metronidazole (Flagyl) 500 mg Q8 PO Last administered on 10/23/16 14:59; Admin Dose 500 MG; Start 10/13/16 at 15:30 Lactobacillus Acidophilus/ Rhamnosus (Culturelle) 1 cap BID PO Last administered on 10/23/16 08:25; Admin Dose 1 CAP; Start 10/13/16 at 21:00 Zolpidem Tartrate (Ambien) 5 mg HS PRN PO INSOMNIA Last administered on 22:28; Admin Dose 5 MG; Start 10/14/16 at 18:00 Furosemide (Lasix) 40 mg DAILY@06 PO Last administered on 10/23/16 05:14; Admin Dose 40 MG; Start 10/18/16 at 13:00 Pantoprazole (Protonix Tab) 40 mg BID@,18 PO Last administered on 10/23/16 16:55; Admin Dose 40 MG; Start 10/21/16 at 18:00 PRISCILLA JAMES M.D. Oct 23, 2016 17:16
[2016-10-24] VITALS (12 sets, daily range): BP systolic 98–115; BP diastolic 55–64; PULSE 90–102; RESP 15–20
[2016-10-24] MEDS: ZOLPIDEM 5 MG TAB PO PRN ×2 (00:25→18:53)
[2016-10-24] MEDS: FUROSEMIDE 40 MG TAB PO SCH (06:19)
[2016-10-24] MEDS: PANTOPRAZOLE (EC) 40 MG TAB PO SCH ×2 (06:19→17:50)
[2016-10-24] MEDS: metroNIDAZOLE 500 MG TAB PO SCH ×3 (06:19→21:36)
[2016-10-24] MEDS: LEVOFLOXACIN 500 MG TAB PO SCH (06:19)
[2016-10-24] MEDS: LACTOBACILLUS RHAMNOSUS CAP PO SCH ×2 (08:56→21:36)
[2016-10-24 09:36] LABS: ABNORMAL IP MESSAGE 1; BASOPHILS % 0.5 % (0.0-2.0); EOSINOPHILS # 0.2 10^3/ul (0.0-0.5); EOSINOPHILS % 3.4 % (0.0-7.0); HEMATOCRIT 21.1 % (42.0-52.0); HEMOGLOBIN 7.3 g/dl (14.0-18.0); LYMPHOCYTES % 16.7 % (15.0-51.0); MEAN CORPUSCULAR HEMOGLOBIN 35.6 pg (29.0-33.0); MEAN CORPUSCULAR HGB CONC 34.6 g/dl (32.0-37.0); MEAN CORPUSCULAR VOLUME 102.9 fl (82.0-101.0); MEAN PLATELET VOLUME 10.3 fl (7.4-10.4); MONOCYTE # 1.3 10^3/ul (0.3-0.9); MONOCYTES % 22.6 % (0.0-11.0); NEUTROPHIL # 3.3 10^3/ul (1.6-7.5); PLATELET COUNT 54 10^3/UL (140-415); POSITIVE DIFF @See below; RED BLOOD COUNT 2.05 10^6/ul (4.70-6.10); RED CELL DISTRIBUTION WIDTH 19.4 % (11.5-14.5); WHITE BLOOD COUNT 5.9 10^3/ul (4.8-10.8)
[2016-10-24 09:54] LABS: INR 2.84; PROTIME 30.2 Sec (12.2-14.2); PT RATIO 2.4
--- NOTE | 2016-10-24 15:02 | PN ---
Date/Time of Note Date/Time of Note DATE: 10/24/16 TIME: 14:59 Assessment/Plan VTE Prophylaxis VTE Prophylaxis Intervention: other (coagulopathy) Lines/Catheters IV [facility] Saline Lock Urinary Cath still in place: No Assessment/Plan Assessment/Plan 1. Large right pleural effusion, awaiting for US-guided thoracentesis, will try to give FFP tomorrow, if not correct the INR, will discharge without thoracentesis 2. Cholelithiasis with gallbladder wall thickening on CT/US, HIDA scan is not reliable due to liver cirrhosis, no surgery needed 3. Alcohol induced liver cirrhosis 4. C diff colitis, Continue on Flagyl day 7 and lactobacillus 5. anemia secondary to liver cirrhosis and alcoholism, consider transfuse PRBC tomorrow(FFP today) 6. Alcohol abuse, quit in February 7. Coagulopathy due to chronic alcoholic liver disease 8. Thrombocytopenia, due to chronic liver disease, stable PLT Subjective 24 Hr Interval Summary Free Text/Dictation no shortness of breath, no abdominal pain Exam/Review of Systems Vital Signs Vitals Vital Signs Date Time Temp Pulse Resp B/P Pulse Ox O2 Delivery O2 Flow Rate FiO2 10/24/16 12:19 98.6 91 19 100/59 97 10/23/16 05:46 Room Air Intake and Output 10/23/16 10/23/16 10/24/16 15:00 23:00 07:00 Intake Total 750 ml 500 ml Balance 750 ml 500 ml Exam Constitutional: alert, oriented, well developed Psych: nl mood/affect, no complaints Head: atraumatic, normocephalic Eyes: EOMI, PERRL, nl conjunctiva, nl lids ENMT: nl external ears & nose, nl lips & teeth, nl nasal mucosa & septum Neck: non-tender, supple Respiratory: clear to auscultation, other (low breath sounds on right) Cardiovascular: nl pulses, regular rate and rhythm, No S3, No S4, No bruits, No diastolic murmur, No edema, No gallop, No irregular rhythm, No jugular venous distention (JVD), No murmurs/extra sounds, No other, No rub, No systolic murmur Gastrointestinal: nl liver, spleen, soft Musculoskeletal: nl extremities to inspection Extremities: normal pulses, No calf tenderness, No clubbing, No cyanosis, No edema, No other, No palpable cord, No pitting pedal edema, No tenderness Neurological: MUSIC WORKER II-XII intact, nl mental status, nl speech, nl strength Results Result Diagram: 10/24/16 0844 10/23/16 0619 Results 24 hrs Laboratory Tests Test 10/24/16 08:44 White Blood Count 5.9 Red Blood Count 2.05 L Hemoglobin 7.3 L Hematocrit 21.1 L Mean Corpuscular Volume 102.9 H Mean Corpuscular Hemoglobin 35.6 H Mean Corpuscular Hemoglobin Concent 34.6 Red Cell Distribution Width 19.4 H Platelet Count 54 L Mean Platelet Volume 10.3 Neutrophils % 56.0 Lymphocytes % 16.7 Monocytes % 22.6 H Eosinophils % 3.4 Basophils % 0.5 Nucleated Red Blood Cells % 0.0 Neutrophils # 3.3 Lymphocytes # 1.0 Monocytes # 1.3 H Eosinophils # 0.2 Basophils # 0.0 Nucleated Red Blood Cells # 0.0 Prothrombin Time 30.2 H Prothrombin Time Ratio 2.4 INR International Normalized Ratio 2.84 Medications Medications Current Medications Dextrose (D50w Syringe) 100 ml ONCE PRN IV POC BLOOD GLUCOSE <250 MG/DL Last administered on 10/12/16 01:52; Admin Dose 100 ML; Start 10/12/16 at 01:30 Ondansetron HCl (Zofran Inj) 4 mg Q6H PRN IV NAUSEA AND/OR VOMITING; Start 10/12 at 04:00 Acetaminophen (Tylenol Tab) 650 mg Q6H PRN PO PAIN AND OR ELEVATED TEMP; Start 10/12/16 at 04:00 Morphine Sulfate (morphine) 2 mg Q4H PRN IV pain; Start 10/12/16 at 04:00 Levofloxacin (Levaquin) 500 mg DAILY@06 PO Last administered on 10/24/16 06:19 ; Admin Dose 500 MG; Start 10/14/16 at 06:00 Metronidazole (Flagyl) 500 mg Q8 PO Last administered on 10/24/16 13:46; Admin Dose 500 MG; Start 10/13/16 at 15:30 Lactobacillus Acidophilus/ Rhamnosus (Culturelle) 1 cap BID PO Last administered on 10/24/16 08:56; Admin Dose 1 CAP; Start 10/13/16 at 21:00 Zolpidem Tartrate (Ambien) 5 mg HS PRN PO INSOMNIA Last administered on 00:25; Admin Dose 5 MG; Start 10/14/16 at 18:00 Furosemide (Lasix) 40 mg DAILY@06 PO Last administered on 10/24/16 06:19; Admin Dose 40 MG; Start 10/18/16 at 13:00 Pantoprazole (Protonix Tab) 40 mg BID@,18 PO Last administered on 10/24/16 06:19; Admin Dose 40 MG; Start 10/21/16 at 18:00 LIZ VELASCO MD Oct 24, 2016 15:02
--- NOTE | 2016-10-24 15:15 | PN ---
Date/Time of Note Date/Time of Note DATE: 10/24/16 TIME: 15:14 Assessment/Plan Lines/Catheters IV C[facility]ter Type (from [facility]): Saline Lock [place] in Place (from Nrs): No Assessment/Plan Assessment/Plan [facility] Progress Note Date of Service: 10/24/2016 Place of service: [facility] fifth floor [facility] telemetry Today's Assessment & Plan: Overall stable and doing well. Abdomen remains benign and there is no right upper quadrant pain or tenderness, no fever, normal white blood cell count, and no other major obvious indications of acute cholecystitis or other surgical issues. No indication for acute surgical intervention. I also do not believe that the patient's right pleural effusion is a factor and do not see a major benefit from tapping it at this time, but I leave the final decision in the capable hands of the other physicians taking care of the patient. Of utmost importance is to stabilize the patient enough and to discharge the patient with the plan of expedited review for transplant eligibility. Also extremely important that the patient remains sober and to enroll into a a qualify for transplant evaluation. Reviewed again in detail with the patient (no family present in the room during my discussions) and reviewed with primary team. Answered all questions. Patient appeared to understand and agreed with plans. Previous assessment that applies today: A very-pleasant but unfortunate 60-year-old gentleman with alcoholic cirrhosis complicated by portal hypertension as evidenced by his thrombocytopenia, ascites and pleural effusions, active hepatitis and elevated INR, who has had radiologic findings of thickened gallbladder wall and positive HIDA scan, but no obvious surgical indications for cholecystectomy or other major interventions. In fact, there are significant contraindications for most surgical interventions with the exception of life-threatening situations given the patient's above clinical picture. Furthermore, HIDA scans are notoriously unreliable in the setting of active hepatitis and alcoholic or other types of cirrhosis. In addition, my review of the HIDA scan differs with the official report. I believe that I see a sliver of gallbladder in the images. Patient's pain complaints are also not in the right upper quadrant and patient had negative Keller sign on the ultrasound of the right upper quadrant. In short, I do not see any indication for surgical intervention at this time. Patient is already scheduled to see [facility] for transplant evaluation which would be the strong recommendation from hepatobiliary standpoint. Dr. Andres is the patient' s main ski lift attendant and I already asked the patient's permission and obtained it to communicate with him regarding his hospitalization. With above assessment, I've recommended the following for today: 1. Continue current cares 2. Expedited transplant evaluation 3. Emphasized importance of absolute sobriety and involvement in AA Thank you very much for having me involved in the care of this very pleasant patient and wonderful family. If you have any questions, please feel free to contact me at [phone]. Nature of presenting problem: High severity Please note that, given the extensive number of diagnoses or management options , the extensive amount and/or complexity of data needed to be reviewed, and high risk of complications and/or morbidity or mortality, this qualifies as high complexity type of decision-making. Disclaimer: Inadvertent spelling and grammatical errors are likely due to EHR/ dictation software use and do not reflect on the quality of delivered patient care. Also, please note that the electronic time recorded on this node does not necessarily reflect the actual time of the visit. Updated clinical summary: A very-pleasant but unfortunate 60-year-old gentleman with alcoholic cirrhosis complicated by portal hypertension as evidenced by his thrombocytopenia, ascites and pleural effusions, active hepatitis and elevated INR, who has had radiologic findings of thickened gallbladder wall and positive HIDA scan, but no obvious surgical indications for cholecystectomy or other major interventions. Comorbidities: 1. Alcoholic cirrhosis complicated by portal hypertension as evidenced by his thrombocytopenia, ascites and pleural effusions, active hepatitis with abnormal LFTs and elevated INR 2. C. difficile colitis 3. Grade 1 out of 4 esophageal varices 4. Large right-sided pleural effusion 5. Anemia 6. Coagulopathy with elevated INR 7. Thrombocytopenia with platelets mainly in the 50s and 60s 8. Hypertension Subjective: No major events or complaints; no abd pain and under control with medications; no n/v/d; no sob or cp; + flatus; + BM and normal; + activity Objective: Vitals: See below I's & O's: See below Exam: GENERAL: On exam, the patient was sitting up on his bed and appeared to be comfortable and in no acute distress. He was eating a regular lunch. ABDOMEN: Soft, nontender and nondistended. There are no peritoneal signs or guarding. SKIN: Skin appears to be pink and feels warm to touch. NEUROLOGIC: Patient is awake, alert, and follows commands appropriately. Labs: See below Exam/Review of Systems Vital Signs Vitals Vital Signs Date Time Temp Pulse Resp B/P Pulse Ox O2 Delivery O2 Flow Rate FiO2 10/24/16 12:19 98.6 91 19 100/59 97 10/23/16 05:46 Room Air Intake and Output 10/23/16 10/23/16 10/24/16 15:00 23:00 07:00 Intake Total 750 ml 500 ml Balance 750 ml 500 ml Results Result Diagram: 10/24/16 0844 10/23/16 0619 PRISCILLA JAMES M.D. Oct 24, 2016 15:15
--- NOTE | 2016-10-24 15:46 | PN ---
Date/Time of Note Date/Time of Note DATE: 10/24/16 TIME: 15:44 Assessment/Plan VTE Prophylaxis VTE Prophylaxis Intervention: SCD's Lines/Catheters IV Catheter Type (from [facility]): Saline Lock Urinary Cath still in place: No Assessment/Plan Chief Complaint/Hosp Course Problems: Assessment/Plan Assessment: * Sepsis improved * Pleural effusion managed pulmonary * End stage liver disease * Cirrhosis liver * H/O alcoholism * C difficile colitis EGD * Grade I/IV esophageal varices. No intervention * Severe portal hypertensive gastropathy/gastritis * No biopsies obtained due to severe coagulopathy * Otherwise normal EGD Plan * continue present management * further orders will depend on clinical course * case discussed with DR Sandhu Subjective 24 Hr Interval Summary Free Text/Dictation * Course reviewd with RN * Patient seen and examined * No untoward events overnight Exam/Review of Systems Vital Signs Vitals Vital Signs Date Time Temp Pulse Resp B/P Pulse Ox O2 Delivery O2 Flow Rate FiO2 10/24/16 12:19 98.6 91 19 100/59 97 10/23/16 05:46 Room Air Intake and Output 10/23/16 10/23/16 10/24/16 15:00 23:00 07:00 Intake Total 750 ml 500 ml Balance 750 ml 500 ml Exam Constitutional: alert, oriented Neck: non-tender, supple Respiratory: clear to auscultation, normal air movement Cardiovascular: nl pulses, regular rate and rhythm Gastrointestinal: nl liver, spleen, non-tender, soft Musculoskeletal: nl extremities to inspection, nl gait and stance Neurological: nl speech, nl strength Skin: nl turgor Results Result Diagram: 10/24/16 0844 10/23/16 0619 Results 24 hrs Laboratory Tests Test 10/24/16 08:44 White Blood Count 5.9 Red Blood Count 2.05 L Hemoglobin 7.3 L Hematocrit 21.1 L Mean Corpuscular Volume 102.9 H Mean Corpuscular Hemoglobin 35.6 H Mean Corpuscular Hemoglobin Concent 34.6 Red Cell Distribution Width 19.4 H Platelet Count 54 L Mean Platelet Volume 10.3 Neutrophils % 56.0 Lymphocytes % 16.7 Monocytes % 22.6 H Eosinophils % 3.4 Basophils % 0.5 Nucleated Red Blood Cells % 0.0 Neutrophils # 3.3 Lymphocytes # 1.0 Monocytes # 1.3 H Eosinophils # 0.2 Basophils # 0.0 Nucleated Red Blood Cells # 0.0 Prothrombin Time 30.2 H Prothrombin Time Ratio 2.4 INR International Normalized Ratio 2.84 Medications Medications Current Medications Dextrose (D50w Syringe) 100 ml ONCE PRN IV POC BLOOD GLUCOSE <250 MG/DL Last administered on 10/12/16 01:52; Admin Dose 100 ML; Start 10/12/16 at 01:30 Ondansetron HCl (Zofran Inj) 4 mg Q6H PRN IV NAUSEA AND/OR VOMITING; Start 10/12 at 04:00 Acetaminophen (Tylenol Tab) 650 mg Q6H PRN PO PAIN AND OR ELEVATED TEMP; Start 10/12/16 at 04:00 Morphine Sulfate (morphine) 2 mg Q4H PRN IV pain; Start 10/12/16 at 04:00 Levofloxacin (Levaquin) 500 mg DAILY@06 PO Last administered on 10/24/16 06:19 ; Admin Dose 500 MG; Start 10/14/16 at 06:00 Metronidazole (Flagyl) 500 mg Q8 PO Last administered on 10/24/16 13:46; Admin Dose 500 MG; Start 10/13/16 at 15:30 Lactobacillus Acidophilus/ Rhamnosus (Culturelle) 1 cap BID PO Last administered on 10/24/16 08:56; Admin Dose 1 CAP; Start 10/13/16 at 21:00 Zolpidem Tartrate (Ambien) 5 mg HS PRN PO INSOMNIA Last administered on 00:25; Admin Dose 5 MG; Start 10/14/16 at 18:00 Furosemide (Lasix) 40 mg DAILY@06 PO Last administered on 10/24/16 06:19; Admin Dose 40 MG; Start 10/18/16 at 13:00 Pantoprazole (Protonix Tab) 40 mg BID@06,18 PO Last administered on 10/24/16 06:19; Admin Dose 40 MG; Start 10/21/16 at 18:00 LYDIA BARBOSA NP Oct 24, 2016 15:46
[2016-10-25] VITALS (13 sets, daily range): BP systolic 89–166; BP diastolic 50–77; PULSE 90–99; RESP 18–21
[2016-10-25] MEDS: metroNIDAZOLE 500 MG TAB PO SCH ×3 (06:34→21:26)
[2016-10-25] MEDS: FUROSEMIDE 40 MG TAB PO SCH (06:34)
[2016-10-25] MEDS: LEVOFLOXACIN 500 MG TAB PO SCH (06:34)
[2016-10-25] MEDS: PANTOPRAZOLE (EC) 40 MG TAB PO SCH ×2 (06:34→18:54)
[2016-10-25] MEDS: LACTOBACILLUS RHAMNOSUS CAP PO SCH ×2 (08:58→21:26)
--- NOTE | 2016-10-25 11:23 | PN ---
Date/Time of Note Date/Time of Note DATE: 10/25/16 TIME: 11:19 Assessment/Plan Lines/Catheters IV Catheter Type (from [facility]): Saline Lock [place] in Place (from [facility]): No Assessment/Plan Assessment/Plan [facility] Progress Note Date of Service: 10/25/2016 Place of service: [facility], [place] fifth floor [facility] telemetry Today's Assessment & Plan: Overall stable and doing well. No indication for surgical intervention. No new recommendations. Previous assessment that applies today: A very-pleasant but unfortunate 60-year-old gentleman with alcoholic cirrhosis complicated by portal hypertension as evidenced by his thrombocytopenia, ascites and pleural effusions, active hepatitis and elevated INR, who has had radiologic findings of thickened gallbladder wall and positive HIDA scan, but no obvious surgical indications for cholecystectomy or other major interventions. In fact, there are significant contraindications for most surgical interventions with the exception of life-threatening situations given the patient's above clinical picture. Furthermore, HIDA scans are notoriously unreliable in the setting of active hepatitis and alcoholic or other types of cirrhosis. In addition, my review of the HIDA scan differs with the official report. I believe that I see a sliver of gallbladder in the images. Patient's pain complaints are also not in the right upper quadrant and patient had negative Keller sign on the ultrasound of the right upper quadrant. In short, I do not see any indication for surgical intervention at this time. Patient is already scheduled to see [facility] for transplant evaluation which would be the strong recommendation from hepatobiliary standpoint. Dr. Andres is the patient' s main telecommunications support and I already asked the patient's permission and obtained it to communicate with him regarding his hospitalization. With above assessment, I've recommended the following for today: 1. Continue current cares 2. Expedited transplant evaluation 3. Emphasize importance of absolute sobriety and involvement in AA Thank you very much for having me involved in the care of this very pleasant patient and wonderful family. If you have any questions, please feel free to contact me at [phone]. Nature of presenting problem: High severity Please note that, given the extensive number of diagnoses or management options , the extensive amount and/or complexity of data needed to be reviewed, and high risk of complications and/or morbidity or mortality, this qualifies as high complexity type of decision-making. Disclaimer: Inadvertent spelling and grammatical errors are likely due to EHR/ dictation software use and do not reflect on the quality of delivered patient care. Also, please note that the electronic time recorded on this node does not necessarily reflect the actual time of the visit. Updated clinical summary: A very-pleasant but unfortunate 60-year-old gentleman with alcoholic cirrhosis complicated by portal hypertension as evidenced by his thrombocytopenia, ascites and pleural effusions, active hepatitis and elevated INR, who has had radiologic findings of thickened gallbladder wall and positive HIDA scan, but no obvious surgical indications for cholecystectomy or other major interventions. Comorbidities: 1. Alcoholic cirrhosis complicated by portal hypertension as evidenced by his thrombocytopenia, ascites and pleural effusions, active hepatitis with abnormal LFTs and elevated INR 2. C. difficile colitis 3. Grade 1 out of 4 esophageal varices 4. Large right-sided pleural effusion 5. Anemia 6. Coagulopathy with elevated INR 7. Thrombocytopenia with platelets mainly in the 50s and 60s 8. Hypertension Subjective: No major events or complaints per report; no reported abd pain and under control with medications; no n/v/d; no sob or cp; + flatus; + BM and normal; + activity Objective: Vitals: See below I's & O's: See below Exam: GENERAL: On exam, the patient was laying in bed comfortably and sleeping soundly. I did not wake the patient up. SKIN: Skin appears to be pink. NEUROLOGIC: Patient was laying in bed comfortably and sleeping soundly. I did not wake the patient up. Labs: See below Exam/Review of Systems Vital Signs Vitals Vital Signs Date Time Temp Pulse Resp B/P Pulse Ox O2 Delivery O2 Flow Rate FiO2 10/25/16 08:25 99 10/25/16 07:58 98.5 18 89/53 97 10/23/16 05:46 Room Air Intake and Output 10/24/16 10/24/16 10/25/16 15:00 23:00 07:00 Intake Total 200 ml 400 ml Balance 200 ml 400 ml Results Result Diagram: 10/24/16 0844 10/23/16 0619 PRISCILLA JAMES M.D. Oct 25, 2016 11:23
[2016-10-25 14:01] LABS: INR 2.12; PT RATIO 1.9
--- NOTE | 2016-10-25 14:45 | PN ---
Date/Time of Note Date/Time of Note DATE: 10/25/16 TIME: 14:44 Assessment/Plan VTE Prophylaxis VTE Prophylaxis Intervention: SCD's Lines/Catheters IV C[facility]ter Type (from [facility]): Saline Lock Urinary Cath still in place: No Assessment/Plan Chief Complaint/Hosp Course Problems: Assessment/Plan Assessment: * Sepsis improved * Pleural effusion managed pulmonary * End stage liver disease * Cirrhosis liver * H/O alcoholism * C difficile colitis EGD * Grade I/IV esophageal varices. No intervention * Severe portal hypertensive gastropathy/gastritis * No biopsies obtained due to severe coagulopathy * Otherwise normal EGD Plan * continue present management * further orders will depend on clinical course * case discussed with DR Sandhu Subjective 24 Hr Interval Summary Free Text/Dictation * Course reviewed * Patient seen and examined * No untoward events overnight Exam/Review of Systems Vital Signs Vitals Vital Signs Date Time Temp Pulse Resp B/P Pulse Ox O2 Delivery O2 Flow Rate FiO2 10/25/16 13:31 97 10/25/16 11:46 98.6 21 90/50 97 10/23/16 05:46 Room Air Intake and Output 10/24/16 10/24/16 10/25/16 15:00 23:00 07:00 Intake Total 200 ml 400 ml Balance 200 ml 400 ml Exam Constitutional: alert, frail Respiratory: clear to auscultation, normal air movement Cardiovascular: regular rate and rhythm Gastrointestinal: non-tender, soft Musculoskeletal: nl extremities to inspection, nl gait and stance Extremities: normal pulses Neurological: nl mental status Results Result Diagram: 10/24/16 0844 10/23/16 0619 Results 24 hrs Laboratory Tests Test 10/25/16 13:13 Prothrombin Time 24.0 #H Prothrombin Time Ratio 1.9 INR International Normalized Ratio 2.12 Medications Medications Current Medications Dextrose (D50w Syringe) 100 ml ONCE PRN IV POC BLOOD GLUCOSE <250 MG/DL Last administered on 10/12/16t 01:52; Admin Dose 100 ML; Start 10/12/16 at 01:30 Ondansetron HCl (Zofran Inj) 4 mg Q6H PRN IV NAUSEA AND/OR VOMITING; Start 10/12 at 04:00 Acetaminophen (Tylenol Tab) 650 mg Q6H PRN PO PAIN AND OR ELEVATED TEMP; Start 10/12/16 at 04:00 Morphine Sulfate (morphine) 2 mg Q4H PRN IV pain; Start 10/12/16 at 04:00 Levofloxacin (Levaquin) 500 mg DAILY@06 PO Last administered on 10/25/16 06:34 ; Admin Dose 500 MG; Start 10/14/16 at 06:00 Metronidazole (Flagyl) 500 mg Q8 PO Last administered on 10/25/16 14:28; Admin Dose 500 MG; Start 10/13/16 at 15:30 Lactobacillus Acidophilus/ Rhamnosus (Culturelle) 1 cap BID PO Last administered on 10/25/16 08:58; Admin Dose 1 CAP; Start 10/13/16 at 21:00 Zolpidem Tartrate (Ambien) 5 mg HS PRN PO INSOMNIA Last administered on 18:53; Admin Dose 5 MG; Start 10/14/16 at 18:00 Furosemide (Lasix) 40 mg DAILY@06 PO Last administered on 10/25/16 06:34; Admin Dose 40 MG; Start 10/18/16 at 13:00 Pantoprazole (Protonix Tab) 40 mg BID@06,18 PO Last administered on 10/25/16 06:34; Admin Dose 40 MG; Start 10/21/16 at 18:00 LYDIA BARBOSA NP Oct 25, 2016 14:45
--- NOTE | 2016-10-25 15:37 | DS ---
Date/Time of Note Date/Time of Note DATE: 10/25/16 TIME: 15:25 Discharge Summary Admission/Discharge Info Admit Date/Time Oct 12, 2016 at 01:24 Discharge Date/Time Discharge Diagnosis 1. Large right pleural effusion, related to liver cirrhosis, follow up with PCP 2. Cholelithiasis with gallbladder wall thickening on CT/US, no surgery needed 3. Alcohol induced liver cirrhosis 4. C diff colitis, finished treatment 5. anemia secondary to liver cirrhosis and alcoholism, transfuse PRBC one unit 6. Alcohol abuse, quit in February 7. Coagulopathy due to chronic alcoholic liver disease 8. Thrombocytopenia, due to chronic liver disease, stable PLT Patient Condition: Stable Hx of Present Illness This is a 60-year-old male with a history of hypertension and liver cirrhosis who presented to the emergency department complaining of chest pain and fever. Pain is slightly left-sided, described as pressure-like and is nonradiating. It started yesterday. Reported nausea but no vomiting. He also reported occasional shortness of breath which is chronic. When he presented to the ER, he was febrile with a temperature of 100.6, tachycardic with a heart rate of 110. Labs shows a potassium of 6.3, hemoglobin 8, PLT 97, sodium 130, lactic acid has been as high as 3.9 but the last one 2.3.TB 7.7 with DB of 1.5, AST 153. Chest x-ray shows mild to moderate right pleural effusion with probable superimposed infiltrate. . Hospital Course For chest pain, it is considered noncardiac with negative troponin and unremarkable echocardiography. No chest pain after admission. Patient had diarrhea that he has C. Diff colitis. Patient was started on flagyl on 10/14/2016, no diarrhea any more. No further treatment needed on discharge. Patient had abdominal pain, that he had CT scan and ultrasound both revealed gallballder thickening and Ct scan showed gallstones. HIDA scan is positive but patient has severe liver disease, that make it unreliable. Consulted with general surgeon Dr. Biswas, who mac not feel patient has cholecystitis, no surgery needed. Patient has large pleural effusion but thoracentesis is not done since persistent coagulopathy even he is getting vitamin K and multiple FFPs. Patient clinically asymptomatic from it, no evidence of infection, further persue thoracentesis may give more harm than benefit. I will have him follow up with PCP outpatient. He may need thoracentesis if he becomes symptomatic or there is indication of infection. Patient is anemic. H/H are 7.3/21.1 on 10/24/2016. I will give him one unit PRBC before discharge. Home Meds Reported Medications Furosemide* (Furosemide*) 40 Mg Tablet, 40 MG PO BID, TAB 10/12/16 Spironolactone* (Aldactone*) 50 Mg Tablet, 100 MG PO BID, #60 TAB 10/11/16 Follow-up Plan PCP and GI in one week Primary Care Provider Onofre Oconnor MD Pending Labs Laboratory Tests Test 10/25/16 13:13 Prothrombin Time 24.0Sec (12.2-14.2) Prothrombin Time Ratio 1.9 INR International Normalized Ratio 2.12 LIZ VELASCO MD Oct 25, 2016 15:35
[2016-10-25] MEDS ORDERED: LIDOCAINE 1% (MPF) 5 ML VIAL ONE (17:37)
--- NOTE | 2016-10-25 18:34 | RADRPT ---
PROCEDURE: XR Chest. CLINICAL INDICATION: Shortness of breath. Post right thoracentesis. TECHNIQUE: Single frontal view. COMPARISON: 10/11/2016. FINDINGS: There is a moderate right pleural effusion and moderate right basilar atelectasis, slightly worse th an seen previously. The lungs are otherwise clear. The heart is mildly enlarged. There is no pleural effusion. There is no pneumothorax. IMPRESSION: 1. Moderate right pleural effusion and moderate bibasilar atelectasis, slightly worse than seen pre viously. 2. Mild cardiomegaly. 3. No pneumothorax following right thoracentesis. RPTAT: QQ .Tian Pettit MD, MD Date Time Electronically viewed and signed by .Tian Pettit MD, MD on 10/25/2016 18:33 .R/
--- NOTE | 2016-10-25 18:35 | RADRPT ---
PROCEDURE: US guided right thoracentesis. CLINICAL INDICATION: Shortness of breath. Right pleural effusion. TECHNIQUE: Prior to the procedure, informed consent was obtained. The risks, benefits, and alternatives were e xplained to the patient or the patient's family, including but not limited to bleeding, infection, p ain, visceral or vascular damage, shock, pneumothorax, chest tube placement, air embolism, and . The patient or the patient's family understood the risks and the alternatives and wished to proce ed with the study. Informed written consent was obtained. A procedural pause was performed. The patient's name, date of , and procedure to be performed were verified. Ultrasound of the right hemithorax was performed in the axial and sagittal planes. A right pleural e ffusion is noted. Utilizing ultrasound guidance, optimal location for entry to the pleural cavity wa s ascertained. The overlying skin was prepped and draped in the usual sterile fashion. Approximate ly 10 ml of 1% Xylocaine was injected locally for pain control. Using ultrasound guidance, a 5-Fren Yueh catheter was introduced into the right pleural space without difficulty. Fluid was aspirated . A large amount of fluid remains in the right pleural space following the right thoracentesis. COMPARISON: Chest x-ray dated 10/11/2016. FINDINGS: Initial ultrasound demonstrates fluid in the right pleural space. Approximately 2.0 liters of serou s fluid was aspirated and sent to the laboratory. IMPRESSION: 1. Satisfactory ultrasound-guided right thoracentesis. 2. Large amount of fluid remains in the right pleural space following the right thoracentesis. RPTAT: QQ .Tian Pettit MD, MD Date Time Electronically viewed and signed by .Tian Pettit MD, on 10/25/2016 18:34 .R/
[2016-10-25 19:51] LABS: FLUID LD 305 U/L; FLUID TOTAL PROTEIN < 2.0 g/dl; FLUID TYPE PLEURAL FLUID
[2016-10-25 20:10] LABS: FLD MN% 80.7 %; FLD PMN% 19.3 %; FLD RBC 27 /uL; FLD WBC 150 /cmm
[2016-10-25 20:27] LABS: FLD TYPE PLEURAL
[2016-10-25 20:28] LABS: FLD CLARITY BLOODY; FLD COLOR RED
[2016-10-26] VITALS (9 sets, daily range): BP systolic 87–98; BP diastolic 53–56; PULSE 89–100; RESP 16–20
[2016-10-26] MEDS: metroNIDAZOLE 500 MG TAB PO SCH ×2 (05:23→12:39)
[2016-10-26] MEDS: LEVOFLOXACIN 500 MG TAB PO SCH (05:23)
[2016-10-26] MEDS: PANTOPRAZOLE (EC) 40 MG TAB PO SCH (05:23)
[2016-10-26] MEDS: FUROSEMIDE 40 MG TAB PO SCH (05:24)
[2016-10-26] MEDS: LACTOBACILLUS RHAMNOSUS CAP PO SCH (09:20)
--- NOTE | 2016-10-26 13:35 | PDOCDIS ---
Discharge Instructions DIAGNOSIS Discharge Diagnosis 1. Large right pleural effusion, related to liver cirrhosis, follow up with PCP 2. Cholelithiasis with gallbladder wall thickening on CT/US, no surgery needed 3. Alcohol induced liver cirrhosis 4. C diff colitis, finished treatment 5. anemia secondary to liver cirrhosis and alcoholism, transfuse PRBC one unit 6. Alcohol abuse, quit in February 7. Coagulopathy due to chronic alcoholic liver disease 8. Thrombocytopenia, due to chronic liver disease, stable PLT CONDITION Patient Condition: Fair HOME CARE INSTRUCTIONS: Special Diet: 2 gm Na ACTIVITY: Activity Restrictions: Slowly Increase Activity Do not operate Machinery Do not operate Power Tool FOLLOW UP/APPOINTMENTS Follow-up Plan PCP and GI in one week SCHOOL/WORK RELEASE May return to School/Work with: With Restrictions MARIO PICKETT MD Oct 26, 2016 13:35
--- NOTE | 2016-10-26 13:37 | PN ---
Date/Time of Note Date/Time of Note DATE: 10/26/16 TIME: 13:35 Assessment/Plan VTE Prophylaxis VTE Prophylaxis Intervention: contraindicated Lines/Catheters IV Catheter Type (from [facility]): Saline Lock Urinary Cath still in place: No Assessment/Plan Problems: (1) Cirrhosis of liver with ascites Status: Chronic Comment: Noted. He is being evaluated for transplantation Qualifiers: Hepatic cirrhosis type: alcoholic cirrhosis Qualified Code: K70.31 - Alcoholic cirrhosis of liver with ascites (2) Portal hypertension Status: Chronic Comment: Stable at this time. (3) Anemia Status: Acute Comment: Patient is stable. Ready for discharge. Qualifiers: Anemia type: other cause Other causes of anemia: other cause, not classified Qualified Code: D64.89 - Anemia due to other cause, not classified Subjective 24 Hr Interval Summary Free Text/Dictation Transfer made for discharge yesterday however the patient was not discharge. This was due to him having a high volume thoracentesis at 6 PM last night for 2 L. He tolerated the procedure without complications. He reports today that he is breathing much better and feeling much better. Constitutional: no complaints Respiratory: shortness of breath (Proved) Cardiovascular: no complaints Gastrointestinal: no complaints Genitourinary: no complaints Exam/Review of Systems Vital Signs Vitals Vital Signs Date Time Temp Pulse Resp B/P Pulse Ox O2 Delivery O2 Flow Rate FiO2 10/26/16 12:17 96 10/26/16 12:06 98.0 16 97/55 97 10/25/16 18:15 Room Air Intake and Output 10/25/16 10/25/16 10/26/16 15:00 23:00 07:00 Intake Total 267 ml Output Total 400 ml Balance 267 ml -400 ml Exam Constitutional: alert, oriented Neck: non-tender, supple Respiratory: other (Right base dullness) Cardiovascular: nl pulses, regular rate and rhythm Results Result Diagram: 10/24/16 0844 10/23/16 0619 Results 24 hrs Laboratory Tests Test 10/25/16 18:30 Body Fluid Type PLEURAL FLUID Body Fluid Volume 1100.0 Body Fluid Color RED Body Fluid Appearance BLOODY Body Fluid WBC 150 Body Fluid RBC (Auto) 27 Body Fluid Polynuclear WBCs (%) 19.3 Body Fluid Mononuclear Cells % Auto 80.7 Body Fluid Total Protein < 2.0 Body Fluid Lactate Dehydrogenase 305 Medications Medications Current Medications Dextrose (D50w Syringe) 100 ml ONCE PRN IV POC BLOOD GLUCOSE <250 MG/DL Last administered on 10/12/16 01:52; Admin Dose 100 ML; Start 10/12/16 at 01:30 Ondansetron HCl (Zofran Inj) 4 mg Q6H PRN IV NAUSEA AND/OR VOMITING; Start 10/12 at 04:00 Acetaminophen (Tylenol Tab) 650 mg Q6H PRN PO PAIN AND OR ELEVATED TEMP; Start 10/12/16 at 04:00 Morphine Sulfate (morphine) 2 mg Q4H PRN IV pain; Start 10/12/16 at 04:00 Levofloxacin (Levaquin) 500 mg DAILY@06 PO Last administered on 10/26/16 05:23 ; Admin Dose 500 MG; Start 10/14/16 at 06:00 Metronidazole (Flagyl) 500 mg Q8 PO Last administered on 10/26/16 12:39; Admin Dose 500 MG; Start 10/13/16 at 15:30 Lactobacillus Acidophilus/ Rhamnosus (Culturelle) 1 cap BID PO Last administered on 10/26/16 09:20; Admin Dose 1 CAP; Start 10/13/16 at 21:00 Zolpidem Tartrate (Ambien) 5 mg HS PRN PO INSOMNIA Last administered on 18:53; Admin Dose 5 MG; Start 10/14/16 at 18:00 Furosemide (Lasix) 40 mg DAILY@06 PO Last administered on 10/26/16 05:24; Admin Dose 40 MG; Start 10/18/16 at 13:00 Pantoprazole (Protonix Tab) 40 mg BID@06,18 PO Last administered on 10/26/16 05:23; Admin Dose 40 MG; Start 10/21/16 at 18:00 MARIO PICKETT MD Oct 26, 2016 13:37
== END 2016-10-26 16:25 | disposition home or self-care (01) | DRG 872 ==
LOC: E/R 20:25 → MS4 10-12 01:24
PROVIDERS: ADMIT Internal Medicine; ATTEND Internal Medicine
PROC: 30233K1 Transfusion of Nonautologous Frozen Plasma into Peripheral Vein, Percutaneous Approach (ICD-10-PCS; 2016-10-12)
PROC: 30233N1 Transfusion of Nonautologous Red Blood Cells into Peripheral Vein, Percutaneous Approach (ICD-10-PCS; 2016-10-13)
PROC: 0DJ08ZZ Inspection of Upper Intestinal Tract, Via Natural or Artificial Opening Endoscopic (ICD-10-PCS; principal; 2016-10-21 20:00)
PROC: 0W993ZX Drainage of Right Pleural Cavity, Percutaneous Approach, Diagnostic (ICD-10-PCS; 2016-10-25)
DX: A41.9 Sepsis, unspecified organism (principal); J91.8 Pleural effusion in other conditions classified elsewhere; D68.4 Acquired coagulation factor deficiency; A04.7 Enterocolitis due to Clostridium difficile; I85.00 Esophageal varices without bleeding; E87.1 Hypo-osmolality and hyponatremia; K76.6 Portal hypertension; D69.59 Other secondary thrombocytopenia; E87.5 Hyperkalemia; K72.90 Hepatic failure, unspecified without coma; K70.30 Alcoholic cirrhosis of liver without ascites; D63.8 Anemia in other chronic diseases classified elsewhere; I10 Essential (primary) hypertension; K80.20 Calculus of gallbladder without cholecystitis without obstruction; K31.89 Other diseases of stomach and duodenum; K29.60 Other gastritis without bleeding; E80.6 Other disorders of bilirubin metabolism; B19.20 Unspecified viral hepatitis C without hepatic coma; E16.2 Hypoglycemia, unspecified; F10.21 Alcohol dependence, in remission
CPT/HCPCS: 32555; 36415; 36430; 71010; 74176; 76705; 78227; 80053; 80061; 81001; 81003; 82247; 82248; 82270; 82306; 82607; 82728; 82746; 82947; 82962; 83605; 83615; 83735; 84100; 84132; 84157; 84443; 84484; 85014; 85018; 85025; 85610; 85730; 86644; 86704; 86709; 86803; 86850; 86900; 86901; 86920; 87040; 87070; 87075; 87086; 87102; 87116; 87338; 87340; 87522; 88104; 88305; 89051; 93005; 93306; 94640; 94644; 94664; 96365; 96375; 97110; 97116; 97161; 97166; 97530; A9537; C9113; J0456; J0696; J1815; J1956; J2250; J2270; J2405; J3010; J7030; J7040; P9016; P9059